=== PATIENT | female | born 1980 | race Caucasian/White ===

== ENCOUNTER 2024-02-10 22:39 | Emergency (ER) | payer MEDICAID, SELFPAY ==
[2024-02-10 22:44] VITALS: BP 153/111; PULSE 75; RESP 18; TEMP 36.1; O2SAT 97; BMI 62.1
--- NOTE | 2024-02-10 22:58 | EDS_ITS ---
HPI History of Present Illness Chief Complaint: Shortness of Breath Informant: patient Onset/Context/Timing Onset: Today Context: sudden Timing: Continuous Quality: Positive for - (Cannot catch my breath) Worsened by: Nothing Relieved by: Nothing Associated Symptoms cough, rhinorrhea and clear sputum; Negative for post nasal drip, ear pain, fever, sore throat, chills, sweats, white sputum, yellow sputum or green sputum Chest Pain: Positive for Sharp Narrative Narrative: Patient presents with chest pain and shortness of breath that began tonight. Patient states it began while she was getting ready to go to work. Patient states she feels like she cannot catch her breath. Patient states it has been constant. Patient states nothing makes it better nothing makes it worse. Patient states she is coughing up some clear sputum. Patient admits to some rhinorrhea which has been green and thick. Patient denies any fevers or chills. Patient states her pain is mainly over the left upper chest. Patient states that earlier it was on the right side. Patient describes it as sharp. Patient states she was recently diagnosed with influenza B last week. [facility] Medical History (Updated 02/11/24 @ 01:[address] Jesus Calloway DO) Diabetes Elevated LDL cholesterol level H/O blood clots HTN (hypertension) Home Medications carvedilol 6.25 mg tablet 6.25 mg PO BID 02/10/24 [History Last Taken Unknown] furosemide 20 mg tablet 20 mg PO DAILY 02/10/24 [History Last Taken Unknown] lisinopril 10 mg tablet 10 mg PO BID 02/10/24 [History Last Taken Unknown] metformin 500 mg tablet 500 mg PO BID 02/10/24 [History Last Taken Unknown] potassium chloride 10 mEq tablet,extended release (Klor-Con) 10 meq PO DAILY 02/10/24 [History Last Taken Unknown] azithromycin 250 mg tablet 250 mg PO DAILY #4 TABLETS 02/11/24 [Rx Last Taken Unknown] Allergy/AdvReac Type Severity Reaction Status Date / Time loratadine [From Claritin] Allergy Swelling Verified 02/10/24 22:40 Surgical History (Updated 02/10/24 @ 23:[address] Jesus Calloway, ) H/O dilation and curettage Hx of tonsillectomy Social History Smoking Status: Former smoker ROS ROS ED Constitutional Constitutional ED: Denies chills or fever(s) Eyes Eyes: Denies blurry vision or change in vision ENT ENT ED: Denies rhinorrhea or sore throat Cardiovascular Cardiovascular: Reports chest pain; Denies palpitations Respiratory/Chest Respiratory/Chest: Reports cough and dyspnea Gastrointestinal Gastrointestinal: Denies nausea or vomiting Genitourinary Genitourinary ED: Denies dysuria or hematuria Musculoskeletal Musculoskeletal: Denies back pain or neck pain Integumentary Denies abscess or rash Neurologic Neurologic: Denies headache(s) or weakness Allergic/Immunologic Allergic/Immunologic ED: Denies mouth swelling or urticaria EXAM Physical Exam Const Vital Signs: 02/10/24 22:44 02/10/24 23:26 02/10/24 23:26 Temperature 96.9 F L Temperature Source Temporal Pulse Rate 75 Respiratory Rate 18 Respiratory Effort Short of Breath Respiratory Depth Normal Respiratory Pattern Tachypnea Blood Pressure 153/111 H Blood Pressure Mean 125 Pulse Ox 97 Oxygen Delivery Method Room Air Room Air 02/11/24 00:40 Temperature Temperature Source Pulse Rate 70 Respiratory Rate 23 H Respiratory Effort Respiratory Depth Respiratory Pattern Blood Pressure 131/82 H Blood Pressure Mean 98 Pulse Ox 100 Oxygen Delivery Method Room Air Positive well nourished, well developed and obese General Appearance ED: well developed and NAD Nutritional Appearance: obese HEENT Reports moist mucous membranes Neck supple, no meningeal signs and no JVD Chest Wall Chest Narrative: There is reproducible tenderness of the left upper chest wall. There is no bony crepitance or step-off noted. There is no subcutaneous emphysema noted. Resp normal respiratory effort and clear to auscultation bilaterally Cardio regular rate and regular rhythm GI non-tender and non-distended Palpation: soft Neuro oriented x3, CN's II-XII intact bilaterally and no sensory deficits noted Zoey Coma Scale: document GCS findings Spontaneous Obeys Commands Oriented 15 Sensorium / Orientation: alert Motor Exam: strength 5/5 throughout Psych mental status grossly normal MDM MDM MDM Narrative Medical decision making narrative: Differential diagnosis includes cardiac dysrhythmia, cardiac ischemia, musculoskeletal chest pain, pulmonary embolism, pneumonia, and anxiety. EKG will be obtained to assess for cardiac dysrhythmia and cardiac ischemia. Chest x-ray will be obtained to assess for pneumonia and pneumothorax. CBC will be obtained to assess for leukocytosis and anemia. Basic metabolic profile will be obtained to assess for electrolyte abnormality and renal function. High- sensitivity troponin will be obtained to assess for cardiac ischemia. D-dimer will be obtained to assess for pulmonary embolism. Lab Data Attestation: I reviewed the patient's lab results. Lab results narrative: CBC was reviewed and was within normal limits. Basic metabolic profile was reviewed. BUN was slightly elevated at 21 and creatinine was slightly elevated at 1.03. GFR was normal. Anion gap was normal. High-sensitivity troponin was reviewed and was normal at 16. D-dimer was reviewed and was slightly elevated at 0.63. Labs: Laboratory Results - last 24 hr 02/10/24 02/10/24 23:09 23:47 WBC 8.2 RBC 4.95 Hgb 14.2 Hct 45.3 MCV 91.5 MCH 28.7 MCHC 31.3 L RDW Std Deviation 43.9 RDW Coeff of Nima 13.1 Plt Count 315 MPV 10.3 Immature Gran % (Auto) 0.200 Neut % (Auto) 72.6 H Lymph % (Auto) 18.2 L Richardson % (Auto) 5.7 Eos % (Auto) 2.8 Baso % (Auto) 0.5 Absolute Neuts (auto) 6.0 Absolute Lymphs (auto) 1.50 Nucleated RBC % 0 D-Dimer Quant (PE/DVT) 0.63 H* Sodium 139 Potassium 4.2 Chloride 106 Carbon Dioxide 28.0 Anion Gap 5 BUN 21 H Creatinine 1.03 H Estim Creat Clear Calc 122.36 Est GFR (MDRD) Af Amer 76 Est GFR (MDRD) Non-Af 62 BUN/Creatinine Ratio 20.4 H Glucose 122 H Calcium 9.3 Troponin I High Sens 16 Radiography Chest X-Ray - ED: 2 View, Read by ED Physician, Read by Radiologist and No Acute Disease CTA PE Study: No Evidence of PE and No Evidence of Dissection Diagnostic Testing: Clinical Impression(s) from Imaging Studies Chest X-Ray 02/10/24 23:06 IMPRESSION: No radiographic evidence of acute cardiopulmonary disease. Electronically Signed: Marcellus Weiner MD at 23:50 EDT , Chest CTA 02/11/24 01:02 IMPRESSION: No pulmonary embolism. Groundglass opacities of the right lower lobe could be infectious or inflammatory. Electronically Signed: Mick Prather MD at 1:46 EDT , PA and lateral chest x-ray was obtained. There are 2 views. On my independent interpretation, lung grider are clear. There is normal cardiac silhouette. Bony thorax is normal. There is no acute process noted. Radiologist also interpreted the x-ray and agrees. Because of the elevated D-dimer, CTA of the chest was obtained. There are mild groundglass opacities of the right lower lobe which could be infectious or inflammatory. This was interpreted by the radiologist was also independently reviewed by myself. EKG Initial EKG: Interpretation: Sinus Rhythm (76) and No Acute Injury Pattern Comments: EKG was obtained. On my independent interpretation, it showed a normal sinus rhythm with a rate of 76. NH interval, QRS interval, and QTc i ntervals were all normal. [place] was normal. There are no acute ST or T wave changes. Prior EKG tracings: not available for review Prior: No Prior Treatment and Re-Evaluation :: Patient was given aspirin here. Patient was advised of her findings. Patient was given a dose of Zithromax here. Patient was given a prescription for Zithromax. Patient was instructed to follow-up with her primary care physician in 5 to 7 days. Patient was instructed to take Tylenol as needed for pain or fever. Patient understood and was agreeable with the plan. All questions were answered. Discharge Plan Triage Chief Complaint: Shortness of Breath ED Provider: Jesus Calloway Dx/Rx/DC Orders Clinical Impression: Dyspnea, Pneumonia Instructions: ED Dyspnea, ED Pneumonia (Adult) Prescriptions: New azithromycin [azithromycin] 250 mg tablet 250 mg PO DAILY Qty: 4 0RF No Action furosemide 20 mg tablet 20 mg PO DAILY carvedilol 6.25 mg tablet 6.25 mg PO BID Rx Instructions: must administer with a meal/food potassium chloride [Klor-Con 10] 10 mEq tablet extended release 10 meq PO DAILY metformin 500 mg tablet 500 mg PO BID lisinopril 10 mg tablet 10 mg PO BID Stand Alone Forms: ED Work / School Excuse Primary Care Provider: Lesly Ware NP Referrals: Lesly Ware NP, [employer] [Primary Care Provider] - 5-7 Days Disposition Disposition: Home, Self Care
--- NOTE | 2024-02-10 23:05 | EKG12_ITS ---
Test Reason : DYSRHYTHMIA Blood Pressure : / mmHG Vent. Rate : 076 BPM Atrial Rate : 076 BPM P-R Int : 136 ms QRS Dur : 080 ms QT Int : 374 ms P-R-T Axes : -04 003 002 degrees QTc Int : 420 ms Normal sinus rhythm Low voltage Borderline Confirmed by Aries Christian ([id number]), sound editor MARITA DAY ([id number]) on 02/12/2024 1:42:07 PM Referred By: KATE Confirmed By:Aries Christian
--- NOTE | 2024-02-10 23:06 | RAD_ITS ---
INDICATION: chest pain EXAMINATION/TECHNIQUE: X-RAY - XR Chest 2 Views COMPARISON: None. FINDINGS: LINES/DEVICES: None. LUNGS: No consolidation, edema or effusion. No pneumothorax. MEDIASTINUM AND CARDIOVASCULAR STRUCTURES: Cardiac silhouette not enlarged. Central airways and mediastinal contour are unremarkable. BONES AND SOFT TISSUES: Unremarkable. RAD/Chest PA and Lateral IMPRESSION: No radiographic evidence of acute cardiopulmonary disease. Electronically Signed: Marcellus Weiner MD at 23:50 EDT ,
[2024-02-10] MEDS: Aspirin 81 MG TAB.CHEW 324 MG PO (23:19)
[2024-02-10 23:26] VITALS: O2SAT 97
[2024-02-11 00:31] LABS: Basophil# 0.04 X10^3/uL; Basophil% 0.5 % (0-1); Eosinophil# 0.23 X10^3/uL; Eosinophils% 2.8 % (0-5); Hematocrit 45.3 % (37-47); Hemoglobin 14.2 g/dL (12.0-15.0); Lymphocyte % 18.2 % (19-41); Mean Corp Hgb Conc 31.3 g/dL (32-36); Mean Corpuscular Hgb 28.7 pg (27.0-32.0); Mean Corpuscular Volume 91.5 fL (81-99); Mean Platelet Vol. 10.3 fl (6.2-12.0); Monocyte# 0.47 X10^3/uL; Monocyte% 5.7 % (0-10); NRBC Flagged by Analyzer 0 % (0-5); Neutrophil # 5.97 X10^3/uL (2.7-7.7); Neutrophil % 72.6 % (47-70); Platelet Count 315 K/mm3 (150-450); RBC Distribution Width CV 13.1 % (11.6-14.6); RBC Distribution Width SD 43.9 fl (35.1-43.9); Red Blood Count 4.95 M/mm3 (4.2-5.4); White Blood Count 8.2 K/mm3 (4.4-11.0)
[2024-02-11 00:34] LABS: Anion Gap 5 (5-15); BUN 21 mg/dL (7-18); BUN/Creat Ratio 20.4 RATIO (10-20); Calcium,Total 9.3 mg/dL (8.5-10.1); Chloride 106 mmol/L (98-107); Creatinine, Serum 1.03 mg/dL (0.55-1.02); EST Glomerular Filtration Rate 62 mL/min (>60); Est Glom Filt Rate - Afr Amer 76 mL/min (>60); Estimated Creatinine Clearance 122.36 ml/min; Glucose 122 mg/dL (74-106); Potassium 4.2 mmol/L (3.5-5.1); Sodium Level 139 mmol/L (136-145); Troponin-I HS 16 pg/mL (3.0-54.0)
[2024-02-11 00:40] VITALS: BP 131/82; PULSE 70; RESP 23; O2SAT 100
[2024-02-11 00:56] LABS: D-Dimer Quantitative (DVT/PE) 0.63 FEU/ug/m (0.27-0.49)
--- NOTE | 2024-02-11 01:02 | CT_ITS ---
STUDY: CTA CHEST REASON FOR EXAM: Female, 43 years old. Elevated D-dimer RADIATION DOSAGE (If Supplied By Facility): CTDIvol = ( 13.85 ) mGy, DLP = ( 518.88 ) mGycm TECHNIQUE: The examination was performed with the intravenous administration of IV 100mL Isovue-370. Post-processing of the angiographic images was performed, with multiplanar reformation and 3D reconstruction. Individualized dose optimization techniques were used for this CT. COMPARISON: Prior study dated: Radiograph 02/10/2024 FINDINGS: PULMONARY ARTERIES: Normal enhancement of the main pulmonary artery and right and left pulmonary arteries. Normal enhancement of the bilateral peripheral pulmonary arteries. There is no demonstrated pulmonary embolism. AORTA: Normal thoracic aorta and visualized great vessels. There is no demonstrated aortic dissection. MEDIASTINUM: Normal heart and pericardium. Normal mediastinum. Normal hilar regions. LUNGS/PLEURA: Normal visualized trachea and bronchi. The lungs are well expanded. Fissural lymph node along the right major fissure near the apex. Minimal groundglass opacities are seen in the right lower lobe. Pleural effusion. No pneumothorax. CHEST WALL: Normal chest wall structures. UPPER ABDOMEN: Normal visualized upper abdomen. OSSEOUS STRUCTURES: No acute or suspicious osseous abnormality. Mild degenerative changes of the spine. CT/CTA Chest W/WO Contrast IMPRESSION: No pulmonary embolism. Groundglass opacities of the right lower lobe could be infectious or inflammatory. Electronically Signed: Mick Prather MD at 1:46 EDT ,
[2024-02-11 01:59] VITALS: BP 128/84; BP 149/99; PULSE 76; PULSE 78; RESP 22; RESP 24; TEMP 36.4; O2SAT 99
[2024-02-11] MEDS: Azithromycin 250 MG Tablet 500 MG PO (02:02)
== END 2024-02-11 03:05 | disposition home or self-care (01) ==
PROVIDERS: Emergency Provider Emergency Medicine; PCP Nurse Practitioner Family; Visit Provider Emergency Medicine
DX: J18.9 Pneumonia, unspecified organism (principal); E11.9 Type 2 diabetes mellitus without complications; R06.00 Dyspnea, unspecified; I10 Essential (primary) hypertension; Z87.891 Personal history of nicotine dependence; Z79.899 Other long term (current) drug therapy; Z79.84 Long term (current) use of oral hypoglycemic drugs
CPT/HCPCS: 71046; 71275; 80048; 84484; 85025; 85379; 93005; 99284; Q9967; A4216

== ENCOUNTER 2024-02-23 22:41 | Emergency (ER) | payer MEDICAID, SELFPAY ==
[2024-02-23 22:42] VITALS: BP 143/84; PULSE 76; RESP 20; TEMP 36.6; O2SAT 100
--- NOTE | 2024-02-23 23:04 | RAD_ITS ---
INDICATION: cough, sob, brief R CP EXAMINATION/TECHNIQUE: X-RAY - XR Chest 2 Views COMPARISON: No relevant prior comparison study available FINDINGS: LINES/DEVICES: None. LUNGS: No consolidation, edema or effusion. No pneumothorax. MEDIASTINUM AND CARDIOVASCULAR STRUCTURES: Cardiac silhouette not enlarged. Central airways and mediastinal contour are unremarkable. BONES AND SOFT TISSUES: Unremarkable. RAD/Chest PA and Lateral IMPRESSION: No radiographic evidence of acute cardiopulmonary disease. Electronically Signed: Daniela Thomason MD at 23:37 EDT ,
--- NOTE | 2024-02-23 23:05 | EKG12_ITS ---
Test Reason : CP Blood Pressure : / mmHG Vent. Rate : 078 BPM Atrial Rate : 078 BPM P-R Int : 142 ms QRS Dur : 080 ms QT Int : 372 ms P-R-T Axes : 004 019 022 degrees QTc Int : 424 ms Normal sinus rhythm Normal ECG Confirmed by Aries Christian ([id number]), advertising editor MARITA DAY ([id number]) on 02/25/2024 10:54:12 AM Referred By: DELLA Confirmed By:Aries Christian
--- NOTE | 2024-02-23 23:05 | ED.VIS.CHEST ---
HPI History of Present Illness Chief Complaint: Chest Pain Informant: patient Narrative Narrative: Patient started having a cough yesterday occasionally productive of clear sputum. She has occasionally had dyspnea with exertion even when she is not coughing. She does not have asthma. 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 It is not present right now. At rest right now she is not dyspneic. She has had no fevers or chills. 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 No travel out of the region recently. No history of heart or lung problems, she is a diabetic and takes metformin. States 2 years ago she was diagnosed with a PE, she does not know the contacts. However, she states she did not take anticoagulants because she could not afford $500 per month. When asked if she considered other medications, she states she did not follow-up and was not aware that there were cheaper alternatives. She denies any recent immobilization, hospitalization, long travel, surgery, leg pain or swelling, presyncope or syncope. [facility] Medical History Diabetes Elevated LDL cholesterol level H/O blood clots HTN (hypertension) Home Medications carvedilol 6.25 mg tablet 6.25 mg PO BID 02/10/24 [History Last Taken Unknown] furosemide 20 mg tablet 20 mg PO DAILY 02/10/24 [History Last Taken Unknown] lisinopril 10 mg tablet 10 mg PO BID 02/10/24 [History Last Taken Unknown] metformin 500 mg tablet 500 mg PO BID 02/10/24 [History Last Taken Unknown] potassium chloride 10 mEq tablet,extended release (Klor-Con) 10 meq PO DAILY 02/10/24 [History Last Taken Unknown] levofloxacin 750 mg tablet 750 mg PO Q24H #5 tabs 02/24/24 [Rx Last Taken Unknown] Allergy/AdvReac Type Severity Reaction Status Date / Time loratadine [From Claritin] Allergy Swelling Verified 02/23/24 22:44 Surgical History (Updated 02/10/24 @ 23:[address] Jesus Calloway, DO) H/O dilation and curettage Hx of tonsillectomy Social History Smoking Status: Former smoker ROS ROS ED Constitutional Constitutional ED: Denies chills or fever(s) Eyes Eyes: Denies change in vision or diplopia ENT ENT ED: Denies rhinorrhea or sore throat Cardiovascular Cardiovascular: Reports as per HPI and chest pain; Denies leg edema or palpitations Respiratory/Chest Respiratory/Chest: Reports cough, dyspnea on exertion and sputum Gastrointestinal Gastrointestinal: Denies abdominal pain, diarrhea, nausea or vomiting Genitourinary Genitourinary ED: Denies dysuria or hematuria Musculoskeletal Musculoskeletal: Denies back pain or neck pain Integumentary Denies abscess or rash Neurologic Neurologic: Denies headache(s), paresthesias or weakness Psychiatric Psychiatric: Denies anxiety or suicidal thoughts EXAM Physical Exam Const Vital Signs: 02/23/24 22:42 02/23/24 22:56 02/23/24 23:42 Temperature 97.9 F Temperature Source Temporal Pulse Rate 76 98 Respiratory Rate 20 H 16 Respiratory Effort Normal Non-Labored Blood Pressure 143/84 H 129/82 H Blood Pressure Mean 103 97 Pulse Ox 100 99 Oxygen Delivery Method Room Air Room Air 02/24/24 00:00 02/24/24 01:00 02/24/24 02:22 Temperature Temperature Source Pulse Rate 98 73 79 Respiratory Rate 16 26 H 16 Respiratory Effort Blood Pressure 130/85 H 122/76 H 132/92 H Blood Pressure Mean 100 91 105 Pulse Ox 99 100 98 Oxygen Delivery Method Room Air Room Air Room Air Positive well nourished, well developed and obese General Appearance ED: well developed and NAD Nutritional Appearance: obese HEENT Reports moist mucous membranes normocephalic and atraumatic Eyes PERRL and EOMs intact bilaterally Neck full ROM and supple Chest Wall inspection of chest normal and palpation of chest normal Resp normal respiratory effort and clear to auscultation bilaterally Cardio regular rate, regular rhythm and no murmurs Rate: Negative for tachycardic Peripheral Pulses: pulses 2+ throughout GI non-tender and non-distended Auscultation: normoactive bowel sounds Palpation: soft Back/Spine no CVA tenderness General Back: other FROM Extremity normal to inspection General Extremety ED: Negative for edema, pulses abnormal or tenderness General Extremity: Negative for edema or pulses abnormal Neuro oriented x3, CN's II-XII intact bilaterally and no sensory deficits noted Sensorium / Orientation: awake and alert Motor Exam: strength 5/5 throughout Skin no rashes or lesions noted and no wounds Heart Score History: Slightly/Non-Suspicious ECG: Normal Age: </= 45 years Risk Factors: 1 or 2 Risk Factors Troponin: </= Normal Limit Score: 1 MDM MDM MDM Narrative Medical decision making narrative: Initially considering PE given she has a history of it although she is not tachycardic and not hypoxic, performed a D-dimer, chest x-ray, EKG. EKG on my interpretation is normal. 2 view chest x-ray my interpretation is also normal. Radiology is in agreement with the chest x-ray. The D-dimer is slightly elevated. Therefore, I reflexively ordered a CTA after seeing that she had normal renal function. I happened to notice that this was just 2 weeks ago that this was last drawn. Additionally, she had a D-dimer done at that time which was also nonspecifically elevated like this 1 is. This led me to see that she had a CTA 2 weeks ago, it was negative for pulmonary embolism, and showed nonspecific groundglass infiltrates. The patient did not tell me that she was here 2 weeks ago until I asked her about all of this, she states she was here for the same thing and they treated me for pneumonia. Hence, this is why she came today and she wants to have the CAT scan. I advised her it is not necessary to put her kidneys at risk with contrast for another PE evaluation if she just had that ruled out, but I am willing to obtain a CT without contrast and she is agreeable. I reviewed the results as well as the report which I agree with, it appears to be identical to the CT that she had 2 weeks ago. However, radiology interprets the scan as similar but a little more prominent and not able to rule out pneumonia/infection, although he does not report that there is airspace consolidation. I do not think this is likely recurrent bacterial infectious etiology, and since it looks very similar without additional opacities, I do not think repeating her labs are necessary emergently. In speaking with her about her visit 2 weeks ago, she was placed on a Z-Joaquín, she states it seemed to fix her cough and then later her cough seemed to gradually come back and is worse now. I did repeat her troponin, it is negative and lower than it was 2 weeks ago. There are other noninfectious etiologies that could explain groundglass opacities, this is nonspecific. I recommend that she follow-up for further evaluation, she may need test that are not available in the emergency department such as an echocardiogram, although her pattern on imaging is less likely to be cardiogenic pulmonary edema. Differential here includes interstitial lung processes, fibrosis, nonfibrotic hypersensitivity pneumonitis, vasculitis, sarcoidosis, eosinophilic pneumonia although on her labs a couple weeks ago she did not have eosinophilia; as well as viral infections including pneumonia and bronchiolitis. To this effect, we did perform the only viral swab that we are able to obtain stat which is RSV/influenza/COVID, it is negative, but this does not rule out the possibility of other viral infections that could cause this. Of note the groundglass opacities in this patient are very few and they are peripheral. At this point given that she seemed to improve on antibiotics before, I am going to put her on Levaquin 750 for 5 days, and refer her to pulmonology. She states her prior PCP stopped taking her insurance, she was given pamphlet for PCPs that she can check to see if they take her insurance. Lab Data Attestation: I reviewed the patient's lab results. Labs: Laboratory Results - last 24 hr 02/23/24 02/23/24 00:08 23:21 D-Dimer Quant (PE/DVT) 0.79 H* Troponin I High Sens 11 Radiography Diagnostic Testing: Clinical Impression(s) from Imaging Studies Chest X-Ray 02/23/24 23:04 IMPRESSION: No radiographic evidence of acute cardiopulmonary disease. Electronically Signed: Daniela Thomason MD at 23:37 EDT , Chest CT 02/24/24 00:10 IMPRESSION: Ill-defined groundglass opacities are seen in the right lower lobe may represent pneumonia there are slightly more prominent when compared to the previous study. Multiple bilateral lung nodules are also noted have nonspecific appearance, the largest measures approximately 8 mm is in the superior segment of the right lower lobe, axial image 48, series 4. A short-term follow-up in 6 months is recommended to exclude a neoplastic process Electronically Signed: Daniela Thomason MD at 2:18 EDT Reading Location ID and State: [facility] / [place] Tel , Service support , Rhythm Strip Rhythm Strip: Sinus Rhythm Rate: 80 Ectopy: PVC(s) (Occasional) EKG Initial EKG: Attestation: I personally reviewed and interpreted this EKG as follows: Interpretation: Sinus Rhythm and No Acute Injury Pattern Comments: Normal EKG Discharge Plan Triage Chief Complaint: Chest Pain ED Provider: Tiago Thompson Dx/Rx/DC Orders Clinical Impression: YANES (dyspnea on exertion), Chest pain, non-cardiac, Ground glass opacity present on imaging of lung, Pulmonary nodule Instructions: ED Dyspnea Prescriptions: New levofloxacin 750 mg tablet 750 mg PO Q24H Qty: 5 0RF No Action furosemide 20 mg tablet 20 mg PO DAILY carvedilol 6.25 mg tablet 6.25 mg PO BID Rx Instructions: must administer with a meal/food potassium chloride [Klor-Con 10] 10 mEq tablet extended release 10 meq PO DAILY metformin 500 mg tablet 500 mg PO BID lisinopril 10 mg tablet 10 mg PO BID Primary Care Provider: Care Physician,No Primary Referrals: Shelton Sutherland DO [Med Staff - Active Staff] - As soon as possible (call for appt) Activity Restrictions/Additional Instructions: See included pamphlet for primary care doctors that you can contact to see if they take your insurance Disposition Disposition: Home, Self Care
[2024-02-23 23:42] VITALS: BP 129/82; PULSE 98; RESP 16; O2SAT 99
[2024-02-23 23:43] LABS: D-Dimer Quantitative (DVT/PE) 0.79 FEU/ug/m (0.27-0.49)
[2024-02-24] VITALS: BP 130/85; PULSE 98; RESP 16; O2SAT 99
--- NOTE | 2024-02-24 00:10 | CT_ITS ---
INDICATION: sob, R chest pain, cough EXAMINATION: CT CHEST WITHOUT CONTRAST - CT Chest W/O Contrast Injection TECHNIQUE: Helically acquired images were obtained of the chest. A radiation dose optimization technique was used for this scan. IV Contrast dosage and agent: None. RADIATION DOSAGE (If Supplied By Facility): CTDIvol = ( 20.15 ) mGy, DLP = ( 669.60 ) mGycm COMPARISON: 02/11/2024 FINDINGS: LUNGS, PLEURA AND LARGE AIRWAYS: Ill-defined groundglass opacities are seen in the right lower lobe may represent pneumonia there are slightly more prominent when compared to the previous study. Multiple bilateral lung nodules are also noted have nonspecific appearance, the largest measures approximately 8 mm is in the superior segment of the right lower lobe, axial image 48, series 4. A short-term follow-up in 6 months is recommended to exclude a neoplastic process THYROID: No thyroid lesions. HEART AND PERICARDIUM: Heart size is normal. No pericardial effusion. CORONARY ARTERIES: Coronary artery calcification VESSELS: Thoracic aorta is not dilated. MEDIASTINUM AND POOJA: No mediastinal or hilar adenopathy. Esophagus is unremarkable. No hiatal hernia. UPPER ABDOMEN: No acute pathology. BONES: No suspicious lytic or blastic abnormality. CT/Chest without Contrast IMPRESSION: Ill-defined groundglass opacities are seen in the right lower lobe may represent pneumonia there are slightly more prominent when compared to the previous study. Multiple bilateral lung nodules are also noted have nonspecific appearance, the largest measures approximately 8 mm is in the superior segment of the right lower lobe, axial image 48, series 4. A short-term follow-up in 6 months is recommended to exclude a neoplastic process Electronically Signed: Daniela Thomason MD at 2:18 EDT ,
[2024-02-24] MEDS: 0.9% Normal Saline (500mL Bag) 500 ML 999 ML IV (00:26)
[2024-02-24 00:40] LABS: Troponin-I HS 11 pg/mL (3.0-54.0)
[2024-02-24 01:00] VITALS: BP 122/76; PULSE 73; RESP 26; O2SAT 100
[2024-02-24 02:22] VITALS: BP 132/92; PULSE 79; RESP 16; O2SAT 98
[2024-02-24 02:39] VITALS: BP 130/62; PULSE 79; RESP 16; TEMP 36.7; O2SAT 96
== END 2024-02-24 02:40 | disposition home or self-care (01) ==
PROVIDERS: Emergency Provider Emergency Medicine; Visit Provider Emergency Medicine
DX: R06.09 Other forms of dyspnea (principal); E11.9 Type 2 diabetes mellitus without complications; R07.89 Other chest pain; R91.1 Solitary pulmonary nodule; I10 Essential (primary) hypertension; E66.9 Obesity, unspecified; Z79.899 Other long term (current) drug therapy; Z79.84 Long term (current) use of oral hypoglycemic drugs; Z86.711 Personal history of pulmonary embolism; Z87.891 Personal history of nicotine dependence
CPT/HCPCS: 71046; 71250; 84484; 85379; 87631; 93005; 96360; 96361; 99283; J7030; A4216

== ENCOUNTER 2025-09-08 17:11 | Emergency (ER) | payer MEDICAID, SELFPAY ==
[2025-09-08 17:13] VITALS: BP 137/103; PULSE 67; RESP 18; TEMP 36; O2SAT 98
[2025-09-08 17:15] VITALS: BMI 68.1
--- NOTE | 2025-09-08 18:08 | RAD_ITS ---
PROCEDURE: CHEST PA AND LATERAL 09/08/2025 REASON FOR EXAM: HTN TECHNIQUE: Procedure Code: RADCXR Modality: DX Procedure: CHEST PA AND LATERAL COMPARISON: None. FINDINGS: Lungs/Pleura: Clear. No pneumothorax or sizable pleural effusion. Heart/Mediastinum: Within normal limits. Bones/Soft tissues: Degenerative changes of the spine. RAD/Chest PA and Lateral IMPRESSION: No acute cardiopulmonary disease. Reading Location: [id number]
--- NOTE | 2025-09-08 18:09 | EKG12_ITS ---
Test Reason : DYSRHYTHMIA Blood Pressure : */* mmHG Vent. Rate : 70 BPM Atrial Rate : 70 BPM P-R Int : 160 ms QRS Dur : 76 ms QT Int : 376 ms P-R-T Axes : 28 5 11 degrees QTcB Int : 406 ms Normal sinus rhythm Low voltage QRS Borderline Confirmed by Aries Christian ([id number]), book or script editor FARRAH OCHOA ([id number]) on 09/09/2025 1:48:17 PM Referred By: Confirmed By: Aries Christian
[2025-09-08 18:14] VITALS: BP 116/73; PULSE 74
--- OUTSIDE RECORDS SUMMARY | 2025-09-08 18:18 | XMS RPT_ITS | CCD ---
Author Organization [facility] Care Team Providers Care Customer Experience Associate Name Role Phone NEYMAR DIEGO CNP Attending Unavailable NEYMAR DIEGO CNP Primary Care Unavailable NEYMAR DIEGO CNP Admitting Unavailable Unavailable Primary Care Provider UnavailTiago Peralta Attending Unavailable Care Physician, No Primary Primary Care Unava ilJesus Greenwood Attending Unavailable Chaz CROWN IRONER OPERATOR, Neymar Primary Care Unavailable Nataliia TRANSPORTATION COORDINATOR.JHONNY Donna Marion Primary Care Provider TRILL, DONNA C Referring Unavailable TRILL, DONNA C Primary Care Unavailable NATALIIA, DONNA C Attending Unavailable SARAHLL, DONNA C Primary Care Unavailable JOSESITO RIZZO Referring Unavailable TRILL, DONNA C Primary Care Unavailable TRILL, DONNA C Referring Unavailable TRILL, DONNA C Primary Care Unavailable TRILL, DONNA C Primary Care Unavailable TRILL, DONNA C Referring Unavailable TRILL, DONNA C Referring Unavailable TRILL, DONNA C Primary Care Unavailable TRILL, DONNA C Primary Care Unavailable CHELSEA RICKS Attending Unavailable TRILL, DONNA C Primary Care Unavailable JOSESITO RIZZO Attending Unavailable Allergies Allergy Classification Reported Allergen(s) Allergy Type Date of Onset Reaction(s) Facility Loratadine (1 source) Loratadine Drug Allergy 4 Other: See Comments [facility] (20 sources) Loratadine; Translations: [LORATADINE] Drug Allergy 4 Other: See Comments [facility] (1 source) Loratadine Drug Allergy 4 [facility] Repository Medications Current Medications Medication Drug Class(es) Dates Sig (Normalized) Sig (Original) atorvastatin 20 mg oral tablet (20 sources) HMG-CoA Reductase Inhibitor Start: 07-14-2024 End: 06-25-2025 take 1 tablet by mouth once daily at bedtime atorvastatin (LIPITOR) 20 mg tablet Take 1 tablet by mouth daily at bedtime. 90 tablet 1 12/27/2024 Active Start: 02-11-2024 take 1 tablet by debby th once daily at bedtime atorvastatin (LIPITOR) 20 mg tablet Take 20 mg by mouth daily at bedtime. 02/11/2024 Active Comment on above: Take 20 mg by mouth daily at bedtime. benoxinate hydrochloride 4 mg/ml / fluorescein sodium 3 mg/ml ophthalmic solution (2 sources) Diagnostic Dye Start: 08-01-2024 End: 08-01-2024 fluorescein-benoxi rashmi 0.3-0.4 % 1 Drop (FLURESS) Start: 08-01-2024 End: 08-01-2024 1 Drop, BOTH EYES, DIRECT ED, Starting on Sun08/01/24 at 1100, Until Sun08/01/24 at 2259, Administer for applanation tonometry. In the event of a Fluress shortage, administer [place]-Fluor 1 drop into both eyes as directed for applanation tonometry Blood-Glucose Meter,Continuo us (DEXCOM G6 PATHOLOGY LABORATORY DIRECTOR) misc (16 sources) Start: 12-27-2024 Blood-Glucose Meter,Continuous (DEXCOM G6 PATHOLOGY LABORATORY DIRECTOR) misc Indications: Controlled type 2 diabetes mellitus without complication, with long-term current use of insulin (HCC) USE TO CHECK BLOOD SUGAR AT LEAST 4 TIMES DAILY 1 Each 12/27/2024 Active Start: 10-07-2024 End: 12-27-2024 Blood-Glucose Meter,Continuo us (DEXCOM G6 PATHOLOGY LABORATORY DIRECTOR) misc Indications: Controlled type 2 diabetes mellitus without complication, with long-term current use of insulin (HCC) Use to check blood sugar at least four (4) times daily. 1 Each 10/07/2024 12/27/2024 Discontinued Start: 10-07-2024 Blood-Glucose Meter,Continuous (DEXCOM G6 PATHOLOGY LABORATORY DIRECTOR) misc Indications: Controlled type 2 diabetes mellitus without complication, with long-term current use of insulin (HCC) Use to check blood sugar at least four (4) times daily. 1 Each 10/07/2024 Active Blood-Glucose Sensor (DEXCOM G6 SENSOR) mesfin (16 sources) Start: 10-07-2024 Blood-Glucose Sensor (DEXCOM G6 SENSOR) mesfin Indications: Controlled type 2 diabetes mellitus without complication, with long-term current use of insulin (HCC) Apply new sensor every ten (10) days to abdomen. 9 Each 3 10/07/2024 Active Blood-Glucose Transmitter (DEXCOM G6 TRANSMITTER) mesfin (16 sources) Start: 10-07-2024 Blood-Glucose Transmitter (DEXCOM G6 TRANSMITTER) mesfin Indications: Controlled type 2 diabetes mellitus without complication, with long-term current use of insulin (HCC) Apply new transmitter every 90 days. Clean transmitter with an alcohol swab with each sensor change. 1 Each 3 10/07/2024 Active carvedilol 6.25 mg oral tablet (20 sources) alpha-Adrenerg ic Eliana, beta-Adrenergi c Eliana Start: 07-14-2024 End: 06-11-2025 take 1 tablet by mouth every twelve hours carvedilol (COREG) 6.25 mg tablet TAKE 1 TABLET BY MOUTH EVERY 12 HOURS 180 tablet 06/11/2025 Active Start: 02-10-2024 take 6.25 mg by mout h twice daily at mealtime Carvedilol Active 6.25 MG PO TWICE A DAY February 10, 2024 12:00am must administer with a meal/food Start: 12-18-2023 take 1 tablet by debby th every twelve hours carvedilol (COREG) 6.25 mg tablet Take 1 tablet by mouth every 12 hours. 12/18/2023 Active Comment on above: Take 1 tablet by debby th every 12 hours. cholecalciferol 0.01 mg oral tablet (20 sources) Vitamin D Start: take 2 capsules by mouth once VITAMIN D-3 10 mcg (400 unit) tab Take 2 capsules by mouth every afternoon. 05/20/2024 Active Start: 04-08-2024 End: 04-08-2025 take 2 capsules by mouth once daily Cholecalciferol, Vitamin D3, (VITAMIN D-3) 50 mcg (2,000 unit) cap Indications: Vitamin D deficiency Take 2 capsules by mouth once daily. 60 capsule 11 04/08/2024 Active ergocalciferol 1.25 mg oral capsule (20 sources) Provitamin D2 Compound Start: 06-13-2024 End: 08-04-2025 take 1 capsule by mouth every week ergocalciferol 50,000 unit capsule (VITAMIN D2, DRISDOL) Take 1 capsule by mouth once a week 4 capsule 07/13/2025 Active furosemide 20 mg oral tablet (20 sources) Loop Diuretic Start: 07-14-2024 End: 06-11-2025 take 1 tablet by mouth once furosemide (LASIX) 20 mg tablet TAKE 1 TABLET BY MOUTH ONCE DAILY EVERY AFTERNOON 90 tablet 06/11/2025 Active Start: 12-18-2023 take 1 tablet by mouth once fu rosemide (LASIX) 20 mg tablet Take 1 tablet by mouth every afternoon. 12/18/2023 Active Comment on above: Take 1 tablet by debby th every afternoon. 3 ml insulin aspart, human 100 unt/ml pen injector (20 sources) Insulin Analog Start: 12-27-2024 End: 01-05-2025 insulin aspart U-100 (NOVOLOG FLEXPEN U-100 INSULIN) 100 unit/mL (3 mL) Indications: Controlled type 2 diabetes mellitus without complication, with long-term current use of insulin (HCC) INJECT 3 UNITS AT EACH MEAL PLUS 1 UNIT FOR EVERY 20 MG /DL OVER 100 ON GLUCOMETER. MAX DAILY USE 40 UNITS PER DAY 36 mL 1 01/05/2025 Active Start: 02-14-2024 End: 12-25-2024 NOVOLOG FLEXPEN U-100 INSULI N 100 unit/mL (3 mL) Indications: Controlled type 2 diabetes mellitus without complication, with long-term current use of insulin (HCC) INJECT 3 UNITS AT EACH MEAL PLUS 1 UNIT FOR EVERY 20 MG /DL OVER 100 ON GLUCOMETER. MAX DAILY USE 40 UNITS PER DAY 36 mL 1 07/14/2024 12/25/2024 Discontinued Comment on above: INJECT 3 UNITS AT EA CH MEAL PLUS 1 UNIT FOR EVERY 20 MG /DL OVER 100 ON GLUCOMETER. MAX DAILY USE 40 UNITS PER DAY insulin glargine-yfgn (SEMGLEE) 100 unit/mL (3 mL) insulin pen (9 sources) Start: 03-11-2025 End: 09-07-2025 insulin glargine-yfgn (SEMGLEE) 100 unit/mL (3 mL) insulin pen Inject 15 Units subcutaneously daily at bedtime. 6 mL 4 03/11/2025 09/07/2025 Active Start: 01-07-2025 End: 03-11-2025 insulin glargine-yfgn (SEMGL EE) 100 unit/mL (3 mL) insulin pen INJECT 15 UNITS SUBCUTANEOUSLY ONCE DAILY AT BEDTIME 3 mL 11 01/07/2025 03/11/2025 Discontinued Start: 01-07-2025 insulin glargi ne-yfgn (SEMGLEE) 100 unit/mL (3 mL) insulin pen INJECT 15 UNITS SUBCUTANEOUSLY ONCE DAILY AT BEDTIME 3 mL 11 01/07/2025 Active levonorgestrel 0.513422 mg/hr intrauterine system (20 sources) Progestin, Progestin-containing Intrauterine Device levonorgestrel (MIRENA) 21 mcg/24 hr (8 yrs) 52 mg IUD 1 Each by INTRAUTERINE route one time only. Active lisinopril 10 mg oral tablet (20 sources) Angiotensin Converting Enzyme Inhibitor Start: 2023 End: 2024 take 1 tablet by mouth every twelve hours lisinopril (ZESTRIL) 10 mg tablet TAKE 1 TABLET BY MOUTH EVERY 12 HOURS 180 tablet 06/11/2025 Active Start: 02-10-2024 take 10 mg by mouth twice andrés y Lisinopril Active 10 MG PO TWICE A DAY February 10, 2024 12:00am Start: 12-18-2023 take 1 tablet by debby th every twelve hours lisinopril (ZESTRIL) 10 mg tablet Take 1 tablet by mouth every 12 hours. 12/18/2023 Active Comment on above: Take 1 tablet by debby th every 12 hours. metFORMIN hydrochloride 500 mg oral tablet (20 sources) Biguanide Start: 03-13-2025 End: 06-11-2025 take 1 tablet by mouth every twelve hours metFORMIN (GLUCOPHAGE) 500 mg tablet TAKE 1 TABLET BY MOUTH EVERY 12 HOURS 180 tablet 06/11/2025 Active Start: 07-14-2024 End: 01-10-2025 take 1 tablet by mouth every twelve hours metFORMIN (GLUCOPHAGE) 500 mg tablet TAKE 1 TABLET BY MOUTH EVERY 12 HOURS 180 tablet 12/23/2024 Active Start: 02-10-2024 take 500 mg by mouth twice daily Metformin Active 500 MG PO TWICE A DAY February 10, 2024 12:00am Start: 12-18-2023 take 1 tablet by debby th every twelve hours metFORMIN (GLUCOPHAGE) 500 mg tablet Take 1 tablet by mouth every 12 hours. 12/18/2023 Active Comment on above: [facility] phenylephrine hydrochloride 25 mg/ml ophthalmic solution (1 source) alpha-1 Adrenergic Agonist Start: End: PHENYLephrine 2.5 % 1 Drop (AK-DILATE, JAY-SYNEPHRINE) potassium chloride 10 meq extended release oral tablet (20 sources) Start: End: take 1 tablet by mouth once potassium chloride (K-TAB) 10 mEq tablet Take 1 tablet by mouth every afternoon. 90 tablet 1 12/27/2024 06/25/2025 Active Start: 12-18-2023 End: 06-16-2024 take 1 tablet by mouth once potassium chloride (K-TAB) 10 mEq tablet Take 1 tablet by mouth every afternoon. 30 tablet 1 06/16/2024 Active Comment on above: [facility] predniSONE 20 mg oral tablet (2 sources) Start: 06-06-2024 End: 06-11-2024 take 2 tablets by mouth once daily predniSONE (DELTASONE) 20 mg tablet Take 2 tablets by mouth once daily for 5 days. 10 tablet 0 06/06/2024 06/11/2024 Active Start: 02-26-2024 End: 03-02-2024 take 2 tablets by mouth once daily predniSONE (DELTASONE) 20 mg tablet Take 2 tablets by mouth once daily for 5 days. 10 tablet 0 02/26/2024 03/02/2024 Active Comment on above: Take 2 tablets by mo [facility] once daily for 5 days. tropicamide 10 mg/ml ophthalmic solution (2 sources) Anticholinergic Start: 08-01-2024 End: 08-01-2024 tropicamide 1 % 1 Drop (MYDRIACYL) Start: 08-01-2024 End: 08-01-2024 1 Drop, BOTH EYES, DIRECT ED, Starting on Sun08/01/24 at 1100, Until Sun08/01/24 at 2259, Administer for dilation Completed/Discontinued Medications Medication Drug Class(es) Dates Sig (Normalized) Sig (Original) amoxicillin 875 mg / clavulanate 125 mg oral tablet (3 sources) Penicillin-class Antibacterial Start: 06-06-2024 End: 06-16-2024 take 1 tablet by mouth every twelve hours amoxicillin-clavul anate potassium (AUGMENTIN) 875-125 mg per tablet Take 1 tablet by mouth every 12 hours for 10 days. 20 tablet 0 06/06/2024 06/13/2024 Discontinued Start: 02-26-2024 End: 03-07-2024 take 1 tablet by mouth every twelve hours amoxicillin-clavulanate potassium (AUGMENTIN) 875-125 mg per tablet Take 1 tablet by mouth every 12 hours for 10 days. 20 tablet 0 02/26/2024 03/07/2024 Active Comment on above: Take 1 tablet by debby every 12 hours for 10 days. azithromycin 250 mg oral tablet (4 sources) Macrolide Antimicrobial Start: End: azithromycin (ZITHROMAX) 250 mg tablet insulin glargine 100 unt/ml injectable solution (20 sources) Insulin Analog Start: End: inject 15 [IU] by subcutaneous injection once daily at bedtime insulin glargine (LANTUS) 100 unit/mL injection Inject 15 Units subcutaneously daily at bedtime. 4.5 mL 11 01/03/2025 01/07/2025 Discontinued Start: 12-18-2023 End: 01-10-2025 LANTUS SOLOSTAR U-100 INSULI N 100 unit/mL (3 mL) Indications: Controlled type 2 diabetes mellitus without complication, with long-term current use of insulin (HCC) INJECT 15 UNITS SUBCUTANEOUSLY TWICE DAILY 27 mL 12/23/2024 01/03/2025 Discontinued Comment on above: INJECT 15 UNITS SUBC UTANEOUSLY TWICE DAILY ipratropium bromide 0.042 mg/actuat metered dose nasal spray (20 sources) Anticholinergic Start: 02-26-20 End: 06-25-20 ipratropium bromide (ATROVENT) 42 mcg (0.06 %) nasal spray Use 2 Sprays in the nose three times a day. 27 mL 3 02/26/2024 06/25/2024 Comment on above: Use 2 Sprays in the nose three times a day. levoFLOXacin 750 mg oral tablet (3 sources) Quinolone Antimicrobial Start: 02-24-20 End: 03-11-20 take 1 tablet by mouth once levoFLOXacin (LEVAQUIN) 750 mg tablet Take 1 tablet by mouth every afternoon. 0 02/24/2024 03/11/2024 Discontinued Start: 02-24-2024 take 750 mg by mouth every twenty-four hours Levofloxacin Active 750 MG PO Q24H February 24, 2024 12:00am Comment on above: Take 1 tablet by debby th every afternoon. oseltamivir 75 mg oral capsule (2 sources) Neuraminidase Inhibitor Start: 02-02-20 End: 03-11-20 take 1 capsule by mouth every twelve hours oseltamivir (TAMIFLU) 75 mg capsule Take 1 capsule by mouth every 12 hours. 0 02/02/2024 03/11/2024 Discontinued Comment on above: Take 1 capsule by mo uth every 12 hours. Problems Active Problems Problem Classification Problem Date Documented Date Episodic/Chronic Acute bronchitis (2 sources) Acute bronchitis; Translations: [Acute bronchitis, unspecified] 02-26-2024 Episodic Anxiety disorders (1 source) Posttraumatic stress disorder; Translations: [Post-traumatic stress disorder, unspecified] 05-05-2024 Chronic Blindness and vision defects (1 source) Bilateral regular astigmatism; Translations: [Regular astigmatism, bilateral] 08-01-2024 Episodic Diabetes mellitus with complications (3 sources) Type 2 diabetes mellitus with hyperglycemia; Translations: [Type 2 diabetes mellitus with diabetic polyneuropathy] Onset: 11-29-2023 05-07-2024 Chronic Diabetes mellitus without complication (20 sources) Type 2 diabetes mellitus without complication; Translations: [Type 2 diabetes mellitus without complications] Onset: 03-11-2024 03-11-2024 Chronic Disorders of lipid metabolism (20 sources) Dyslipidemia; Translations: [Hyperlipidemia, unspecified] Onset: 05-07-2024 05-07-2024 Chronic Essential hypertension (20 sources) Essential (primary) hypertension; Translations: [Essential hypertension] Onset: 11-29-2023 03-11-2024 Chronic Fluid and electrolyte disorders (1 source) Hypokalemia; Translations: [Hypokalemia] Onset: 11-29-2023 Episodic Immunizations and screening for infectious disease (4 sources) Patient encounter status; Translations: [Encounter for screening for human papillomavirus (HPV)] 04-08-2024 Episodic Malaise and fatigue (1 source) Other fatigue; Translations: [Other fatigue] Onset: 11-29-2023 Episodic Miscellaneous mental health disorders (1 source) Eating disorder; Translations: [Other specified eating disorder] 05-05-2024 Chronic Nonspecific chest pain (2 sources) Non-cardiac chest pain; Translations: [Other chest pain] Onset: 02-29-2024 02-24-2024 Episodic Nutritional deficiencies (3 sources) Vitamin D deficiency; Translations: [Vitamin D deficiency, unspecified] 03-11-2024 Chronic Other connective tissue disease (1 source) Pain in right hand; Translations: [Pain in right hand] 09-30-2024 Episodic Other connective tissue disease (1 source) Pain in left foot; Translations: [Foot pain, left] Onset: 08-29-2025 Episodic Other eye disorders (1 source) Pallor of optic disc; 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, bilateral] 08-01-2024 Chronic Other lower respiratory disease (2 sources) Dyspnea; Translations: [Dyspnea, unspecified] 02-11-2024 Episodic Other lower respiratory disease (1 source) Dyspnea on exertion; Translations: [Other forms of dyspnea] 02-24-2024 Episodic Other lower respiratory disease (2 sources) Nodule of lung; Translations: [Solitary pulmonary nodule] 02-24-2024 Episodic Other lower respiratory disease (1 source) Other nonspecific abnormal finding of lung field; Translations: [Ground glass opacity present on imaging of lung] 02-24-2024 Episodic Other lower respiratory disease (2 sources) Cough; Translations: [Acute cough] 02-26-2024 Episodic Other lower respiratory disease (1 source) Shortness of breath; Translations: [Shortness of breath] Onset: 02-15-2024 Episodic Other nervous system disorders (1 source) Paresthesia of hand ; Translations: [Anesthesia of skin] 09-30-2024 Episodic Other nutritional; endocrine; and metabolic disorders (1 source) Morbid (severe) obesity due to excess calories; Translations: [Morbid (severe) obesity due to excess calories] Onset: 11-29-2023 Chronic Other nutritional; endocrine; and metabolic disorders (2 sources) Severe obesity; Translations: [Morbid (severe) obesity due to excess calories] 04-08-2024 Chronic Other nutritional; endocrine; and metabolic disorders (1 source) Psychosomatic factor in physical condition; Translations: [Morbid (severe) obesity due to excess calories] 05-05-2024 Chronic Other nutritional; endocrine; and metabolic disorders (20 sources) Morbid obesity; Translations: [Morbid (severe) obesity due to excess calories] Onset: 05-07-2024 05-07-2024 Chronic Other screening for suspected conditions (not mental disorders or infectious disease) (1 source) CT of chest abnormal; Translations: [Abnormal findings on diagnostic imaging of other specified body structures] 02-26-2024 Chronic Other screening for suspected conditions (not mental disorders or infectious disease) (10 sources) Encounter for screening for cardiovascular disorders; Translations: [Patient encounter status] Onset: 11-29-2023 Episodic Other upper respiratory infections (1 source) Recurrent acute sinusitis; Translations: [Other acute recurrent sinusitis] 02-26-2024 Episodic Pneumonia (except that caused by tuberculosis or sexually transmitted disease) (2 sources) Pneumonia; Translations: [Pneumonia, unspecified organism] 02-11-2024 Episodic Residual codes; unclassified (20 sources) Obstructive sleep apnea syndrome; Translations: [Obstructive sleep apnea (adult) (pediatric)] Onset: 04-08-2024 02-26-2024 Chronic Retinal detachments; defects; vascular occlusion; and retinopathy (1 source) Retinal pigment epithelial abnormality; 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] 08-01-2024 Chronic Unclassified (1 source) NO SHOW 07-10-2024 Past or Other Problems Problem Classification Problem Date Documented Da te Episodic/Chronic Contraceptive and procreative management (20 sources) Intrauterine contraceptive device in situ; Translations: [Presence of (intrauterine) contraceptive device] Onset: 03-11-2024 03-11-2024 Episodic Other aftercare (1 source) MCC (current) use of insulin; Translations: [Controlled type 2 diabetes mellitus without complication, with long-term current use of insulin (HCC)] Onset: 03-11-2024 Episodic Other lower respiratory disease (20 sources) Multiple nodules of lung; Translations: [Other nonspecific abnormal finding of lung field] Onset: 03-11-2024 03-11-2024 Episodic Other nervous system disorders (17 sources) Numbness of hand; Translations: [Anesthesia of skin] Onset: 10-07-2024 10-07-2024 Episodic Other nervous system disorders (1 source) Anesthesia of skin; Translations: [Numbness of right hand] Onset: 10-07-2024 Episodic Phlebitis; thrombophlebitis and thromboembolism (20 sources) Thromboembolism of vein; Translations: [Acute embolism and thrombosis of unspecified vein] Onset: 05-07-2024 05-07-2024 Episodic Pulmonary heart disease (20 sources) Pulmonary embolism; Translations: [Other pulmonary embolism without acute cor pulmonale] Onset: 11-19-2020 04-08-2024 Episodic Unclassified (1 source) Patient encounter status 05-12-2025 Results Test Name Value Interpretation Reference Range Facility JUDIT SCREENING W [facility]on 08-31 JUDIT SCREENING [facility] * * *Final Report* * * DATE OF EXAM: Aug 31 2025 1:11PM [id number] - JUDIT SCREENING [facility] / PROCEDURE REASON: Encounter for screening mammogram for breast cancer * * * * Physician Interpretation * * * * RESULT: [place] [id number] #[id number] - [facility]IT SCREENING [facility] HISTORY: 44 year-old patient presents for screening. Patient is asymptomatic in both breasts. Patient states no personal history of breast cancer. COMPARISON STUDIES: The present examination has been compared to a prior imaging study dated 04/08/2024 (mammogram). MAMMOGRAM TECHNIQUE: The study was acquired using full field digital technology and interpreted from soft copy. Digital Breast Tomosynthesis (DBT) images were obtained and used to assist in the interpretation of this examination. MAMMOGRAM FINDINGS: The breasts are almost entirely fatty. No suspicious masses, calcifications or other abnormalities are seen in either breast. There are no significant interval changes. IMPRESSION: There is no mammographic evidence of malignancy in either breast. Routine screening mammogram is recommended. Annual mammogram will be due in 1 year. BI-RADS Category 1: Negative RISK: Based on the Tyrer-Cuzick (TC) risk assessment model, this patient has a 6.2% lifetime risk of developing breast cancer, meaning they are at average risk for developing breast cancer. However, this is only an estimate based on available history provided on the patient's questionnaire. We encourage all patients to talk with their providers about these results, further recommendations for managing breast health, and appropriate supplemental screening options if the patient has dense breast tissue. Interpreting Radiologist: Mauricio Wade M.D. Electronically signed on: 09/03/2025 Medical Scientific Liaison: RAYSA Transcribe Date/Time: Aug 31 2025 12:57P Dictated by: MAURICIO WADE MD This examination was interpreted and the report reviewed and electronically signed by: MAURICIO WADE MD on Sep 03 2025 1:17PM EST [id number] Normal [facility] CNOVon 08-29-2025 CNOV Office Visit ([facility]) TOMMIEAG KRISHNANCHARITO Alexander ([id number]) 1980 F Date Time Provider Department 08/29/25 1:00 PM JOSESITO RIZZO During your visit today, we recorded the following information about you: Temperature Pulse Respiration Blood pressure 97.9 degrees 72/minute 21/minute 130/74 Weight 189.2 kg Josesito Rizzo APRN.OUTSIDE PROPERTY AGENT 08/29/2025 2:56 PM Signed [facility] HUEYROXY Araizataty is a 44 year old female. Patient presents with: Pain (foot): Left heel pain x 2 weeks HPI Nontoxic-appearing 44-year-old female presents urgent care chief complaint left heel pain. Duration of symptoms 2 weeks. Associated symptoms ongoing left heel pain. Presents today for evaluation. OTC medications none. No recent trauma. No new numbness or tingling. Is a diabetic states she does have some present neuropathy. No surgeries fractures previously. Past medical history prescription medications allergies reviewed Review of Systems Constitutional: Negative for activity change, diaphoresis, fatigue and fever. Musculoskeletal: Negative for arthralgias, back pain, gait problem, joint swelling, myalgias, neck pain and neck stiffness. Skin: Negative for pallor, rash and wound. Neurological: Negative for dizziness, seizures, syncope, weakness, light-headedness, numbness and headaches. Psychiatric/Behavioral : Negative for confusion. Objective BP 130/74 Pulse 72 Temp 36.6 ?C (97.9 ?F) Resp 21 Wt (!) 189.2 kg (417 lb 1.8 oz) SpO2 95% BMI 66.31 kg/m? Physical Exam Constitutional: Appearance: Normal appearance. She is normal weight. HENT: Head: Normocephalic. Eyes: Conjunctiva/sclera: Conjunctivae normal. Cardiovascular: Rate and Rhythm: Normal rate. Pulmonary: Effort: Pulmonary effort is normal. Musculoskeletal: Cervical back: Normal range of motion. Left ankle: No swelling, deformity, ecchymosis or lacerations. No tenderness. Normal range of motion. Anterior drawer test negative. Left Achilles Tendon: Tenderness present. Left foot: Normal range of motion and normal capillary refill. Tenderness present. No swelling, deformity, bunion, Charcot foot, laceration or bony tenderness. Normal pulse. Skin: Findings: No rash. Neurological: General: No focal deficit present. Mental Status: She is alert and oriented to person, place, and time. Mental status is at baseline. {ASSESSMENT/PLAN: 1. Foot pain, left - ICD9: 729.5, ICD10: M79.672 - XR FOOT GENERAL 3V AP/LAT/OBL LEFT IMPRESSION: Calcaneal enthesophyte. No acute findings noted. Heel spur noted. Referred to podiatry. Patient was educated on supportive therapies. Patient will follow up with primary care provider as needed. Patient was instructed to immediately proceed to emergency room for any new, worsening, or symptoms lasting longer than anticipated. The patient's clinical presentation is otherwise unremarkable at this time. Based on exam and clinical finding, the patient is stable for discharge. Plan of care was discussed with patient. Patient verbalizes understanding and agrees to plan of care. This note was generated using Immy software. It may contain errors in wording, punctuation, or spelling. Josesito Rizzo APRN.OUTSIDE PROPERTY AGENT History and Record Review Clinical information obtained from an independent historian. History obtained from or confirmed by: parent. External record(s) reviewed: prior outpatient record. Disposition The patient was discharged. Procedures Allergies As of Date: 08/29/2025 Noted Allergy Reaction CLARITIN (LORATADINE) 02/26/2024 14 - Other: See Comments Comments: Lymph nodes swell Date Reviewed: 08/29/2025 Reviewed by: Josesito Rizzo APRN.OUTSIDE PROPERTY AGENT - Fully Assessed Reason for Visit: Pain (foot) [760] Cmt: Left heel pain x 2 weeks Primary Visit Diagnosis:Foot pain, left [M79.672] Order(s):XR FOOT GENERAL 3V AP/LAT/OBL LEFT [0804752] Order #: [id number] FUTURE CONSULT TO PODIATRY [9034] Order #: [id number]: 1 FUTURE Prescriptions as of 08/29/2025 - ergocalciferol 50,000 unit capsule (VITAMIN D2, DRISDOL) Take 1 capsule by mouth once a week - carvedilol (COREG) 6.25 mg tablet TAKE 1 TABLET BY MOUTH EVERY 12 HOURS - furosemide (LASIX) 20 mg tablet TAKE 1 TABLET BY MOUTH ONCE DAILY EVERY AFTERNOON - lisinopril (ZESTRIL) 10 mg tablet TAKE 1 TABLET BY MOUTH EVERY 12 HOURS - metFORMIN (GLUCOPHAGE) 500 mg tablet TAKE 1 TABLET BY MOUTH EVERY 12 HOURS - insulin glargine-yfgn (SEMGLEE) 100 unit/mL (3 mL) insulin pen Inject 15 Units subcutaneously daily at bedtime. - insulin aspart U-100 (NOVOLOG FLEXPEN U-100 INSULIN) 100 unit/mL (3 mL) INJECT 3 UNITS AT EACH MEAL PLUS 1 UNIT FOR EVERY 20 MG /DL OVER 100 ON GLUCOMETER. MAX DAILY USE 40 UNITS PER DAY - Blood-Glucose Meter,Continuous (DEXCOM G6 PATHOLOGY LABORATORY DIRECTOR) misc USE TO CHECK BLOOD SUGAR AT LEAST 4 TIMES DA (more content not included)... Normal [facility] XR FOOT 3V AP/LAT/OBL LTon 1 XR FOOT 3V AP/LAT/OBL LT * * *Final Repo rt* * * DATE OF EXAM: Aug 29 2025 1:27PM WOX [id number] - XR FOOT 3V AP/LAT/OBL LT / PROCEDURE REASON: Foot pain, left * * * * Physician Interpretation * * * * EXAM TITLE: XR FOOT 3V AP/LAT/OBL LT EXAM DATE/TIME: 08/29/2025 1:27 PM COMPARISON: None. CLINICAL INDICATION/HISTORY: Worsening heel pain. TECHNIQUE: AP, lateral and oblique views of the left foot are presented. FINDINGS: No fractures or subluxations are noted. Calcaneal enthesophyte is present. There is borderline Bunion deformity. The joint spaces are well preserved. The mineralization of the bones is normal. There is no significant soft tissue swelling.. IMPRESSION: Calcaneal enthesophyte. Medical Scientific Liaison: JESSICA Transcribe Date/Time: Aug 29 2025 2:50P Dictated by : SHUKRI CELAYA MD This examination was interpreted and the report reviewed and electronically signed by: SHUKRI CELAYA MD on Aug 29 2025 2:52PM EST [id number] Normal [facility] C[facility] Telephone (AGFAMPLE) CYNTHIA BLANCO ([id number]) 1980 F Date Time Provider Department 01/05/25 DONNA WILLIAM During your visit today, we recorded the following information about you: Lorraine Olea MA 01/05/2025 1:17 PM Signed [facility] lm on stating they need you to remove dispense as written on novolog flex pen. They said it will be cheaper for patient to get generic. KAYCE Sarabia Kristin C, TRANSPORTATION COORDINATOR.[facility] 01/05/2025 1:19 PM Signed New Rx sent Allergies As of Date: 01/05/2025 Noted Allergy Reaction CLARITIN (LORATADINE) 02/26/2024 14 - Other: See Comments Comments: Lymph nodes swell Date Reviewed: 10/07/2024 Reviewed by: Lorraine Olea MA - Fully Assessed Reason for Visit: Medication Problem [65] Cmt: Needs dispense as written taken off Visit Diagnosis:Controlled type 2 diabetes mellitus without complication, with long-term current use of insulin (HCC) [E11.9, Z79.4] Order(s):insulin aspart U-100 (NOVOLOG FLEXPEN U-100 INSULIN) 100 unit/mL (3 mL)INJECT 3 UNITS AT EACH MEAL PLUS 1 UNIT FOR EVERY 20 MG /DL OVER 100 ON GLUCOMETER. MAX DAILY USE 40 UNITS PER DAYDisp: 36 mLRfl: 1 Prescriptions as of 01/05/2025 - insulin aspart U-100 (NOVOLOG FLEXPEN U-100 INSULIN) 100 unit/mL (3 mL) INJECT 3 UNITS AT EACH MEAL PLUS 1 UNIT FOR EVERY 20 MG /DL OVER 100 ON GLUCOMETER. MAX DAILY USE 40 UNITS PER DAY - insulin glargine (LANTUS) 100 unit/mL injection Inject 15 Units subcutaneously daily at bedtime. - Blood-Glucose Meter,Continuous (DEXCOM G6 PATHOLOGY LABORATORY DIRECTOR) [facility] USE TO CHECK BLOOD SUGAR AT LEAST 4 TIMES DAILY - atorvastatin (LIPITOR) 20 mg tablet Take 1 tablet by mouth daily at bedtime. - potassium chloride (K-TAB) 10 mEq tablet Take 1 tablet by mouth every afternoon. - metFORMIN (GLUCOPHAGE) 500 mg tablet TAKE 1 TABLET BY MOUTH EVERY 12 HOURS - furosemide (LASIX) 20 mg tablet TAKE ONE TABLET BY MOUTH EVERY AFTERNOON - carvedilol (COREG) 6.25 mg tablet TAKE 1 TABLET BY MOUTH EVERY 12 HOURS - lisinopril (ZESTRIL) 10 mg tablet TAKE 1 TABLET BY MOUTH EVERY 12 HOURS - Blood-Glucose Transmitter (DEXCOM G6 TRANSMITTER) mesfin Apply new transmitter every 90 days. Clean transmitter with an alcohol swab with each sensor change. - Blood-Glucose Sensor (DEXCOM G6 SENSOR) mesfin Apply new sensor every ten (10) days to abdomen. - ergocalciferol 50,000 unit capsule (VITAMIN D2, DRISDOL) Take 1 capsule by mouth one time a week. - VITAMIN D-3 10 mcg (400 unit) tab Take 2 capsules by mouth every afternoon. - levonorgestrel (MIRENA) 21 mcg/24 hr (8 yrs) 52 mg IUD 1 Each by INTRAUTERINE route one time only. - Cholecalciferol, Vitamin D3, (VITAMIN D-3) 50 mcg (2,000 unit) cap Take 2 capsules by mouth once daily. - insulin needles, DISPOSABLE, (LITE TOUCH INSULIN PEN NEEDLES) 31 gauge x 5/16 1 Each five times a day. - blood sugar diagnostic (BLOOD GLUCOSE TEST) test strip 1 Strip five times a day. Use as instructed - Insulin [place], Disposable, 32 gauge x 5/32 four times daily. USE DIRECTED. Problem List As Of Date 01/05/2025 Noted Resolved Controlled type 2 diabetes mellitus without com*03/11/2024 IUD (intrauterine device) in place [Z97.5] 03/11/2024 Lung nodules [R91.8] 03/11/2024 Primary hypertension [I10] 03/11/2024 Obstructive sleep apnea [G47.33] 04/08/2024 Pulmonary embolism (HCC) [I26.99] 2020 Morbid obesity (HCC) [E66.01] 05/07/2024 Dyslipidemia [E78.5] 05/07/2024 VTE (venous thromboembolism) [I82.90] 05/07/2024 Numbness of right hand [R20.0] 10/07/2024 Prescriptions ordered this encounter Disp Refills Start End INSULIN ASPART (U-100) 100 UNIT/ML (* 36 mL 1 01/05/2025 Sig: INJECT 3 UNITS AT EACH MEAL PLUS 1 UNIT FOR EVERY 20 MG /DL OVER 100 ON GLUCOMETER. MAX DAILY USE 40 UNITS PER DAY Medications Discontinued During This Encounter Prescriptions - NOVOLOG FLEXPEN U-100 INSULIN 100 unit/mL (3 mL) (Discontinued) INJECT 3 UNITS AT EACH MEAL PLUS 1 UNIT FOR EVERY 20 MG /DL OVER 100 ON GLUCOMETER. MAX DAILY USE 40 UNITS PER DAY Encounter Status:Closed by LORRAINE OLEA on 01/05/25 [facility] 10-07-2024 [facility] Office Visit (AHSANMPLE) CYNTHIA BLANCO ([id number]) 1980 F Date Time Provider Department 10/07/24 8:40 AM DONNA WILLIAM During your visit today, we recorded the following information about you: Temperature Pulse Blood pressure Weight 98.3 degrees 70/minute 143/93 191 kg Height 1.689 m Donna William, TRANSPORTATION COORDINATOR.OUTSIDE PROPERTY AGENT 10/07/2024 9:07 AM Signed Subjective Cynthia Araizag is a 43 year old female here today for right hand numbness follow-up. I reviewed past medical, surgical, social, and family histories today and updated chart. Allergies, chronic medications, and supplements were also reviewed. HPI Her EMG was cancelled because there wasn't a doctor available that day She needs to reschedule it Right hand - middle and ring fingers completely numb and pinky is also getting numb She has previous hand injury about 20 years ago - diagnosed with tendonitis Right hand cramps up and makes a tight fist and cannot open the hand up Middle finger will get stuck or become distorted. This morning had pain in the right index finger that radiates up the arm She is wondering if she may have pinched shoulder She saw the neurology [employer] OPERATOR Chelsea Ricks on 09/30/24 - had all the sensation testing done and she could feel the needle prick. Recommended wrist brace. She checked with her insurance and they will cover a CGM - MediCard [place] or Dexcom G6 PAST MEDICAL HISTORY Diagnosis Date Lung nodules Obstructive sleep apnea Optic disc pallor, bilateral 1995 Previous hx of IIH Primary hypertension PTSD (post-traumatic stress disorder) Pulmonary embolism (HCC) 2020 Type 2 diabetes (HCC) PAST SURGICAL HISTORY Procedure Laterality Date HYSTEROSCOPY, DIAGNOSTIC (SEPARATE 12/2022 iud inserted when there was no prior IUD found INSERTION OF IUD 12/2022 MIrena TONSILLECTOMY HX 1989 ALLERGIES Claritin [Loratadine] MEDICATIONS ergocalciferol 50,000 unit capsule (VITAMIN D2, DRISDOL) Take 1 capsule by mouth one time a week. NOVOLOG FLEXPEN U-100 INSULIN 100 unit/mL (3 mL) INJECT 3 UNITS AT EACH MEAL PLUS 1 UNIT FOR EVERY 20 MG /DL OVER 100 ON GLUCOMETER. MAX DAILY USE 40 UNITS PER DAY LANTUS SOLOSTAR U-100 INSULIN 100 unit/mL (3 mL) Inject 15 Units subcutaneously two times a day. atorvastatin (LIPITOR) 20 mg tablet Take 1 tablet by mouth daily at bedtime. carvedilol (COREG) 6.25 mg tablet Take 1 tablet by mouth every 12 hours. furosemide (LASIX) 20 mg tablet Take 1 tablet by mouth every afternoon. lisinopril (ZESTRIL) 10 mg tablet Take 1 tablet by mouth every 12 hours. metFORMIN (GLUCOPHAGE) 500 mg tablet Take 1 tablet by mouth every 12 hours. potassium chloride (K-TAB) 10 mEq tablet Take 1 tablet by mouth every afternoon. VITAMIN D-3 10 mcg (400 unit) tab Take 2 capsules by mouth every afternoon. levonorgestrel (MIRENA) 21 mcg/24 hr (8 yrs) 52 mg IUD 1 Each by INTRAUTERINE route one time only. Cholecalciferol, Vitamin D3, (VITAMIN D-3) 50 mcg (2,000 unit) cap Take 2 capsules by mouth once daily. insulin needles, DISPOSABLE, (LITE TOUCH INSULIN PEN NEEDLES) 31 gauge x 5/16 1 Each five times a day. blood sugar diagnostic (BLOOD GLUCOSE TEST) test strip 1 Strip five times a day. Use as instructed Insulin [place], Disposable, 32 gauge x 5/32 four times daily. USE DIRECTED. FAMILY HISTORY Problem Relation Age of Onset Diabetes Father Macular Degen Paternal Aunt Diabetes Paternal Aunt great Drug abuse Half-sister No Ocular Disease No Family History Social History Tobacco Use Smoking status: Never Smokeless tobacco: Never Vaping Use Vaping status: Former Substances: Nicotine Devices: Pre-filled or refillable cartridge Substance Use Topics Alcohol use: Yes Comment: occ Drug use: Never Review of Systems Constitutional: Negative for appetite change, chills, fatigue, fever and unexpected weight change. HENT: Negative for congestion, ear pain, rhinorrhea and sore throat. Eyes: Negative for pain, discharge, itching and visual disturbance. Respiratory: Negative for cough, shortness of breath and wheezing. Cardiovascular: Negative for chest pain, palpitations and leg swelling. Gastrointestinal: Negative for abdominal pain, constipation, diarrhea, nausea and vomiting. Genitourinary: Negative for difficulty urinating. Musculoskeletal: Positive for arthralgias. Skin: Negative for rash. Neurological: Positive for weakness and numbness. Negative for dizziness, tremors and headaches. Psychiatric/Behavioral : Negative for dysphoric mood and sleep disturbance. The patient is not nervous/anxious. Objective BP 143/93 Pulse 70 Temp 98.3 Ht 5' 6.5 (1.69m) Wt 421 lb (191.0kg) SpO2 97% BMI 66.94 kg/(m2). Physical Exam Constitutional: General: She is not in acute distress. Appearance: Normal appearance. HENT: Head: Normocephalic and (more content not included)... Normal [facility] CNOVon 11-12-2024 CNOV Office Visit (ERIKA ) CYNTHIA BLANCO ([id number]) 1980 F Date Time Provider Department 09/30/24 9:30 AM CHELSEA RICKS During your visit today, we recorded the following information about you: Pulse Blood pressure 70/minute 122/78 Chelsea Ricks APRN.CNP 09/30/2024 9:38 AM Addendum - EMG - Hard wrist brace nightly Chelsea Ricks APRN.CNP 09/30/2024 10:05 AM Signed [facility] for General Neurology Name: Cynthia Blanco Age: [age] year old Gender: female Primary Care Provider: Donna William APRN.OUTSIDE PROPERTY AGENT Consult requested for right hand numbness by Self. Recommendations will be communicated via shared medical record or US mail. Chief Complaint:New Patient 09/30/2024 - General NeurologyChelsea APRN.OUTSIDE PROPERTY AGENT ASSESSMENT Patient presents today for complaints of right hand numbness and tingling that is constant throughout the day. Symptom onset a little over a year ago. Patient endorses a sharp pain that radiates up in to the forearm, particularly when she sleeps on her right side. Patient is being treated for her type 2 diabetes with oral medications and insulin regimen. Patient was able to get her HgbA1C down from 10 to 6.4 but denies any improvements in her symptoms. Patient denies any neck or back pain. Not currently on medications for symptom management. Wore wrist brace once during day, hindered mobility too much. Patient neurological exam was overall normal today. Patient positive for Phalen's test in right hand. Patient was educated on the importance of wearing wrist brace at night as opposed to during the day at work. Patient will schedule EMG today and will follow up with results. PLAN - EMG - Hard wrist brace nightly, Patient was given brace at this visit. Encounter Diagnosis ICD-10-CM 1. Numbness and tingling in right hand R20.0 R20.2 2. Pain in right hand M79.641 Return if symptoms worsen or fail to improve. Chart, labs,and relevant images reviewed. HPI: This is a 43 year old female presenting with right hand numbness, history of lung nodules, JOSE ENRIQUE, HTN, PTSD, pulmonary embolism, type 2 DM. The numbness of tingling started two years ago, but progressively worsening since moving in June of 2023. Moved with boyfriend. Numbness and tingling throughout the whole right hand, also endorses numbness of left hand in just the fingertips. Numbness on the right hand starts in the fingertips states she has barely any strength even sometimes cannot open a pop bottle. Patient states she is having more decrease in ability to do her work. The numbness and tingling is constant nothing makes it worse or better. Numbness/tingling and sharp pain can radiate up in to the forearm, mostly occurs when laying on her right side. She has been managing her type 2 diabetes and has controlled her A1c from 10 down to 6.4 with no improvement in symptoms. States she tried a brace for her wrist at one time but found it difficult for work as she was only wearing it during the day. Hemoglobin A1C 6.4. B12 360, folate 4.1. EMG ordered, not yet completed. Neck pain? No Balance/dizziness? No Weakness? Yes, in the right hand. Denies weakness in all other limbs. Bladder/stool incontinence? No Headaches? No Visual change? No Numbness/tingling any other limbs? No. Review of Systems Constitutional: Negative. HENT: Negative. Eyes: Negative. Respiratory: Negative. Gastrointestinal: Negative. Neurological: Positive for weakness and numbness. In right handed. Noted numbness in left fingertips. ACTIVE PROBLEM LIST Controlled Type 2 Diabetes Mellitus Without Complication, With Long-Term Current Use of Insulin (Hcc) IUD (Intrauterine Device) in Place Lung Nodules Primary Hypertension Obstructive Sleep Apnea Pulmonary Embolism (Hcc) Morbid Obesity (Hcc) Dyslipidemia Vte (Venous Thromboembolism) PAST MEDICAL HISTORY Diagnosis Date Lung nodules Obstructive sleep apnea Optic disc pallor, bilateral 1995 Previous hx of IIH Primary hypertension PTSD (post-traumatic stress disorder) Pulmonary embolism (HCC) 2020 Type 2 diabetes (HCC) Medications: Reviewed ergocalciferol 50,000 unit capsule (VITAMIN D2, DRISDOL) Take 1 capsule by mouth one time a week. NOVOLOG FLEXPEN U-100 INSULIN 100 unit/mL (3 mL) INJECT 3 UNITS AT EACH MEAL PLUS 1 UNIT FOR EVERY 20 MG /DL OVER 100 ON GLUCOMETER. MAX DAILY USE 40 UNITS PER DAY LANTUS SOLOSTAR U-100 INSULIN 100 unit/mL (3 mL) Inject 15 Units subcutaneously two times a day. atorvastatin (LIPITOR) 20 mg tablet Take 1 tablet by mouth daily at bedtime. carvedilol (COREG) 6.25 mg tablet Take 1 tablet by mouth every 12 hours. furosemide (LASIX) 20 mg tablet Take 1 tablet by mouth every afternoon. lisinopril (ZESTRIL) 10 mg tablet Take 1 tablet by mouth every 12 hours. metFORMIN (GLUCOPHAGE) 500 mg (more content not included)... [facility] [place] (NISA) CYNTHIA BLANCO ([id number]) 1980 F Date Time Provider Department 09/25/24 DONNA WILLIAM During your visit today, we recorded the following information about you: Andres Eaton MA 09/25/2024 4:33 PM Signed ----- Message from Donna William APRN.OUTSIDE PROPERTY AGENT sent at 09/25/2024 11:56 AM EST ----- Please notify patient results are normal. Thank you. Donna William APRN.Andres Srinivasan MA 09/25/2024 4:34 PM Signed Left message requesting patient call back for urine microalbumin results. [facility] also sent. KAYCE Lancaster Mary, MA 09/26/2024 8:22 AM Signed Patient received her my chart message. Lorraine Olea MA Allergies As of Date: 09/25/2024 Noted Allergy Reaction CLARITIN (LORATADINE) 02/26/2024 14 - Other: See Comments Comments: Lymph nodes swell Date Reviewed: 08/01/2024 Reviewed by: Gabriela Jones OA - Fully Assessed Reason for Visit: Results [95] Prescriptions as of 09/26/2024 - ergocalciferol 50,000 unit capsule (VITAMIN D2, DRISDOL) Take 1 capsule by mouth one time a week. - NOVOLOG FLEXPEN U-100 INSULIN 100 unit/mL (3 mL) INJECT 3 UNITS AT EACH MEAL PLUS 1 UNIT FOR EVERY 20 MG /DL OVER 100 ON GLUCOMETER. MAX DAILY USE 40 UNITS PER DAY - LANTUS SOLOSTAR U-100 INSULIN 100 unit/mL (3 mL) Inject 15 Units subcutaneously two times a day. - atorvastatin (LIPITOR) 20 mg tablet Take 1 tablet by mouth daily at bedtime. - carvedilol (COREG) 6.25 mg tablet Take 1 tablet by mouth every 12 hours. - furosemide (LASIX) 20 mg tablet Take 1 tablet by mouth every afternoon. - lisinopril (ZESTRIL) 10 mg tablet Take 1 tablet by mouth every 12 hours. - metFORMIN (GLUCOPHAGE) 500 mg tablet Take 1 tablet by mouth every 12 hours. - potassium chloride (K-TAB) 10 mEq tablet Take 1 tablet by mouth every afternoon. - VITAMIN D-3 10 mcg (400 unit) tab Take 2 capsules by mouth every afternoon. - levonorgestrel (MIRENA) 21 mcg/24 hr (8 yrs) 52 mg IUD 1 Each by INTRAUTERINE route one time only. - Cholecalciferol, Vitamin D3, (VITAMIN D-3) 50 mcg (2,000 unit) cap Take 2 capsules by mouth once daily. - insulin needles, DISPOSABLE, (LITE TOUCH INSULIN PEN NEEDLES) 31 gauge x 5/16 1 Each five times a day. - blood sugar diagnostic (BLOOD GLUCOSE TEST) test strip 1 Strip five times a day. Use as instructed - Insulin [place], Disposable, 32 gauge x 5/32 four times daily. USE DIRECTED. Problem List As Of Date 09/25/2024 Noted Resolved Controlled type 2 diabetes mellitus without com*03/11/2024 IUD (intrauterine device) in place [Z97.5] 03/11/2024 Lung nodules [R91.8] 03/11/2024 Primary hypertension [I10] 03/11/2024 Obstructive sleep apnea [G47.33] 04/08/2024 Pulmonary embolism (HCC) [I26.99] 2020 Morbid obesity (HCC) [E66.01] 05/07/2024 Dyslipidemia [E78.5] 05/07/2024 VTE (venous thromboembolism) [I82.90] 05/07/2024 Encounter Status:Closed by ANDRES EATON on 09/25/24 Normal [facility] ALBUMIN/CREATININE RATIO, UR AJNINEon 09-24-2024 Albumin DL <= 20 mg/L (U) [Mass/Vol] 15.4 mg/L Normal [facility] Comment on above: Order Comment: Speci men Type: URINE SPECIMEN Ordering Facility: [facility] Address: [address] [place] [address] Performed By: #### U ACR #### [facility] CLIA [id number] [address] [place] [address] [place] Albumin/Creatinine (U) [Mass ratio] 17 mg/g Normal <30 [facility] Comment on above: Order Comment: James colin Type: URINE SPECIMEN Ordering Facility: [facility] Address: [address] [place] [address] Result Comment: Adul t Male and Female Nephrotic Criteria: <30 mg/g is considered normal to mildly increased 30-300 mg/g is considered moderately increased >300 mg/g is considered severely increased KDIGO. (2013). KDIGO 2012 Clinical Practice Guideline for the Evaluation and Management of Chronic Kidney Disease. Official Journal of the International Society of Nephrology, 3(1), 1-150. Performed By: #### U ACR #### [facility] CLIA [id number] [address] [place] [address] [place] Creatinine (U) [Mass/Vol] 90.7 mg/dL Normal 20.0-300.0 [facility] Comment on above: Order Comment: Titii men Type: URINE SPECIMEN Ordering Facility: [facility] Address: [address] [place] [address] Performed By: #### U ACR #### [facility] CLIA [id number] [address] [place] [address] [place] CNPCorin 09-18-2024 CNPN Telephone (AGFAMPLE) CYNTHIA BLANCO ([id number]) 1980 F Date Time Provider Department 09/18/24 DONNA WILLIAM During your visit today, we recorded the following information about you: Andres Eatno MA 09/18/2024 7:56 AM Signed ----- Message from Lorraine Dailey MA sent at 06/18/2024 8:16 AM EDT ----- Remind pt. Time to recheck urine micral. KAYCE Sarabia Mary, MA 09/19/2024 8:42 AM Signed Lm on pt. Vm with all information. Lorraine Olea MA Allergies As of Date: 09/18/2024 Noted Allergy Reaction CLARITIN (LORATADINE) 02/26/2024 14 - Other: See Comments Comments: Lymph nodes swell Date Reviewed: 08/01/2024 Reviewed by: Gabriela Jones OA - Fully Assessed Reason for Visit: Lab Orders [[id number]] Primary Visit Diagnosis:Controlled type 2 diabetes mellitus without complication, with long-term current use of insulin (HCC) [E11.9, Z79.4] Order(s):ALBUMIN/CREAT ININE RATIO, URINE [SQUACR] Order #: [id number] FUTURE Prescriptions as of 09/19/2024 - ergocalciferol 50,000 unit capsule (VITAMIN D2, DRISDOL) Take 1 capsule by mouth one time a week. - NOVOLOG FLEXPEN U-100 INSULIN 100 unit/mL (3 mL) INJECT 3 UNITS AT EACH MEAL PLUS 1 UNIT FOR EVERY 20 MG /DL OVER 100 ON GLUCOMETER. MAX DAILY USE 40 UNITS PER DAY - LANTUS SOLOSTAR U-100 INSULIN 100 unit/mL (3 mL) Inject 15 Units subcutaneously two times a day. - atorvastatin (LIPITOR) 20 mg tablet Take 1 tablet by mouth daily at bedtime. - carvedilol (COREG) 6.25 mg tablet Take 1 tablet by mouth every 12 hours. - furosemide (LASIX) 20 mg tablet Take 1 tablet by mouth every afternoon. - lisinopril (ZESTRIL) 10 mg tablet Take 1 tablet by mouth every 12 hours. - metFORMIN (GLUCOPHAGE) 500 mg tablet Take 1 tablet by mouth every 12 hours. - potassium chloride (K-TAB) 10 mEq tablet Take 1 tablet by mouth every afternoon. - VITAMIN D-3 10 mcg (400 unit) tab Take 2 capsules by mouth every afternoon. - levonorgestrel (MIRENA) 21 mcg/24 hr (8 yrs) 52 mg IUD 1 Each by INTRAUTERINE route one time only. - Cholecalciferol, Vitamin D3, (VITAMIN D-3) 50 mcg (2,000 unit) cap Take 2 capsules by mouth once daily. - insulin needles, DISPOSABLE, (LITE TOUCH INSULIN PEN NEEDLES) 31 gauge x 5/16 1 Each five times a day. - blood sugar diagnostic (BLOOD GLUCOSE TEST) test strip 1 Strip five times a day. Use as instructed - Insulin [place], Disposable, 32 gauge x 5/32 four times daily. USE DIRECTED. Problem List As Of Date 09/18/2024 Noted Resolved Controlled type 2 diabetes mellitus without com*03/11/2024 IUD (intrauterine device) in place [Z97.5] 03/11/2024 Lung nodules [R91.8] 03/11/2024 Primary hypertension [I10] 03/11/2024 Obstructive sleep apnea [G47.33] 04/08/2024 Pulmonary embolism (HCC) [I26.99] 2020 Morbid obesity (HCC) [E66.01] 05/07/2024 Dyslipidemia [E78.5] 05/07/2024 VTE (venous thromboembolism) [I82.90] 05/07/2024 Encounter Status:Closed by LORRAINE OLEA on 09/19/24 [facility] OCT MACULA CIRRUS OU (BOTH E YES)on 08-01-2024 [facility] Radiology Study observation (narrative) [facility] OCT OPTIC NERVE CIRRUS OU (B OTH EYES)on 08-01-2024 [facility] Radiology Study observation (narrative) [facility] ALBUMIN/CREATININE RATIO, UR INEon 06-14-2024 Albumin Unsp time DL <= 20 mg/L (U) [Mass/Time] 18.1 mg/L [facility] Albumin/Creatinine (U) [Mass ratio] 65 mg/g High NINF - 30 mg/g [facility] Comment on above: Not calculated Adult Male and Female Nephrotic Criteria: <30 mg/g is considered normal to mildly increased 30-300 mg/g is considered moderately increased >300 mg/g is considered severely increased KDIGO. (2013). KDIGO 2012 Clinical Practice Guideline for the Evaluation and Management of Chronic Kidney Disease. Official Journal of the International Society of Nephrology, 3(1), 1-150. Creatinine (U) [Mass/Vol] 27.8 mg/dL Low 42.2 - 237.9 mg/dL [facility] Interpretation and review of laboratory results Abnormal [facility] 12 Lead EKGon 02-24-2024 12 Lead EKG [facility] Cardiovascular Services [address] [place] [address] 12 Lead EKG 02/23/24 2248 MR#: [id number] Acct: [id number] Name: CYNTHIA BLANCO ELSI Rep #: [id number] : 1980 43 From: Aries Christian MD Attending Dr: Status: DEP ER Ordering Dr: Tiago Thompson MD Date: 02/23/24 Location: ED Sex: F C Admitted: Test Reason : CP Blood Pressure : / mmHG Vent. Rate : 078 BPM Atrial Rate : 078 BPM P-R Int : 142 ms QRS Dur : 080 ms QT Int : 372 ms P-R-T Axes : 004 019 022 degrees QTc Int : 424 ms Normal sinus rhythm Normal ECG Confirmed by Aries Christian ([id number]), development editor STEPHANY DAY ([id number]) on 02/25/2024 10:54:12 AM Referred By: DELLA Confirmed By:Aries Christian 02/25/24 1054 Date Aries Christian MD CC: Dr. Tiago Thompson MD; No Primary Care Physician Signed Normal [facility] Chest PA and Lateralon 02-23 Chest PA and Lateral [facility] Imaging Services [address] [place] [address] Chest PA and Lateral MR#: [id number] Acct: [id number] Name: CYNTHIA BLANCO Rep #: [id number] : 1980 F 43 From: Daniela Mayfield PCP: Care Physician,No Primary Status: REG ER Study: Chest PA and Lateral Date of Exam: 02/23/24 Exam# [id number] Ordering Dr: Tiago Thompson [place] [id number] INDICATION: cough, sob, brief R CP EXAMINATION/TECHNIQUE: X-RAY - XR Chest 2 Views COMPARISON: No relevant prior comparison study available FINDINGS: LINES/DEVICES: None. LUNGS: No consolidation, edema or effusion. No pneumothorax. MEDIASTINUM AND CARDIOVASCULAR STRUCTURES: Cardiac silhouette not enlarged. Central airways and mediastinal contour are unremarkable. BONES AND SOFT TISSUES: Unremarkable. RAD/Chest PA and Lateral IMPRESSION: No radiographic evidence of acute cardiopulmonary disease. Electronically Signed: Daniela Thomason MD at 23:37 EDT Reading Location ID and State: [facility] / [place] Tel , Service support , CC: Dr. Tiago Thompson MD; No Primary Care Physician Medical Scientific Liaison: Signed Normal [facility] Chest without Contraston Chest without Contrast [facility] Imaging Services [address] [place] [address] Chest without Contrast MR#: [id number] Acct: [id number] Name: CYNTHIA BLANCO ELSI Rep #: [id number] : 1980 F 43 From: Daniela Mayfield PCP: Care Physician,No Primary Status: REG ER Study: Chest without Contrast Date of Exam: 02/24/24 Exam# [id number] Ordering Dr: Tiago Thompson MD [id number] INDICATION: sob, R chest pain, cough EXAMINATION: CT CHEST WITHOUT CONTRAST - CT Chest W/O Contrast Injection TECHNIQUE: Helically acquired images were obtained of the chest. A radiation dose optimization technique was used for this scan. IV Contrast dosage and agent: None. RADIATION DOSAGE (If Supplied By Facility): CTDIvol = ( 20.15 ) mGy, DLP = ( 669.60 ) mGycm COMPARISON: 02/11/2024 FINDINGS: LUNGS, PLEURA AND LARGE AIRWAYS: Ill-defined groundglass opacities are seen in the right lower lobe may represent pneumonia there are slightly more prominent when compared to the previous study. Multiple bilateral lung nodules are also noted have nonspecific appearance, the largest measures approximately 8 mm is in the superior segment of the right lower lobe, axial image 48, series 4. A short-term follow-up in 6 months is recommended to exclude a neoplastic process THYROID: No thyroid lesions. HEART AND PERICARDIUM: Heart size is normal. No pericardial effusion. CORONARY ARTERIES: Coronary artery calcification VESSELS: Thoracic aorta is not dilated. MEDIASTINUM AND POOJA: No mediastinal or hilar adenopathy. Esophagus is unremarkable. No hiatal hernia. UPPER ABDOMEN: No acute pathology. BONES: No suspicious lytic or blastic abnormality. CT/Chest without Contrast IMPRESSION: Ill-defined groundglass opacities are seen in the right lower lobe may represent pneumonia there are slightly more prominent when compared to the previous study. Multiple bilateral lung nodules are also noted have nonspecific appearance, the largest measures approximately 8 mm is in the superior segment of the right lower lobe, axial image 48, series 4. A short-term follow-up in 6 months is recommended to exclude a neoplastic process Electronically Signed: Daniela Thomason MD at 2:18 EDT Reading Location ID and State: [facility] / [place] Tel , Service support , CC: Dr. Tiago Thompson MD; No Primary Care Physician Medical Scientific Liaison: Signed Normal [facility] D-Dimer Quantitative (DVT/PE )on 02-24-2024 D-DIMER QUANT 0.79 FEU/ug/m Invalid Interpretation Code 0.27-0.49 [facility] Comment on above: Result Comment: D-Di rory ELEVATED (>0.49): Additional studies and clinical assessments are indicated to conclude diagnosis of: Deep Vein Thrombosis (DVT) or Pulmonary Embolism (PE) CRITICAL VALUE VERIFIED. CALLED TO LSPARR 02/23/24 2342 Stephany Coto. RESULTS READ BACK BY SAME. Performed By: #### L 300.8000 #### [facility] [address] [facility] [place], [address] Emergency Department Summary on 02-24-2024 Emergency Department Summary [facility] Medical Records Department [address] [address] Emergency Department Summary 02/23/24 MR#: [id number] Acct: [id number] Name: CYNTHIA BLANCO ELSI Rep #: [id number] : 1980 43 From: Tiago Thompson MD PCP: Care Physician,No Primary Status:REG ER Location: ED HPI History of Present Illness Chief Complaint: Chest Pain Informant: patient Narrative Narrative: Patient started having a cough yesterday occasionally productive of clear sputum. She has occasionally had dyspnea with exertion even when she is not coughing. She does not have asthma. 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 It is not present right now. At rest right now she is not dyspneic. She has had no fevers or chills. 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 No travel out of the region recently. No history of heart or lung problems, she is a diabetic and takes metformin. States 2 years ago she was diagnosed with a PE, she does not know the contacts. However, she states she did not take anticoagulants because she could not afford $500 per month. When asked if she considered other medications, she states she did not follow-up and was not aware that there were cheaper alternatives. She denies any recent immobilization, hospitalization, long travel, surgery, leg pain or swelling, presyncope or syncope. [facility] Medical History Diabetes Elevated LDL cholesterol level H/O blood clots HTN (hypertension) Home Medications carvedilol 6.25 mg tablet 6.25 mg PO BID 02/10/24 [History Last Taken Unknown] furosemide 20 mg tablet 20 mg PO DAILY 02/10/24 [History Last Taken Unknown] lisinopril 10 mg tablet 10 mg PO BID 02/10/24 [History Last Taken Unknown] metformin 500 mg tablet 500 mg PO BID 02/10/24 [History Last Taken Unknown] potassium chloride 10 mEq tablet,extended release (Klor-Con) 10 meq PO DAILY 02/10/24 [History Last Taken Unknown] levofloxacin 750 mg tablet 750 mg PO Q24H #5 tabs 02/24/24 [Rx Last Taken Unknown] Allergy/AdvReac Type Severity Reaction Status Date / Time loratadine [From Claritin] Allergy Swelling Verified 02/23/24 22:44 Surgical History (Updated 02/10/24 @ 23:[address] Jesus Calloway, ) H/O dilation and curettage Hx of tonsillectomy Social History Smoking Status: Former smoker ROS ROS ED Constitutional Constitutional ED: Denies chills or fever(s) Eyes Eyes: Denies change in vision or diplopia ENT ENT ED: Denies rhinorrhea or sore throat Cardiovascular Cardiovascular: Reports as per HPI and chest pain; Denies leg edema or palpitations Respiratory/Chest Respiratory/Chest: Reports cough, dyspnea on exertion and sputum Gastrointestinal Gastrointestinal: Denies abdominal pain, diarrhea, nausea or vomiting Genitourinary Genitourinary ED: Denies dysuria or hematuria Musculoskeletal Musculoskeletal: Denies back pain or neck pain Integumentary Denies abscess or rash Neurologic Neurologic: Denies headache(s), paresthesias or weakness Psychiatric Psychiatric: Denies anxiety or suicidal thoughts EXAM Physical Exam Const Vital Signs: 02/23/24 22:42 02/23/24 22:56 02/23/24 23:42 Temperature 97.9 F Temperature Source Temporal Pulse Rate 76 98 Respiratory Rate 20 H 16 Respiratory Effort Normal Non-Labored Blood Pressure 143/84 H 129/82 H Blood Pressure Mean 103 97 Pulse Ox 100 99 Oxygen Delivery Method Room Air Room Air 02/24/24 00:00 02/24/24 01:00 02/24/24 02:22 Temperature Temperature Source Pulse Rate 98 73 79 Respiratory Rate 16 26 H 16 Respiratory Effort Blood Pressure 130/85 H 122/76 H 132/92 H Blood Pressure Mean 100 91 105 Pulse Ox 99 100 98 Oxygen Delivery Method Room Air Room Air Room Air Positive well nourished, well developed and obese General Appearance ED: well developed and NAD Nutritional Appearance: obese HEENT Reports moist mucous membranes normocephalic and atraumatic Eyes PERRL and EOMs intact bilaterally Neck full ROM and supple Chest Wall inspection of chest normal and palpation of chest normal Resp normal respiratory effort and clear to auscultation bilaterally Cardio regular rate, regular rhythm and no murmurs Rate: Negative for tachycardic Peripheral Pulses: pulses 2+ throughout GI non-tender and non-distended Auscultation: normoactive bowel sounds Palpation: soft Back/Spine no CVA tenderness General Back: other FROM Extremity normal to inspection General Extremety ED: Negative for edema, pulses abnormal or ten (more content not included)... Normal [facility] L501.4020on 02-24-2024 TROPONIN-I HS 11 pg/mL Normal 3.0-54.0 [facility] Comment on above: Order Comment: 'TROP ' Serial specimen #1, #2 or #3: 1 Result Comment: Plea se Note: New Test Units and Gender Specific Reference Ranges. For more information see Policy Stat Procedure [place] High Sensitivity Troponin (TNIH) and attachments. Performed By: #### L 501.4021 #### [facility] [address] [place], [address] M100.678on 02-24-2024 M100.678 SARS-CoV-2 (COVID 19 ) Negative INFLUENZA A Negative INFLUENZA B Negative RSV PCR Negative Normal [facility] Comment on above: Performed By: #### M 100.678 #### [facility] [address] [place], [address] Laboratory - Microbiology an d Antimicrobial susceptibilityOrdered By: Tiago Thompson on 02-23-2024 SARS-CoV-2 (COVID-19) RNA HEIDI+probe Ql (Unsp spec) [facility] No Panel InformationOrdered By: Tiago Thompson on 02-23-2024 D-Dimer Quantitative (PE/DVT) 0.79 FEU/ug/m 0.27-0.49 [facility] Comment on above: D-Dimer ELEVATED (>0 .49): Additional studies and clinicalassessments are indicated to conclude diagnosis of:Deep Vein Thrombosis (DVT) or Pulmonary Embolism (PE)CRITICAL VALUE VERIFIED. CALLED TO HTBIID48/06/24 2342 Stephany Coto.RESULTS READ BACK BY SAME. Troponin I High Sensitivity 11 pg/mL 3.0-54.0 [facility] Comment on above: Please Note: New Cris t Units and Gender Specific Reference Ranges. For more information see Policy Stat Procedure [place] High Sensitivity Troponin (TNIH) and attachments. 12 Lead EKGon 02-11-2024 12 Lead EKG [facility] Cardiovascular Services [address] [place] [address] 12 Lead EKG 02/10/24 230 MR#: [id number] Acct: [id number] Name: CYNTHIA BLANCO ELSI Rep #: [id number] : 1980 43 From: Aries Christian MD Attending Dr: Status: DEP ER Ordering Dr: Jesus Calloway DO Date: 02/10/24 Location: ED Sex: F C Admitted: Test Reason : DYSRHYTHMIA Blood Pressure : / mmHG Vent. Rate : 076 BPM Atrial Rate : 076 BPM P-R Int : 136 ms QRS Dur : 080 ms QT Int : 374 ms P-R-T Axes : -04 003 002 degrees QTc Int : 420 ms Normal sinus rhythm Low voltage Borderline Confirmed by Aries Christian ([id number]), development editor STEPHANY DAY ([id number]) on 02/12/2024 1:42:07 PM Referred By: KATE Confirmed By:Aries Christian 02/12/24 1342 Date Aries Christian MD CC: CROWN [employer]ONER OPERATOR-C Neymar Diego; Dr. Jesus Calloway, DO Signed Normal [facility] Basic Metabolic Profile (BMP )on 02-11-2024 BUN/CRE 20.4 RATIO High 10-20 [facility] Comment on above: Order Comment: 'TROP ' Serial specimen #1, #2 or #3: 1 Performed By: #### L 100.0100, L500.2500, L501.4020 #### [facility] [address] [place], [address] CA,Total 9.3 mg/dL Normal 8.5-10.1 [facility] Comment on above: Order Comment: 'TROP ' Serial specimen #1, #2 or #3: 1 Performed By: #### L 100.0100, L500.2500, L501.4020 #### [facility] [address] [place], [address] Chloride [Moles/Vol] 106 mmol/L Normal 98-107 [facility] Comment on above: Order Comment: 'TROP ' Serial specimen #1, #2 or #3: 1 Performed By: #### L 100.0100, L500.2500, L501.4020 #### [facility] [address], [address] CO2 [Moles/Vol] 28.0 mmol/L Normal 21.0-32.0 [facility] Comment on above: Order Comment: 'TROP ' Serial specimen #1, #2 or #3: 1 Performed By: #### L 100.0100, L500.2500, L501.4020 #### [facility] [address] [place], [address] Creatinine [Mass/Vol] 1.03 mg/dL High 0.55-1.02 [facility] Comment on above: Order Comment: 'TROP ' Serial specimen #1, #2 or #3: 1 Result Comment: The validity of the calculated GFR GFRAA in patients over 70 years has not been determined. Clinical correlation is essential. Performed By: #### L 100.0100, L500.2500, L501.4020 #### [facility] [address], [address] ECRCL 122.36 ml/min Normal [facility] Comment on above: Order Comment: 'TROP ' Serial specimen #1, #2 or #3: 1 Performed By: #### L 100.0100, L500.2500, L501.4020 #### [facility] [address], [address] EST GFR - AA 76 mL/min Normal >60 [facility] Comment on above: Order Comment: 'TROP ' Serial specimen #1, #2 or #3: 1 Result Comment: Afri can [place] GFR Calc Performed By: #### L 100.0100, L500.2500, L501.4020 #### [facility] [address], [address] GAP 5 Normal 5-15 [facility] Comment on above: Order Comment: 'TROP ' Serial specimen #1, #2 or #3: 1 Performed By: #### L 100.0100, L500.2500, L501.4020 #### [facility] [address], [address] GFR/1.73 sq M.predicted among non-blacks MDRD (S/P/Bld) [Vol rate/Area] 62 mL/min/{1.73_m2} Normal >60 [facility] Comment on above: Order Comment: 'TROP ' Serial specimen #1, #2 or #3: 1 Result Comment: Non- GFR Calc Performed By: #### L 100.0100, L500.2500, L501.4020 #### [facility] [address], [address] Glucose [Mass/Vol] 122 mg/dL High 74-106 [facility] Comment on above: Order Comment: 'TROP ' Serial specimen #1, #2 or #3: 1 Result Comment: Fast ing Glucose result from 100 to 125 mg/dL suggests IMPAIRED HOMEOSTASIS per A.D.A. criteria. Performed By: #### L 100.0100, L500.2500, L501.4020 #### [facility] [address], [address] Potassium [Moles/Vol] 4.2 mmol/L Normal 3.5-5.1 [facility] Comment on above: Order Comment: 'TROP ' Serial specimen #1, #2 or #3: 1 Performed By: #### L 100.0100, L500.2500, L501.4020 #### [facility] [address], [address] Sodium [Moles/Vol] 139 mmol/L Normal 136-145 [facility] Comment on above: Order Comment: 'TROP ' Serial specimen #1, #2 or #3: 1 Performed By: #### L 100.0100, L500.2500, L501.4020 #### [facility] [address], [address] Urea nitrogen [Mass/Vol] 21 mg/dL High 7-18 [facility] Comment on above: Order Comment: 'TROP ' Serial specimen #1, #2 or #3: 1 Performed By: #### L 100.0100, L500.2500, L501.4020 #### [facility] [address], [address] CBC W/Diff, Automatedon 01-18 Absolute Lymph 1.50 X10 3/uL Normal 0.83-4.51 [facility] Comment on above: Performed By: #### M 100.678 #### [facility] [address], [address] Absolute Neut 6.0 X10 3/uL Normal 2.0-7.7 [facility] Comment on above: Performed By: #### M 100.678 #### [facility] [address], [address] Basophils/100 WBC (Bld) 0.5 % Normal 0-1 [facility] Comment on above: Performed By: #### M 100.678 #### [facility] [address] [place], [address] Eosinophils/100 WBC (Bld) 2.8 % Normal 0-5 [facility] Comment on above: Performed By: #### M 100.678 #### [facility] [address] [place], [address] Erythrocyte distribution width (RBC) [Ratio] 13.1 % Normal 11.6-14.6 [facility] Comment on above: Performed By: #### M 100.678 #### [facility] [address], [address] Hematocrit (Bld) [Volume fraction] 45.3 % Normal 37-47 [facility] Comment on above: Performed By: #### M 100.678 #### [facility] [address], [address] Hemoglobin (Bld) [Mass/Vol] 14.2 g/dL Normal 12.0-15.0 [facility] Comment on above: Performed By: #### M 100.678 #### [facility] [address] [place], [address] IG% 0.200 Normal 0.0-0.9 [facility] Comment on above: Result Comment: IG% - Immature Granulocytes (promyelocytes, myelocytes and metamyelocytes) > 1% indicates that a LEFT SHIFT is Present. Performed By: #### M 100.678 #### [facility] [address] [place], [address] Lymphocytes/100 WBC (Bld) 18.2 % Low 19-41 [facility] Comment on above: Performed By: #### M 100.678 #### [facility] [address] [place], [address] MCH (RBC) [Entitic mass] 28.7 pg Normal 27.0-32.0 [facility] Comment on above: Performed By: #### M 100.678 #### [facility] [address] [place], [address] MCHC (RBC) [Mass/Vol] 31.3 g/dL Low 32-36 [facility] Comment on above: Performed By: #### M 100.678 #### [facility] [address] [place], [address] MCV (RBC) [Entitic vol] 91.5 fL Normal 81-99 [facility] Comment on above: Performed By: #### M 100.678 #### [facility] [address] [place], [address] Monocytes/100 WBC (Bld) 5.7 % Normal 0-10 [facility] Comment on above: Performed By: #### M 100.678 #### [facility] [address] [place], [address] Neutrophils/100 WBC (Bld) 72.6 % High 47-70 [facility] Comment on above: Performed By: #### M 100.678 #### [facility] [address] [place], [address] Nucleated RBC (Bld) [#/Vol] 0 10*3/uL Normal 0-5 [facility] Comment on above: Performed By: #### M 100.678 #### [facility] [address] [place], [address] Platelet mean volume (Bld) [Entitic vol] 10.3 fL Normal 6.2-12.0 [facility] Comment on above: Performed By: #### M 100.678 #### [facility] [address] [place], [address] Platelets (Bld) [#/Vol] 315 10*3/uL Normal 150-450 [facility] Comment on above: Performed By: #### M 100.678 #### [facility] [address] [place], [address] RBC (Bld) [#/Vol] 4.95 10*6/uL Normal 4.2-5.4 [facility] Comment on above: Performed By: #### M 100.678 #### [facility] [address] [place], [address] RDW SD 43.9 fl Normal 35.1-43.9 [facility] Comment on above: Performed By: #### M 100.678 #### [facility] [address] [place], [address] WBC (Bld) [#/Vol] 8.2 10*3/uL Normal 4.4-11.0 [facility] Comment on above: Performed By: #### M 100.678 #### [facility] [address] [place], [address] CTA Chest W/WO Contraston CTA Chest W/WO Contrast [facility] Imaging Services [address] [address] CTA Chest W/WO Contrast MR#: [id number] Acct: [id number] Name: CYNTHIA BLANCO ELSI Rep #: [id number] : 1980 F 43 From: Mick levy MD PCP: LESLIE Merritt Status: REG ER Study: CTA Chest W/WO Contrast Date of Exam: 02/11/24 Exam# [id number] Ordering Dr: Jesus Calloway DO [id number] STUDY: CTA CHEST REASON FOR EXAM: Female, 43 years old. Elevated D-dimer RADIATION DOSAGE (If Supplied By Facility): CTDIvol = ( 13.85 ) mGy, DLP = ( 518.88 ) mGycm TECHNIQUE: The examination was performed with the intravenous administration of IV 100mL Isovue-370. Post-processing of the angiographic images was performed, with multiplanar reformation and 3D reconstruction. Individualized dose optimization techniques were used for this CT. COMPARISON: Prior study dated: Radiograph 02/10/2024 FINDINGS: PULMONARY ARTERIES: Normal enhancement of the main pulmonary artery and right and left pulmonary arteries. Normal enhancement of the bilateral peripheral pulmonary arteries. There is no demonstrated pulmonary embolism. AORTA: Normal thoracic aorta and visualized great vessels. There is no demonstrated aortic dissection. MEDIASTINUM: Normal heart and pericardium. Normal mediastinum. Normal hilar regions. LUNGS/PLEURA: Normal visualized trachea and bronchi. The lungs are well expanded. Fissural lymph node along the right major fissure near the apex. Minimal groundglass opacities are seen in the right lower lobe. Pleural effusion. No pneumothorax. CHEST WALL: Normal chest wall structures. UPPER ABDOMEN: Normal visualized upper abdomen. OSSEOUS STRUCTURES: No acute or suspicious osseous abnormality. Mild degenerative changes of the spine. CT/CTA Chest W/WO Contrast IMPRESSION: No pulmonary embolism. Groundglass opacities of the right lower lobe could be infectious or inflammatory. Electronically Signed: Mick Prather MD at 1:46 EDT , CC: LESLIE Diego; Dr. Jesus Calloway DO Medical Scientific Liaison: Signed Normal [facility] Chest PA and Lateralon 02-10 Chest PA and Lateral [facility] Services [address] [place] [address] Chest PA and Lateral MR#: [id number] Acct: [id number] Name: CYNTHIA BLANCO Rep #: [id number] : 1980 F 43 From: Marcellus Weiner MD PCP: LESLIE Merritt Status: REG ER Study: Chest PA and Lateral Date of Exam: 02/10/24 Exam# [id number] Ordering Dr: Jesus Calloway DO [id number] INDICATION: chest pain EXAMINATION/TECHNIQUE: X-RAY - XR Chest 2 Views COMPARISON: None. FINDINGS: LINES/DEVICES: None. LUNGS: No consolidation, edema or effusion. No pneumothorax. MEDIASTINUM AND CARDIOVASCULAR STRUCTURES: Cardiac silhouette not enlarged. Central airways and mediastinal contour are unremarkable. BONES AND SOFT TISSUES: Unremarkable. RAD/Chest PA and Lateral IMPRESSION: No radiographic evidence of acute cardiopulmonary disease. Electronically Signed: Marcellus Weiner MD at 23:50 EDT Reading Location ID and State: [facility] / [place] Tel , Service support , CC: [employer] OPERATOR-C Neymar Diego; Dr. Jesus Calloway DO Medical Scientific Liaison: Signed Normal [facility] D-Dimer Quantitative (DVT/PE )on 02-11-2024 D-DIMER QUANT 0.63 FEU/ug/m Invalid Interpretation Code 0.27-0.49 [facility] Comment on above: Order Comment: CRITI NOAH VALUE VERIFIED. [facility] 0056 Bernice Snow. RESULTS READ BACK BY SAME. Result Comment: D-Di rory ELEVATED (>0.49): Additional studies and clinical assessments are indicated to conclude diagnosis of: Deep Vein Thrombosis (DVT) or Pulmonary Embolism (PE) Performed By: #### L [id number] #### [facility] [address], [address] Emergency Department Summary on 02-11-2024 Emergency Department Summary [facility] Medical Records Department [address] [place] [address] Emergency Department Summary 02/10/24 MR#: [id number] Acct: [id number] Name: CYNTHIA BLANCO ELSI Rep #: [id number] : [id number] From: Jesus Calloway DO PCP: LESLIE Merritt Status:DEP ER Location: ED HPI History of Present Illness Chief Complaint: Shortness of Breath Informant: patient Onset/Context/Timing Onset: Today Context: sudden Timing: Continuous Quality: Positive for - (Cannot catch my breath) Worsened by: Nothing Relieved by: Nothing Associated Symptoms cough, rhinorrhea and clear sputum; Negative for post nasal drip, ear pain, fever, sore throat, chills, sweats, white sputum, yellow sputum or green sputum Chest Pain: Positive for Sharp Narrative Narrative: Patient presents with chest pain and shortness of breath that began tonight. Patient states it began while she was getting ready to go to work. Patient states she feels like she cannot catch her breath. Patient states it has been constant. Patient states nothing makes it better nothing makes it worse. Patient states she is coughing up some clear sputum. Patient admits to some rhinorrhea which has been green and thick. Patient denies any fevers or chills. Patient states her pain is mainly over the left upper chest. Patient states that earlier it was on the right side. Patient describes it as sharp. Patient states she was recently diagnosed with influenza B last week. [facility] Medical History (Updated 02/11/24 @ 01:[address] Jesus Calloway DO) Diabetes Elevated LDL cholesterol level H/O blood clots HTN (hypertension) Home Medications carvedilol 6.25 mg tablet 6.25 mg PO BID 02/10/24 [History Last Taken Unknown] furosemide 20 mg tablet 20 mg PO DAILY 02/10/24 [History Last Taken Unknown] lisinopril 10 mg tablet 10 mg PO BID 02/10/24 [History Last Taken Unknown] metformin 500 mg tablet 500 mg PO BID 02/10/24 [History Last Taken Unknown] potassium chloride 10 mEq tablet,extended release (Klor-Con) 10 meq PO DAILY 02/10/24 [History Last Taken Unknown] azithromycin 250 mg tablet 250 mg PO DAILY #4 TABLETS 02/11/24 [Rx Last Taken Unknown] Allergy/AdvReac Type Severity Reaction Status Date / Time loratadine [From Claritin] Allergy Swelling Verified 02/10/24 22:40 Surgical History (Updated 02/10/24 @ 23:[address] Jesus Calloway DO) H/O dilation and curettage Hx of tonsillectomy Social History Smoking Status: Former smoker ROS ROS ED Constitutional Constitutional ED: Denies chills or fever(s) Eyes Eyes: Denies blurry vision or change in vision ENT ENT ED: Denies rhinorrhea or sore throat Cardiovascular Cardiovascular: Reports chest pain; Denies palpitations Respiratory/Chest Respiratory/Chest: Reports cough and dyspnea Gastrointestinal Gastrointestinal: Denies nausea or vomiting Genitourinary Genitourinary ED: Denies dysuria or hematuria Musculoskeletal Musculoskeletal: Denies back pain or neck pain Integumentary Denies abscess or rash Neurologic Neurologic: Denies headache(s) or weakness Allergic/Immunologic Allergic/Immunologic ED: Denies mouth swelling or urticaria EXAM Physical Exam Const Vital Signs: 02/10/24 22:44 02/10/24 23:26 02/10/24 23:26 Temperature 96.9 F L Temperature Source Temporal Pulse Rate 75 Respiratory Rate 18 Respiratory Effort Short of Breath Respiratory Depth Normal Respiratory Pattern Tachypnea Blood Pressure 153/111 H Blood Pressure Mean 125 Pulse Ox 97 Oxygen Delivery Method Room Air Room Air 02/11/24 00:40 Temperature Temperature Source Pulse Rate 70 Respiratory Rate 23 H Respiratory Effort Respiratory Depth Respiratory Pattern Blood Pressure 131/82 H Blood Pressure Mean 98 Pulse Ox 100 Oxygen Delivery Method Room Air Positive well nourished, well developed and obese General Appearance ED: well developed and NAD Nutritional Appearance: obese HEENT Reports moist mucous membranes Neck supple, no meningeal signs and no JVD Chest Wall Chest Narrative: There is reproducible tenderness of the left upper chest wall. There is no bony crepitance or step- off noted. There is no subcutaneous emphysema noted. Resp normal respiratory effort and clear to auscultation bilaterally Cardio regular rate and regular rhythm GI non-tender and non-distended Palpation: soft Neuro oriented x3, CN's II-XII intact bilaterally and no sensory deficits noted [place] Coma Scale: document GCS findings Spontaneous Obeys Commands Oriented 15 Sensorium / Orientation: alert Motor Exam: strength 5/5 throughout Psych mental status grossly normal MDM MDM MDM Narrative Medical decision making narrative: (more content not included)... Normal [facility] L501.4020on 02-11-2024 TROPONIN-I HS 16 pg/mL Normal 3.0-54.0 [facility] Comment on above: Order Comment: 'TROP ' Serial specimen #1, #2 or #3: 1 Result Comment: Celine fields Note: New Test Units and Gender Specific Reference Ranges. For more information see Policy Stat Procedure [place] High Sensitivity Troponin (TNIH) and attachments. Performed By: #### M 100.678 #### [facility] [address], [address] Absolute lymphocyte countOrd ered By: Jesus Callwoay on 02-10-2024 Lymphocytes Auto (Unsp spec) [#/Vol] 1.50 10*3/uL 0.83-4.51 [facility] Automated lymphocyte count a s percentage of total leukocytesOrdered By: Jesus Calloway on 02-10-2024 Lymphocytes/100 WBC Auto (Unsp spec) 18.2 % 19-41 [facility] Basophil percentageOrdered B y: Jesus Calloway on 02-10-2024 Basophils/100 WBC (Bld) 0.5 % 0-1 [facility] Chloride [Moles/Vol] 106 mmol/L 98-107 [facility] Eosinophils/100 WBC (Bld) 2.8 % 0-5 [facility] Glucose [Mass/Vol] 122 mg/dL 74-106 [facility] Comment on above: Fasting Glucose resu lt from 100 to 125 mg/dL suggests IMPAIRED HOMEOSTASIS per A.D.A. criteria. Hemoglobin (Bld) [Mass/Vol] 14.2 g/dL 12.0-15.0 [facility] Monocytes/100 WBC (Bld) 5.7 % 0-10 [facility] Neutrophils (Bld) [#/Vol] 6.0 10*3/uL 2.0-7.7 [facility] Neutrophils/100 WBC (Bld) 72.6 % 47-70 [facility] Potassium [Moles/Vol] 4.2 mmol/L 3.5-5.1 [facility] Sodium [Moles/Vol] 139 mmol/L 136-145 [facility] WBC (Bld) [#/Vol] 8.2 10*3/uL 4.4-11.0 [facility] Determination of erythrocyte mean corpuscular volume (MCV)Ordered By: Jesus Calloway on 02-10-2024 MCV (RBC) [Entitic vol] 91.5 fL 81-99 [facility] Erythrocyte distribution wid th ratioOrdered By: Jesus Calloway on 02-10-2024 Erythrocyte distribution width (RBC) [Ratio] 13.1 % 11.6-14.6 [facility] Erythrocyte distribution wid th standard deviationOrdered By: Jesus Calloway on 02-10-2024 Erythrocyte distribution width (RBC) [Entitic vol] 43.9 fL 35.1-43.9 [facility] Hematocrit Auto (Bld) [Volum e fraction]Ordered By: Jesus Calloway on 02-10-2024 Hematocrit (Bld) [Volume fraction] 45.3 % 37-47 [facility] Immature granulocytes/100 WB C Auto (Bld)Ordered By: Jesus Calloway on 02-10-2024 Immature granulocytes/100 WBC (Bld) 0.200 % 0.0-0.9 [facility] Comment on above: IG% - Immature Granu locytes (promyelocytes, myelocytes and metamyelocytes) > 1% indicates that a LEFT SHIFT is Present. Laboratory - Chemistry and C hemistry - challengeOrdered By: Jesus Calloway on 02-10-2024 CO2 [Moles/Vol] 28.0 mmol/L 21.0-32.0 [facility] Urea nitrogen/Creatinine [Mass ratio] 20.4 mg/mg 10-20 [facility] - Hematology and Cell countsOrdered By: Jesus Calloway on 03-24-2024 MCH (RBC) [Entitic mass] 28.7 pg 27.0-32.0 [facility] MCHC (RBC) [Mass/Vol] 31.3 g/dL 32-36 [facility] Nucleated RBC/100 WBC (Bld) [Ratio] 0 % 0-5 [facility] Platelet mean volume (Bld) [Entitic vol] 10.3 fL 6.2-12.0 [facility] Platelets (Bld) [#/Vol] 315 10*3/uL 150-450 [facility] No Panel InformationOrdered By: Jesus Calloway on 02-10-2024 D-Dimer Quantitative (PE/DVT) 0.63 FEU/ug/m 0.27-0.49 [facility] Comment on above: D-Dimer ELEVATED (>0 .49): Additional studies and clinicalassessments are indicated to conclude diagnosis of:Deep Vein Thrombosis (DVT) or Pulmonary Embolism (PE) Estimated Creatinine Clearance Calc 122.36 ml/min [facility] Estimated GFR (MDRD) Amer 76 mL/min >60 [facility] Comment on above: GFR Calc Estimated GFR (MDRD) Non-Af Amer 62 mL/min >60 [facility] Comment on above: Non- GFR Calc Troponin I High Sensitivity 16 pg/mL 3.0-54.0 [facility] Comment on above: Please Note: New Cris t Units and Gender Specific Reference Ranges. For more information see Policy Stat Procedure [place] High Sensitivity Troponin (TNIH) and attachments. RBC Auto (Bld) [#/Vol]Ordere d By: Jesus Calloway on 02-10-2024 RBC (Bld) [#/Vol] 4.95 10*6/uL 4.2-5.4 [facility] Serum or plasma calcium marcie urement (mass/volume)Ordered By: Jesus Calloway on 02-10-2024 Calcium [Mass/Vol] 9.3 mg/dL 8.5-10.1 [facility] Serum or plasma creatinine m easurement (mass/volume)Ordered By: Jesus Calloway on 02-10-2024 Creatinine [Mass/Vol] 1.03 mg/dL 0.55-1.02 [facility] Comment on above: The validity of the calculated GFR & GFRAA in patients over 70 years has not been determined. Clinical correlation is essential. Serum or plasma urea nitroge n measurement (mass/volume)Ordered By: Jesus Calloway on 02-10-2024 Urea nitrogen [Mass/Vol] 21 mg/dL 7-18 [facility] Thin prep Papanicolaou smear with manual screeningOrdered By: Jesus Calloway on 02-10-2024 Thin prep Papanicolaou smear with manual screening 5 5-15 [facility] Vital Signs Date Time Vital Sign Value Performing Clinician Facility 10-07-2024 08:41-0500 Body height 168.9 cm Donna William APRN.CNP Work Phone: [facility] 10-07-2024 08:41-0500 Body mass index (BMI) [Ratio] 66.93 kg/m2 Donna William APRN.CNP Work Phone: [facility] 10-07-2024 08:41-0500 Body temperature 98.29 [degF] Donna William APRN.OUTSIDE PROPERTY AGENT Work Phone: [facility] 10-07-2024 08:41-0500 Body weight 190.96 kg Donna William APRN.CNP Work Phone: [facility] 10-07-2024 08:41-0500 Diastolic blood pressure 93 mm[Hg] Donna William APRN.CNP Work Phone: [facility] 10-07-2024 08:41-0500 Heart rate 70 /min Donna William APRN.OUTSIDE PROPERTY AGENT Work Phone: [facility] 10-07-2024 08:41-0500 SaO2% (BldA) [Mass fraction] 97 % Donna William APRN.OUTSIDE PROPERTY AGENT Work Phone: [facility] 10-07-2024 08:41-0500 Systolic blood pressure 143 mm[Hg] Donna William APRN.OUTSIDE PROPERTY AGENT Work Phone: [facility] 09-30-2024 09:09-0500 Diastolic blood pressure 78 mm[Hg] Chelsea Ricks APRN.OUTSIDE PROPERTY AGENT Work Phone: [facility] 09-30-2024 09:09-0500 Heart rate 70 /min Chelsea Hrestak TRANSPORTATION COORDINATOR.OUTSIDE PROPERTY AGENT Work Phone: [facility] 09-30-2024 09:09-0500 SaO2% (BldA) [Mass fraction] 98 % Chelsea Hrestak TRANSPORTATION COORDINATOR.OUTSIDE PROPERTY AGENT Work Phone: [facility] 09-30-2024 09:09-0500 Systolic blood pressure 122 mm[Hg] Chelsea Hrestak TRANSPORTATION COORDINATOR.OUTSIDE PROPERTY AGENT Work Phone: [facility] 06-13-2024 14:29-0400 Body height 168.9 cm Donna Triyobani TRANSPORTATION COORDINATOR.OUTSIDE PROPERTY AGENT Work Phone: [facility] 06-13-2024 14:29-0400 Body mass index (BMI) [Ratio] 64.87 kg/m2 Donna Trill TRANSPORTATION COORDINATOR.OUTSIDE PROPERTY AGENT Work Phone: [facility] 06-13-2024 14:29-0400 Body temperature 97.9 [degF] Donna Trill TRANSPORTATION COORDINATOR.OUTSIDE PROPERTY AGENT Work Phone: [facility] 06-13-2024 14:29-0400 Body weight 185.07 kg Donna Trill TRANSPORTATION COORDINATOR.OUTSIDE PROPERTY AGENT Work Phone: [facility] 06-13-2024 14:29-0400 Diastolic blood pressure 78 mm[Hg] Donna Trill TRANSPORTATION COORDINATOR.OUTSIDE PROPERTY AGENT Work Phone: [facility] 06-13-2024 14:29-0400 Heart rate 68 /min Donna Trill TRANSPORTATION COORDINATOR.OUTSIDE PROPERTY AGENT Work Phone: [facility] 06-13-2024 14:29-0400 SaO2% (BldA) [Mass fraction] 98 % Donna Trill TRANSPORTATION COORDINATOR.OUTSIDE PROPERTY AGENT Work Phone: [facility] 06-13-2024 14:29-0400 Systolic blood pressure 118 mm[Hg] Donna Trill TRANSPORTATION COORDINATOR.OUTSIDE PROPERTY AGENT Work Phone: [facility] 06-06-2024 11:12-0400 Body height 168.9 cm Clive Duffy MD Work Phone: [facility] 06-06-2024 11:12-0400 Body mass index (BMI) [Ratio] 65.03 kg/m2 Clive Duffy MD Work Phone: [facility] 06-06-2024 11:12-0400 Body temperature 97.3 [degF] Clive Duffy MD Work Phone: [facility] 06-06-2024 11:12-0400 Body weight 185.52 kg Clive Duffy MD Work Phone: [facility] 06-06-2024 11:12-0400 Diastolic blood pressure 79 mm[Hg] Clive Duffy MD Work Phone: [facility] 06-06-2024 11:12-0400 Heart rate 73 /min Clive Duffy MD Work Phone: [facility] 06-06-2024 11:12-0400 Respiratory rate 20 /min Clive Duffy MD Work Phone: [facility] 06-06-2024 11:12-0400 SaO2% (BldA) [Mass fraction] 96 % Clive Duffy MD Work Phone: [facility] 06-06-2024 11:12-0400 Systolic blood pressure 118 mm[Hg] Clive Duffy MD Work Phone: [facility] 06-04-2024 13:17-0400 Body height 170.[address] Work Phone: [facility] 06-04-2024 13:17-0400 Body mass index (BMI) [Ratio] 62.96 kg/m2 Osmany Swenson RD Work Phone: [facility] 06-04-2024 13:17-0400 Body weight 182.[address] Work Phone: [facility] Comment on above: verbal per patient 05-09-2024 13:52-0400 Body height 170.2 cm Elsy Jayla TRANSPORTATION COORDINATOR.OUTSIDE PROPERTY AGENT Work Phone: [facility] 05-09-2024 13:52-0400 Body mass index (BMI) [Ratio] 62.96 kg/m2 Elsy Dickerson TRANSPORTATION COORDINATOR.OUTSIDE PROPERTY AGENT Work Phone: [facility] 05-09-2024 13:52-0400 Body weight 182.35 kg Elsy Dickerson TRANSPORTATION COORDINATOR.OUTSIDE PROPERTY AGENT Work Phone: [facility] 05-07-2024 15:15-0400 Body height 170.2 cm Caprice Grace MD Work Phone: [facility] 05-07-2024 15:15-0400 Body mass index (BMI) [Ratio] 62.96 kg/m2 Caprice Grace MD Work Phone: [facility] 05-07-2024 15:15-0400 Body weight 182.35 kg Caprice Grace MD Work Phone: [facility] 04-08-2024 14:14-0400 Body height 168.9 cm Rachel Corrigan APRN.OUTSIDE PROPERTY AGENT Work Phone: [facility] 04-08-2024 14:14-0400 Body mass index (BMI) [Ratio] 63.91 kg/m2 Rachel Corrigan APRN.OUTSIDE PROPERTY AGENT Work Phone: [facility] 04-08-2024 14:14-0400 Body weight 182.35 kg Rachel Corrigan APRN.OUTSIDE PROPERTY AGENT Work Phone: [facility] 04-08-2024 14:14-0400 Diastolic blood pressure 85 mm[Hg] Rachel Corrigan APRN.OUTSIDE PROPERTY AGENT Work Phone: [facility] Comment on above: on wrist cuff 04-08-2024 14:14-0400 Systolic blood pressure 135 mm[Hg] Rachel Corrigan APRN.OUTSIDE PROPERTY AGENT Work Phone: [facility] Comment on above: on wrist cuff 03-11-2024 14:11-0400 Diastolic blood pressure 93 mm[Hg] Donna William APRN.OUTSIDE PROPERTY AGENT Work Phone: [facility] 03-11-2024 14:11-0400 Systolic blood pressure 128 mm[Hg] Donna William APRN.OUTSIDE PROPERTY AGENT Work Phone: [facility] 03-11-2024 13:23-0400 Body height 170.2 cm Donna William APRN.OUTSIDE PROPERTY AGENT Work Phone: [facility] 03-11-2024 13:23-0400 Body mass index (BMI) [Ratio] 60.77 kg/m2 Donna William APRN.OUTSIDE PROPERTY AGENT Work Phone: [facility] 03-11-2024 13:23-0400 Body temperature 98.01 [degF] Donna William APRN.OUTSIDE PROPERTY AGENT Work Phone: [facility] 03-11-2024 13:23-0400 Body weight 176 kg Donna William APRN.OUTSIDE PROPERTY AGENT Work Phone: [facility] 03-11-2024 13:23-0400 Heart rate 77 /min Donna William APRN.OUTSIDE PROPERTY AGENT Work Phone: [facility] 03-11-2024 13:23-0400 SaO2% (BldA) [Mass fraction] 98 % Donna William APRN.OUTSIDE PROPERTY AGENT Work Phone: [facility] 02-26-2024 15:56-0400 Body height 170.2 cm Clive Duffy MD Work Phone: [facility] 02-26-2024 15:56-0400 Body temperature 96.8 [degF] Clive Duffy MD Work Phone: [facility] 02-26-2024 15:56-0400 Body weight 179.62 kg Clive Duffy MD Work Phone: [facility] 02-26-2024 15:56-0400 Diastolic blood pressure 102 mm[Hg] Clive Duffy MD Work Phone: [facility] 02-26-2024 15:56-0400 Heart rate 91 /min Clive Duffy MD Work Phone: [facility] 02-26-2024 15:56-0400 Respiratory rate 19 /min Clive Duffy MD Work Phone: [facility] 02-26-2024 15:56-0400 SaO2% (BldA) [Mass fraction] 97 % Clive Duffy MD Work Phone: [facility] 02-26-2024 15:56-0400 Systolic blood pressure 169 mm[Hg] Clive Duffy MD Work Phone: [facility] 02-24-2024 02:39-0400 Body temperature 98 [degF] [facility] 02-24-2024 02:39-0400 Diastolic blood pressure 62 mm[Hg] [facility] 02-24-2024 02:39-0400 Heart rate 79 /min [facility] 02-24-2024 02:39-0400 Respiratory rate 16 /min [facility] 02-24-2024 02:39-0400 SaO2% (BldA) [Mass fraction] 96 % [facility] 02-24-2024 02:39-0400 Systolic blood pressure 130 mm[Hg] [facility] 02-23-2024 22:42-0400 Body height 170.18 cm [facility] 02-11-2024 01:59-0400 Body temperature 97.6 [degF] [facility] 02-11-2024 01:59-0400 Diastolic blood pressure 99 mm[Hg] [facility] 02-11-2024 01:59-0400 Heart rate 76 /min [facility] 02-11-2024 01:59-0400 Respiratory rate 24 /min [facility] 02-11-2024 01:59-0400 SaO2% (BldA) [Mass fraction] 99 % [facility] 02-11-2024 01:59-0400 Systolic blood pressure 149 mm[Hg] [facility] 02-10-2024 22:44-0400 Body height 170.18 cm [facility] 02-10-2024 22:44-0400 Body mass index (BMI) [Ratio] 62.1 kg/m2 [facility] 02-10-2024 22:44-0400 Body weight 179.94 kg [facility] Encounters Encounter Date Encounter Type Care Provider Facility Start: 08-31-2025 ambulatory DONNA C TRILL Facilit y:[facility] Start: 08-29-2025 End: 08-30-2025 ambulatory DONNA C TRILL Facility:[facility] Start: 07-14-2025 End: 07-14-2025 ambulatory Donna C Trill TRANSPORTATION COORDINATOR.OUTSIDE PROPERTY AGENT Work Phone: [facility] Start: 07-12-2025 End: 07-13-2025 Refill Angeles Marion Sheets DO Work Phone: [facility] Comment on above: Refill Request Start: 06-11-2025 End: 06-11-2025 Refill Donna C Trill TRANSPORTATION COORDINATOR.OUTSIDE PROPERTY AGENT Work Phone: [facility] Comment on above: Refill Request Start: 05-12-2025 End: 06-12-2025 ambulatory Donna C Trill TRANSPORTATION COORDINATOR.OUTSIDE PROPERTY AGENT Work Phone: [facility] Start: 03-11-2025 End: 03-11-2025 Refill Donna C Trill TRANSPORTATION COORDINATOR.OUTSIDE PROPERTY AGENT Work Phone: [facility] Comment on above: Refill Request Start: 03-02-2025 End: 03-03-2025 Refill Donna C Trill TRANSPORTATION COORDINATOR.OUTSIDE PROPERTY AGENT Work Phone: [facility] Comment on above: Refill Request Start: 01-05-2025 End: 01-05-2025 Telephone encounter Donna C Trill TRANSPORTATION COORDINATOR.OUTSIDE PROPERTY AGENT Work Phone: [facility] Comment on above: Medication Problem ( Needs dispense as written taken off ) Start: 01-04-2025 End: 01-07-2025 Refill Donna C Trill TRANSPORTATION COORDINATOR.OUTSIDE PROPERTY AGENT Work Phone: [facility] Comment on above: Med Change Request Start: 01-02-2025 End: 01-03-2025 Refill Donna William TRANSPORTATION COORDINATOR.OUTSIDE PROPERTY AGENT Work Phone: [facility] Comment on above: Refill Request Start: 12-25-2024 End: 12-27-2024 Refill Donnatano William TRANSPORTATION COORDINATOR.OUTSIDE PROPERTY AGENT Work Phone: [facility] Comment on above: Refill Request Start: 12-25-2024 End: 12-27-2024 Refill Donnatano William TRANSPORTATION COORDINATOR.OUTSIDE PROPERTY AGENT Work Phone: [facility] Comment on above: Refill Request Start: 12-21-2024 End: 12-23-2024 Refill Donna C Nataliia TRANSPORTATION COORDINATOR.OUTSIDE PROPERTY AGENT Work Phone: [facility] Comment on above: Refill Request Start: 10-07-2024 End: 10-07-2024 Patient encounter procedure Donna William APRN.OUTSIDE PROPERTY AGENT Work Phone: [facility] Comment on above: Numbness of right pena nd (Primary Dx); Controlled type 2 diabetes mellitus without complication, with long-term current use of insulin (HCC) Start: 10-07-2024 End: 10-07-2024 ambulatory DONNA C NATALIIA Facility:[facility] Start: 09-30-2024 End: 09-30-2024 ambulatory DONNA C NATALIIA Facility:[facility] Start: 09-30-2024 End: 09-30-2024 Patient encounter procedure Chelsea Ricks APRN.OUTSIDE PROPERTY AGENT Work Phone: Neurology Comment on above: Numbness and tinglin g in right hand (Primary Dx); Pain in right hand Start: 09-25-2024 End: 09-25-2024 Telephone encounter Donna William APRN.OUTSIDE PROPERTY AGENT Work Phone: [facility] Comment on above: Results Start: 09-24-2024 End: 09-24-2024 ambulatory DONNA C NATALIIA Facility:[facility] Start: 09-24-2024 End: 09-24-2024 ambulatory DONNA C NATALIIA Facility:[facility] Start: 09-18-2024 End: 09-19-2024 Telephone encounter Donna William APRN.OUTSIDE PROPERTY AGENT Work Phone: [facility] Comment on above: Lab Orders Start: 08-02-2024 End: 08-04-2024 Refill Donna William APRN.OUTSIDE PROPERTY AGENT Work Phone: [facility] Comment on above: Refill Request Start: 08-01-2024 End: 08-01-2024 Patient encounter procedure Porsha Pabon OD Work Phone: Ophthalmology Comment on above: Type 2 diabetes boo itus without retinopathy (HCC) (Primary Dx); RPE mottling of macula; Optic disc pallor, bilateral; Regular astigmatism of both eyes Start: 07-14-2024 End: 07-14-2024 Refill Donna William APRN.OUTSIDE PROPERTY AGENT Work Phone: [facility] Comment on above: Refill Request Start: 07-10-2024 End: 07-10-2024 [address] O[address] Swneson RD Work Phone: General Surgery Start: 07-07-2024 End: 07-07-2024 Telephone encounter Donna William APRN.OUTSIDE PROPERTY AGENT Work Phone: [facility] Comment on above: Results Start: 06-18-2024 Telephone encounter Donna William APRN.OUTSIDE PROPERTY AGENT Work Phone: [facility] Comment on above: Results Start: 06-15-2024 ambulatory Donna negron TRANSPORTATION COORDINATOR.OUTSIDE PROPERTY AGENT Work Phone: [facility] Comment on above: Potassium Start: 06-13-2024 End: 06-13-2024 Patient encounter procedure Donna William APRN.OUTSIDE PROPERTY AGENT Work Phone: [facility] Comment on above: Controlled type 2 di abetes mellitus without complication, with long-term current use of insulin (HCC) (Primary Dx); Special screening examination for viral disease; Screening for HIV (human immunodeficiency virus); Vitamin D deficiency Start: 06-06-2024 End: 06-06-2024 Patient encounter procedure Clive Duffy MD Work Phone: Pulmonary Medicine Comment on above: JOSE ENRIQUE (obstructive sle ep apnea) (Primary Dx); Acute bronchitis, unspecified organism; Acute cough Start: 06-04-2024 End: 06-04-2024 Admission to same day surgery center Osmany Kochdonna PUCKETT Work Phone: General Surgery Comment on above: Morbid obesity (HCC) (Primary Dx); Dietary counseling and surveillance Start: 06-04-2024 End: 06-04-2024 Telemedicine consultation with patient Osmany Kochdonna PUCKETT Work Phone: General Surgery Start: 05-09-2024 End: 05-09-2024 Admission to same day surgery center Elsy Dickerson YESENIA.OUTSIDE PROPERTY AGENT Work Phone: General Surgery Comment on above: Class 3 severe obesi ty with serious comorbidity and body mass index (BMI) of 60.0 to 69.9 in adult, unspecified obesity type (HCC) (Primary Dx) JOSE ENRIQUE (obstructive sle ep apnea) (Primary Dx) Start: 05-09-2024 End: 05-09-2024 Telemedicine consultation with patient Elsy Dickerson APRN.OUTSIDE PROPERTY AGENT Work Phone: General Surgery Start: 05-09-2024 Telephone encounter Theo overton MD Work Phone: Pulmonary Medicine Start: 05-07-2024 End: 05-07-2024 Admission to same day surgery center Caprice Grace MD Work Phone: General Surgery Comment on above: Morbid obesity (HCC) (Primary Dx); Dyslipidemia; Type 2 diabetes mellitus with morbid obesity (HCC); Obstructive sleep apnea; VTE (venous thromboembolism) Start: 05-07-2024 End: 05-07-2024 Telemedicine consultation with patient Caprice Grace MD Work Phone: General Surgery Start: 05-05-2024 End: 05-05-2024 [facility] Munira Velazquez PhD Work Phone: General Surgery BMI PSYL Comment on above: PTSD (post-traumatic stress disorder) (Primary Dx); Other specified eating disorder; Psychological factors affecting morbid obesity (HCC) Start: 04-24-2024 End: 04-24-2024 Patient encounter procedure Psg Neur Home Sleep Test Mailout Work Phone: Neurology Comment on above: JOSE ENRIQUE (obstructive sle ep apnea) Start: 04-22-2024 Refill Donna negron APRN.CNP Work Phone: [facility] Comment on above: Refill Request Start: 04-16-2024 Chart abstracting [facility] Work Phone: Neurology Start: 04-11-2024 Telephone encounter Donna William APRN.CNP Work Phone: [facility] Comment on above: Results Start: 04-09-2024 Documentation procedure Mammog yong Coordinator [facility] Start: 04-09-2024 Letter encounter Mammography Coordinator [facility] Start: 04-08-2024 End: 04-08-2024 Patient encounter procedure Rachel Corrigan APRN.CNP Work Phone: OB/Gynecology Comment on above: Encounter for gyneco logical examination (general) (routine) without abnormal findings (Primary Dx); IUD (intrauterine device) in place; Screening for cervical cancer; Encounter for screening for human papillomavirus (HPV); Encounter for screening mammogram for breast cancer; Class 3 severe obesity with body mass index (BMI) of 60.0 to 69.9 in adult, unspecified obesity type, unspecified whether serious comorbidity present (HCC) Start: 04-08-2024 End: 04-08-2024 Patient encounter status Rachel Corrigan APRN.CNP Work Phone: [facility] Start: 04-08-2024 End: 04-08-2024 Subsequent hospital visit by physician Screen Mammo [facility] Mammogram Comment on above: Encounter for screen ing mammogram for breast cancer [Z12.31] Start: 04-02-2024 Telephone encounter Donna William APRN.CNP Work Phone: [facility] Comment on above: Results (Labs) Start: 03-11-2024 End: 03-11-2024 Patient encounter procedure Donna William APRN.CNP Work Phone: [facility] Comment on above: Lung nodules (Primar y Dx); Encounter for screening mammogram for breast cancer; Screening for cervical cancer; IUD (intrauterine device) in place; Fertility testing; Controlled type 2 diabetes mellitus without complication, with long-term current use of insulin (HCC); Primary hypertension; Vitamin D deficiency Start: 02-26-2024 End: 02-26-2024 Patient encounter procedure Clive Duffy MD Work Phone: Pulmonary Medicine Comment on above: Acute bronchitis, un specified organism (Primary Dx); JOSE ENRIQUE (obstructive sleep apnea); Other acute recurrent sinusitis; Acute cough; Abnormal CT of the chest; Lung nodule Start: 02-26-2024 ambulatory Lorraine Mosqueda RN NURSE [employer] HE[employer] DIETITIAN Comment on above: Cough Start: 02-24-2024 End: 02-24-2024 Emergency department patient visit [facility] Facility:[facility] Start: 02-23-2024 End: 02-24-2024 Emergency department patient visit [facility] Work Phone: Start: 02-11-2024 End: 02-11-2024 Emergency department patient visit Jesus Calloway Facility:[facility] Start: 02-10-2024 End: 02-11-2024 Emergency department patient visit [facility] Work Phone: Start: 11-29-2023 End: 11-29-2023 ambulatory [facility] Procedures Date Procedure Procedure Detail Performing Clinician Start: 08-01-2024 End: 08-01-2024 Computerized ophthalmic imaging retina Porsha Pabon OD Work Phone: Start: 06-13-2024 Urine albumin quantitative Donna William APRN.OUTSIDE PROPERTY AGENT Work Phone: Start: 05-05-2024 Adult depression scr eening assessment Donna William APRN.CNP Work Phone: Start: 02-24-2024 CT of chest without contrast Start: 02-23-2024 Plain chest X-ray Start: 02-23-2024 SARS-CoV-2, Influenz a & RSV (PCR) Start: 02-11-2024 CT angiography of ch est with contrast Start: 02-10-2024 Plain chest X-ray Plan of Treatment Date Care Activity Detail Author Start: 10-07-2025 Annual PCP Team Chronic Disease Visit Annual PCP Team Chronic Disease Visit [facility] Start: 10-07-2025 Covid-19 Vaccine ( season) Covid-19 Vaccine () [facility] Comment on above: Postponed from 07/20/2024 (Declined at t his time) Start: 10-07-2025 Pneumococcal vaccination Pneumococcal Vaccine (1 of 2 - PCV) [facility] Comment on above: Postponed from 1987 (Declined at t his time) Postponed from 11/16 (Declined at this time) Start: 10-07-2025 Urine microalbumin profile DTaP,Tdap,Td Vaccine (1 - Tdap) [facility] Comment on above: Postponed from 2000 (Declined at t his time) Start: 09-30-2025 BP Controlled (<130/80) BP Controlled (<130/80) [facility] Start: 09-24-2025 Hepatitis B screening Urine Albumin:Creatinine Ratio [facility] Start: 09-11-2025 End: 09-11-2025 Patient encounter procedure 09/11/2025 3:30 PM EDT Office Visit OB/Gynecology [address] [place] [address] Rachel Corrigan, YESENIA.OUTSIDE PROPERTY AGENT [address] [place] [address] Annual OB/Gynecology Comment on above: Annual Start: 08-01-2025 Glaucoma screening Dilated Retinal Exam [facility] Start: 07-20-2025 Influenza vaccination Influenza Vaccine (#1) [facility] Start: 07-14-2025 End: 07-14-2025 Patient encounter procedure 07/14/2025 2:30 PM EDT Office Visit OB/Gynecology [address] [place] [address] Rachel Corrigan, YESENIA.OUTSIDE PROPERTY AGENT [address] [place] [address] Annual OB/Gynecology Comment on above: Annual Start: 06-13-2025 Annual PCP Team Chronic Disease Visit Annual PCP Team Chronic Disease Visit [facility] Start: 06-13-2025 BP Controlled (<130/80) BP Controlled (<130/80) [facility] Start: 06-13-2025 Diabetic foot examination Diabetic Foot Exam [facility] Start: 06-13-2025 Hepatitis B screening Urine Albumin:Creatinine Ratio [facility] Start: 06-06-2025 BP Controlled (<130/80) BP Controlled (<130/80) [facility] Start: 05-18-2025 Influenza vaccination Influenza Vaccine (#1) [facility] Comment on above: Postponed from 07/20/2024 (Declined at t his time) Start: 05-05-2025 Anxiety Screening Anxiety Screening [facility] Start: 05-05-2025 Depression Screening Depression Screening [facility] Start: 04-10-2025 End: 04-10-2025 Patient encounter procedure Mammogram Comment on above: Encounter for gynecological examination (general) (routine) without abnormal findings [Z01.419]; Encounter for screening mammogram for breast cancer [Z12.31] Annual Start: 04-08-2025 Screening for malignant neoplasm of breast Mammogram Screening [facility] Start: 03-25-2025 Hepatitis B surface antibody level LDL Cholesterol [facility] Start: 03-11-2025 Annual PCP Team Chronic Disease Visit Annual PCP Team Chronic Disease Visit [facility] Start: 03-11-2025 Covid-19 Vaccine ( season) Covid-19 Vaccine () [facility] Comment on above: Postponed from 07/20/2023 (Declined at t his time) Start: 02-11-2025 End: 02-11-2025 Patient encounter procedure 02/11/2025 4:40 PM EDT Office Visit [facility] [address] [place] [address] Donna William, TRANSPORTATION COORDINATOR.[facility] [address] [place] [address] 6 mth f/u diabetes [facility] Comment on above: 6 mth f/u diabetes Start: 01-02-2025 Hemoglobin A1c measurement HbA1C [facility] Start: 12-19-2024 End: 12-19-2024 Patient encounter procedure 12/19/2024 3:00 PM EST Office Visit [facility] [address] [place] [address] Donna William APRN.OUTSIDE PROPERTY AGENT [address] [place] [address] 6 mth f/u diabetes [facility] Comment on above: 6 mth f/u diabetes Start: 10-31-2024 End: 10-31-2024 Patient encounter procedure 10/31/2024 1:15 PM EST Office Visit [facility] [address] [place] [place], [place] [id number] Porsha Pabon, OD [address] [place], [place] [id number] 3 MTH F/U for 30-2 and IOP (30 min). Ophthalmology Comment on above: 3 MTH F/U for 30-2 and IOP (30 min). Start: 10-07-2024 End: 10-07-2024 Patient encounter procedure 10/07/2024 8:40 AM EST Office Visit [facility] [address] [place] [address] Donna William APRN.OUTSIDE PROPERTY AGENT [address] [place] [address] Per Patient, Follow up appointment for my wrist [facility] Comment on above: Per Patient, Follow up appointment for kristie pisano Start: 09-30-2024 End: 09-30-2024 Patient encounter procedure 09/30/2024 9:30 AM EST Office Visit Neurology [facility] [place] [address] Chelsea Ricks APRN.OUTSIDE PROPERTY AGENT [address] [place] [address] Right hand numbness Neurology Comment on above: Right hand numbness Start: 09-26-2024 End: 09-26-2024 Patient encounter procedure 09/26/2024 3:00 PM EST Office Visit [facility] [address] [place] [address] Donna William APRN.OUTSIDE PROPERTY AGENT [address] [place] [address] Follow up for my email in [facility] Comment on above: Follow up for my email in [place] Start: 09-25-2024 Hemoglobin A1c measurement HbA1C [facility] Start: 09-24-2024 End: 09-24-2024 ambulatory 09/24/2024 2:40 PM EST Procedure [facility] [address] [place] [address] nds r/s due to NO DOC jfr [facility] Comment on above: nds r/s due to NO DOC jfr Start: 09-24-2024 End: 09-24-2024 ambulatory 09/24/2024 11:45 AM EST Results Only [facility] [address] [place] [address] [facility] Start: 09-18-2024 End: 12-18-2024 Microalbumin/Creatinin e [Mass Ratio] in Urine ALBUMIN/CREATININE RATIO, URINE Lab Routine Controlled type 2 diabetes mellitus without complication, with long-term current use of insulin (HCC) Expected: 09/18/2024, Expires: 12/18/2024 [facility] Work Phone: Comment on above: Expected: 09/18/2024, Expires: Start: 09-08-2024 End: 09-08-2024 Patient encounter procedure Ophthalmology Comment on above: Diabetes Mellitus My eyes and I'm type 2 diabetic Start: 07-20-2024 Covid-19 Vaccine () Covid-19 Vaccine () [facility] Start: 07-20-2024 Covid-19 Vaccine ( season) Covid-19 Vaccine ( season) [facility] Start: 07-20-2024 Influenza vaccination [facility] Start: 07-10-2024 End: 07-10-2024 Follow-up encounter 07/10/2024 10:30 AM EDT Education General Surgery [address] [place] [address] [place] [address] follow up 0 diet General Surgery Comment on above: follow up 0 diet Start: 07-02-2024 End: 07-02-2024 ambulatory 07/02/2024 4:00 PM EDT Results Only [facility] [address] [place] [address] [facility] Start: 06-13-2024 End: 06-13-2024 Patient encounter procedure 06/13/2024 3:00 PM EDT Office Visit [facility] [address] [place] [address] Donna William APRN.OUTSIDE PROPERTY AGENT [address] [place] [address] 3 month follow up dm [facility] Comment on above: 3 month follow up dm Start: 06-13-2024 End: 01-09-2025 25-hydroxyvitamin D3 [Mass/volume] in Serum or Plasma VITAMIN D 25 HYDROXY Lab Routine Vitamin D deficiency Expected: 06/13/2024, Expires: 01/09/2025 [facility] Comment on above: Expected: 06/13/2024, Expires: Start: 06-13-2024 End: 01-09-2025 Hemoglobin A1c in Blood HEMOGLOBIN A1C Lab Routine Controlled type 2 diabetes mellitus without complication, with long-term current use of insulin (HCC) Expected: 06/13/2024, Expires: 01/09/2025 [facility] Comment on above: Expected: 06/13/2024, Expires: Start: 06-13-2024 End: 09-12-2024 Hepatitis C virus Ab [Presence] in Serum HEPATITIS C ANTIBODY IA WITH CONFIRMATION Lab Routine Special screening examination for viral disease Expected: 06/13/2024, Expires: 09/12/2024 [facility] Work Phone: Comment on above: Expected: 06/13/2024, Expires: Start: 06-13-2024 End: 09-12-2024 HIV 1+2 Ab [Presence] in Serum or Plasma by Immunoassay HIV 1/2 COMBO WITH REFLEX TO DIFFERENTIATION Lab Routine Screening for HIV (human immunodeficiency virus) Expected: 06/13/2024, Expires: 09/12/2024 [facility] Comment on above: Expected: 06/13/2024, Expires: Start: 06-06-2024 End: 06-06-2024 Patient encounter procedure 06/06/2024 11:00 AM EDT Office Visit Pulmonary Medicine [address] [place] [address] Clive Duffy MD [address] [place] [address] [place] [id number] 3 month follow up Pulmonary Medicine Comment on above: 3 month follow up Start: 06-05-2024 End: 06-05-2024 Patient encounter procedure 06/05/2024 11:30 AM EDT Office Visit Pulmonary Medicine [address] [place] [address] Clive Duffy MD [address] [place] [address] [place] [id number] 3 month follow up Pulmonary Medicine Comment on above: 3 month follow up Start: 06-04-2024 End: 06-04-2024 Admission to same day surgery center 06/04/2024 1:15 PM EDT [facility] General Surgery [address] [place] [address] Osmany Swenson, RD [address] [place] [address] Red/Aminian/0 diet/Humana General Surgery Comment on above: Red/Aminian/0 diet/Humana Start: 05-09-2024 End: 05-09-2024 Admission to same day surgery center 05/09/2024 2:00 PM EDT [facility] [address] [place] [address] Elsy Dickerson APRN.OUTSIDE PROPERTY AGENT [address] [place] [address] Red/Aminian/0 diet/Humana [facility] Comment on above: Red/Aminian/0 diet/Humana Start: 05-09-2024 End: 08-08-2024 Cobalamin (Vitamin B12) [Mass/volume] in Serum or Plasma [facility] Comment on above: Expected: 05/09/2024, Expires: Start: 05-09-2024 End: 08-08-2024 Ferritin [Mass/volume] in Serum or Plasma [facility] Work Phone: Comment on above: Expected: 05/09/2024, Expires: 4 Start: 05-09-2024 End: 08-08-2024 Folate [Mass/volume] in Serum or Plasma [facility] Comment on above: Expected: 05/09/2024, Expires: 4 Start: 05-09-2024 End: 08-08-2024 Iron and Iron binding capacity panel - Serum or Plasma [facility] Comment on above: Expected: 05/09/2024, Expires: 4 Start: 05-09-2024 End: 08-08-2024 Natriuretic peptide.B prohormone N-Terminal [Mass/volume] in Serum or Plasma [facility] Comment on above: Expected: 05/09/2024, Expires: 4 Start: 05-09-2024 End: 08-08-2024 VITAMIN B1 (THIAMINE), WHOLE BLOOD [facility] Comment on above: Expected: 05/09/2024, Expires: 4 Start: 05-07-2024 End: 05-07-2024 Admission to same day surgery [facility] General Surgery Comment on above: Red/Aminian/0 diet/Humana Red//0 diet/Humana P 05/05, M 05/09, N 06/04 Start: 05-05-2024 End: 05-05-2024 Admission to same day surgery center 05/05/2024 9:00 AM EDT [facility] General Surgery BMI PSYL [address] [place] [address] Munira Velazquez, PhD [address] [place] [address] Red/Aminian/0 diet/Humana General Surgery BMI PSYL Comment on above: Red/Aminian/0 diet/Humana Start: 04-24-2024 End: 04-24-2024 Patient encounter procedure 04/24/2024 10:00 AM EDT Office Visit Neurology [address] [place] [address] JOSE ENRIQUE (obstructive sleep apnea) [G47.33] Neurology Comment on above: JOSE ENRIQUE (obstructive sleep apnea) [G47.33] Start: 04-07-2024 End: 04-07-2024 ambulatory 04/07/2024 4:00 PM EDT Results Only [facility] [address] [place] [address] [facility] Start: 04-04-2024 End: 04-04-2024 Patient encounter procedure 04/04/2024 2:50 PM EDT Appointment Mammogram [address] [place] [address] Mammogram Start: 04-02-2024 End: 10-29-2024 25-hydroxyvitamin D3 [Mass/volume] in Serum or Plasma VITAMIN D 25 HYDROXY Lab Routine Vitamin D deficiency Expected: 04/02/2024, Expires: 10/29/2024 [facility] Work Phone: Comment on above: Expected: 04/02/2024, Expires: Start: 03-25-2024 End: 03-25-2024 ambulatory 03/25/2024 3:00 PM EDT Results Only [facility] [address] [place] [address] [facility] Start: 03-11-2024 End: 10-07-2024 25-hydroxyvitamin D3 [Mass/volume] in Serum or Plasma VITAMIN D 25 HYDROXY Lab Routine Vitamin D deficiency Expected: 03/11/2024, Expires: 10/07/2024 [facility] Comment on above: Expected: 03/11/2024, Expires: Start: 03-11-2024 End: 10-07-2024 CBC panel - Blood by Automated count COMPLETE BLOOD COUNT Lab Routine Controlled type 2 diabetes mellitus without complication, with long-term current use of insulin (HCC) Primary hypertension Expected: 03/11/2024, Expires: 10/07/2024 [facility] Comment on above: Expected: 03/11/2024, Expires: Start: 03-11-2024 End: 10-07-2024 Comprehensive metabolic 2000 panel - Serum or Plasma COMPREHENSIVE METABOLIC PANEL Lab Routine Controlled type 2 diabetes mellitus without complication, with long-term current use of insulin (HCC) Primary hypertension Expected: 03/11/2024, Expires: 10/07/2024 [facility] Comment on above: Expected: 03/11/2024, Expires: Start: 03-11-2024 End: 10-07-2024 Hemoglobin A1c in Blood HEMOGLOBIN A1C Lab Routine Controlled type 2 diabetes mellitus without complication, with long-term current use of insulin (HCC) Primary hypertension Expected: 03/11/2024, Expires: 10/07/2024 [facility] Comment on above: Expected: 03/11/2024, Expires: Start: 03-11-2024 End: 10-07-2024 Lipid 1996 panel - Serum or Plasma LIPID PANEL BASIC Lab Routine Controlled type 2 diabetes mellitus without complication, with long-term current use of insulin (HCC) Primary hypertension Expected: 03/11/2024, Expires: 10/07/2024 [facility] Comment on above: Expected: 03/11/2024, Expires: Start: 03-11-2024 End: 10-07-2024 Thyrotropin [Units/volume] in Serum or Plasma THYROID STIMULATING HORMONE Lab Routine Controlled type 2 diabetes mellitus without complication, with long-term current use of insulin (HCC) Primary hypertension Expected: 03/11/2024, Expires: 10/07/2024 [facility] Comment on above: Expected: 03/11/2024, Expires: Start: 02-24-2024 [facility] Start: 02-11-2024 [facility] Start: 02-10-2024 [facility] Start: 11-19-2023 Behavioral Health Screening Behavioral Health Screening [facility] Start: 07-20-2023 Covid-19 Vaccine ( season) Covid-19 Vaccine ( season) [facility] Start: 2021 Screening for malignant neoplasm of breast Mammogram Screening [facility] Start: 2011 Screening for malignant neoplasm of cervix HPV Testing [facility] Start: 2008 HPV Vaccine (1 - 3-dose SCDM series) HPV Vaccine (1 - 3-dose SCDM series) [facility] Start: 2002 Screening for malignant neoplasm of cervix [facility] Start: 2000 Hepatitis B Vaccine (1 of 3 - 19+ 3-dose series) Hepatitis B Vaccine (1 of 3 - 19+ 3-dose series) [facility] Start: 2000 Urine microalbumin profile DTaP,Tdap,Td Vaccine (1 - Tdap) [facility] Start: 1999 Anxiety Screening Anxiety Screening [facility] Start: 1999 BP Controlled (<130/80) BP Controlled (<130/80) [facility] Start: 1999 Depression Screening Depression Screening [facility] Start: 1999 Hepatitis B surface antibody level LDL Cholesterol [facility] Start: 1999 Hepatitis C screening Hepatitis C Screening [facility] Start: 1999 HIV screening HIV Screening [facility] Start: 1991 Diabetic foot examination Diabetic Foot Exam [facility] Start: 1991 Glaucoma screening Dilated Retinal Exam [facility] Start: 1991 Hepatitis B screening Urine Albumin:Creatinine Ratio [facility] Start: 1987 Pneumococcal vaccination Pneumococcal Vaccine (1 of 2 - PCV) [facility] Start: 1986 Hemoglobin A1c measurement HbA1C [facility] End: 05-08-2025 DBT Breast - bilateral screening JUDIT SCREENING [facility] Radiology Routine Encounter for gynecological examination (general) (routine) without abnormal findings Encounter for screening mammogram for breast cancer 1 Occurrences starting 04/08/2024 until 05/08/2025 [facility] Work Phone: Comment on above: 1 Occurrences starting 04/08/2024 until 05/08/2025 End: 06-11-2026 DBT Breast - bilateral screening JUDIT SCREENING [facility] Radiology Routine Encounter for screening mammogram for breast cancer 1 Occurrences starting 05/12/2025 until 06/11/2026 [facility] Work Phone: Comment on above: 1 Occurrences starting 05/12/2025 until 06/11/2026 End: 05-09-2025 ECG COMPLETE ECG COMPLETE ECG Routine Class 3 severe obesity with serious comorbidity and body mass index (BMI) of 60.0 to 69.9 in adult, unspecified obesity type (HCC) 1 Occurrences starting 05/09/2024 until 05/09/2025 [facility] Comment on above: 1 Occurrences starting 05/09/2024 until 05/09/2025 End: 02-25-2025 HOME SLEEP APNEA TEST (HSAT) HOME SLEEP APNEA TEST (HSAT) Procedures Routine JOSE ENRIQUE (obstructive sleep apnea) 1 Occurrences starting 02/26/2024 until 02/25/2025 [facility] Work Phone: Comment on above: 1 Occurrences starting 02/26/2024 until 02/25/2025 End: 04-10-2025 MG Breast Screening JUDIT SCREENING Radiology Routine Encounter for screening mammogram for breast cancer 1 Occurrences starting 03/11/2024 until 04/10/2025 [facility] Work Phone: Comment on above: 1 Occurrences starting 03/11/2024 until 04/10/2025 MG Breast Screening JUDIT SCREENIN G Radiology Routine Encounter for screening mammogram for breast cancer 04/08/2024 1:[address] [facility] Work Phone: End: 06-08-2025 PAP TITRATION PSG (CPAP, BIPAP, ASV) PAP TITRATION PSG (CPAP, BIPAP, ASV) Procedures Routine JOSE ENRIQUE (obstructive sleep apnea) 1 Occurrences starting 05/09/2024 until 06/08/2025 [facility] Work Phone: Comment on above: 1 Occurrences starting 05/09/2024 until 06/08/2025 Patient Education [facility] Work Phone: Patient referral [facility] Work Phone: End: 06-08-2025 US Abdomen RUQ US ABD RIGHT UPPER QUADRANT Radiology Routine Class 3 severe obesity with serious comorbidity and body mass index (BMI) of 60.0 to 69.9 in adult, unspecified obesity type (HCC) 1 Occurrences starting 05/09/2024 until 06/08/2025 [facility] Comment on above: 1 Occurrences starting 05/09/2024 until 06/08/2025 [facility] Payers Date Payer Category Payer Self-pay 2023 Private Health Insurance HUMANA HU[employer]NA MEDICAID [facility] [id number] 2023-Present [address] [address] [place] [address] Medicaid [id number] 2023 Private Health Insurance [id number] Unknown [id number] Unknown [id number] Social History Date Type Detail Facility Start: 02-10-2024 End: 02-23-2024 Tobacco smoking status NHIS Unknown if ever smoked [facility] Start: 1980 Sex Assigned At Female W [facility] Start: 02-26-2024 End: 04-08-2024 Tobacco smoking status NHIS Never smoked tobacco [facility] Start: 02-26-2024 End: 10-07-2024 Alcohol intake Current drinker of alcohol (finding) [facility] Start: 02-26-2024 End: 09-30-2024 History of Social function [facility] Start: 02-26-2024 End: 09-30-2024 Tobacco use panel [facility] Start: 02-26-2024 Alcohol Comment occ Elissa reese [facility] Start: 1980 Sex Assigned At Not on file [facility] Start: 09-03-2023 Adult Depression Screening Assessment 0 [facility] Start: 04-08-2024 Tobacco use and exposure Smokeless tobacco non-user [facility] Medical Equipment Procedure Code Equipment Code Equipment Origin al Text Equipment Identifier Dates [id number], [id number], [id number], [id number] Start: 01-09-2024 End: 03-11-2025 Comment on above: four times daily. US E DIRECTED. Mental Status Date Assessment Result Facility 02-23-2024 Cognitive function Voice/Name [facility] Work Phone: Clinical Notes 02-24-2024 to 08-31-2025 Ambar White LPN - 07/14/2025 1:33 PM EDTTelephone Encounter - Andres Eaton MA - 07/13/2025 10:20 AM EDTTelephone Encounter - Andres Eaton MA - 07/13/2025 10:20 AM EDTPatient Instructions Note Date & Type Note Facility 08-31-2025 Note HNO ID: [id number] Author: OMERO MARIA Mammo Tech Service: ? Author Type: Asset Protection Specialist Type: Progress Notes Filed: 08/31/2025 13:32 Note Text: Radiology Service Progress Note PATIENT NAME: Cynthia Blanco DATE OF SERVICE: August 31, 2025 TIME: 1:32 PM PATIENT IDENTITY VERIFICATION COMPLETED USING TWO (2) IDENTIFIERS: Name and Date of confirmed by patient verbally. FALL SCREENING: Has the patient had 2 falls in the last year or 1 fall with injury or currently using an Ambulatory Assistive Device (Walker, Cane, Wheelchair, Crutches, etc.)? No PATIENT GENDER DATA: Assigned female at . status: : No status: NO. PATIENT RELEVANT IMPLANT DATA REVIEWED: Not Applicable PATIENT PRESENTS WITH AN IMPLANTABLE OR ATTACHED ROOM SERVICE SUPERVISOR: No RADIOLOGY DEPARTMENT: Mammography PERIPHERAL IV DATA: Not applicable SIGNED BY: Purnima Duval August 31, 2025 1:32 PM [facility] 08-29-2025 Note HNO ID: [id number] Author: FRANCES HOWARD RT(R) Service: ? Author Type: Asset Protection Specialist Type: Progress Notes Filed: 08/29/2025 13:26 Note Text: Radiology Service Progress Note PATIENT NAME: Cynthia Blanco DATE OF SERVICE: August 29, 2025 TIME: 1:17 PM PATIENT IDENTITY VERIFICATION COMPLETED USING TWO (2) IDENTIFIERS: Name and Date of confirmed by patient verbally. FALL SCREENING: Has the patient had 2 falls in the last year or 1 fall with injury or currently using an Ambulatory Assistive Device (Walker, Cane, Wheelchair, Crutches, etc.)? No PATIENT GENDER DATA: Assigned female at . status: : No status: NO. PATIENT RELEVANT IMPLANT DATA REVIEWED: Yes PATIENT PRESENTS WITH AN IMPLANTABLE OR ATTACHED ROOM SERVICE SUPERVISOR: No RADIOLOGY DEPARTMENT: General X-ray: Exam(s) Completed: Lower Extremity X-Ray(s): Foot, Left PERIPHERAL IV DATA: Not applicable SIGNED BY: RT Lazaro(R) August 29, 2025 1:17 PM [facility] 08-29-2025 Note HNO ID: [id number] Author: JOSESITO RIZZO APRN.OUTSIDE PROPERTY AGENT Service: ? Author Type: Nurse Practitioner Type: Progress Notes Filed: 08/29/2025 14:56 Note Text: URGENT CARE [facility] Subjective Cynthia Blanco is a 44 year old female. Patient presents with: Pain (foot): Left heel pain x 2 weeks HPI Nontoxic-appearing 44-year-old female presents urgent care chief complaint left heel pain. Duration of symptoms 2 weeks. Associated symptoms ongoing left heel pain. Presents today for evaluation. OTC medications none. No recent trauma. No new numbness or tingling. Is a diabetic states she does have some present neuropathy. No surgeries fractures previously. Past medical history prescription medications allergies reviewed Review of Systems Constitutional: Negative for activity change, diaphoresis, fatigue and fever. Musculoskeletal: Negative for arthralgias, back pain, gait problem, joint swelling, myalgias, neck pain and neck stiffness. Skin: Negative for pallor, rash and wound. Neurological: Negative for dizziness, seizures, syncope, weakness, light-headedness, numbness and headaches. Psychiatric/Behavioral: Negative for confusion. Objective BP 130/74 Pulse 72 Temp 36.6 ?C (97.9 ?F) Resp 21 Wt (!) 189.2 kg (417 lb 1.8 oz) SpO2 95% BMI 66.31 kg/m? Physical Exam Constitutional: Appearance: Normal appearance. She is normal weight. HENT: Head: Normocephalic. Eyes: Conjunctiva/sclera: Conjunctivae normal. Cardiovascular: Rate and Rhythm: Normal rate. Pulmonary: Effort: Pulmonary effort is normal. Musculoskeletal: Cervical back: Normal range of motion. Left ankle: No swelling, deformity, ecchymosis or lacerations. No tenderness. Normal range of motion. Anterior drawer test negative. Left Achilles Tendon: Tenderness present. Left foot: Normal range of motion and normal capillary refill. Tenderness present. No swelling, deformity, bunion, Charcot foot, laceration or bony tenderness. Normal pulse. Skin: Findings: No rash. Neurological: General: No focal deficit present. Mental Status: She is alert and oriented to person, place, and time. Mental status is at baseline. {ASSESSMENT/PLAN: 1. Foot pain, left - ICD9: 729.5, ICD10: M79.672 - XR FOOT GENERAL 3V AP/LAT/OBL LEFT IMPRESSION: Calcaneal enthesophyte. No acute findings noted. Heel spur noted. Referred to podiatry. Patient was educated on supportive therapies. Patient will follow up with primary care provider as needed. Patient was instructed to immediately proceed to emergency room for any new, worsening, or symptoms lasting longer than anticipated. The patient's clinical presentation is otherwise unremarkable at this time. Based on exam and clinical finding, the patient is stable for discharge. Plan of care was discussed with patient. Patient verbalizes understanding and agrees to plan of care. This note was generated using Imm[employer] software. It may contain errors in wording, punctuation, or spelling. Josesito Rizzo APRN.OUTSIDE PROPERTY AGENT History and Record Review Clinical information obtained from an independent historian. History obtained from or confirmed by: parent. External record(s) reviewed: prior outpatient record. Disposition The patient was discharged. Procedures [facility] 07-14-2025 Note HNO ID: [id number] Author: AMBAR WHITE LPN Service: ? Author Type: Licensed Nurse Type: Progress Notes Filed: 07/14/2025 14:08 Note Text: Letter mailed to pt. Ambar White LPN [facility] 07-14-2025 History of Presen t illness Narrative Letter mailed to ptRamon White LPN documented in this encounter [facility] 07-14-2025 Note Patient Outreach (AG FAMPLE) CYNTHIA BLANCO ([id number]) 1980 F Date Time Provider Department 07/14/25 DONNA WILLIAM During your visit today, we recorded the following information about you: Ambar White LPN 07/14/2025 2:08 PM Signed Letter mailed to pt. Ambar White LPN Allergies As of Date: 07/14/2025 Noted Allergy Reaction CLARITIN (LORATADINE) 02/26/2024 14 - Other: See Comments Comments: Lymph nodes swell Date Reviewed: 10/07/2024 Reviewed by: Lorraine Olea MA - Fully Assessed Prescriptions as of 07/14/2025 - ergocalciferol 50,000 unit capsule (VITAMIN D2, DRISDOL) Take 1 capsule by mouth once a week - carvedilol (COREG) 6.25 mg tablet TAKE 1 TABLET BY MOUTH EVERY 12 HOURS - furosemide (LASIX) 20 mg tablet TAKE 1 TABLET BY MOUTH ONCE DAILY EVERY AFTERNOON - lisinopril (ZESTRIL) 10 mg tablet TAKE 1 TABLET BY MOUTH EVERY 12 HOURS - metFORMIN (GLUCOPHAGE) 500 mg tablet TAKE 1 TABLET BY MOUTH EVERY 12 HOURS - insulin glargine-yfgn (SEMGLEE) 100 unit/mL (3 mL) insulin pen Inject 15 Units subcutaneously daily at bedtime. - insulin aspart U-100 (NOVOLOG FLEXPEN U-100 INSULIN) 100 unit/mL (3 mL) INJECT 3 UNITS AT EACH MEAL PLUS 1 UNIT FOR EVERY 20 MG /DL OVER 100 ON GLUCOMETER. MAX DAILY USE 40 UNITS PER DAY - Blood-Glucose Meter,Continuous (DEXCOM G6 PATHOLOGY LABORATORY DIRECTOR) misc USE TO CHECK BLOOD SUGAR AT LEAST 4 TIMES DAILY - atorvastatin (LIPITOR) 20 mg tablet Take 1 tablet by mouth daily at bedtime. - Blood-Glucose Transmitter (DEXCOM G6 TRANSMITTER) mesfin Apply new transmitter every 90 days. Clean transmitter with an alcohol swab with each sensor change. - Blood-Glucose Sensor (DEXCOM G6 SENSOR) mesfin Apply new sensor every ten (10) days to abdomen. - VITAMIN D-3 10 mcg (400 unit) tab Take 2 capsules by mouth every afternoon. - levonorgestrel (MIRENA) 21 mcg/24 hr (8 yrs) 52 mg IUD 1 Each by INTRAUTERINE route one time only. - Cholecalciferol, Vitamin D3, (VITAMIN D-3) 50 mcg (2,000 unit) cap Take 2 capsules by mouth once daily. - Insulin [place], Disposable, 32 gauge x 5/32 four times daily. USE DIRECTED. Problem List As Of Date 07/14/2025 Noted Resolved Controlled type 2 diabetes mellitus without com*03/11/2024 IUD (intrauterine device) in place [Z97.5] 03/11/2024 Lung nodules [R91.8] 03/11/2024 Primary hypertension [I10] 03/11/2024 Obstructive sleep apnea [G47.33] 04/08/2024 Pulmonary embolism (HCC) [I26.99] 2020 Morbid obesity (HCC) [E66.01] 05/07/2024 Dyslipidemia [E78.5] 05/07/2024 VTE (venous thromboembolism) [I82.90] 05/07/2024 Numbness of right hand [R20.0] 10/07/2024 Letter Text Encounter Status:Closed by AMBAR WHITE on 07/14/25 [facility] 07-13-2025 Telephone encounter Note pharmacy electronically requesting refills as follows: Last seen 10/07/24 . Last refill 04/08/24 . Requested Prescriptions Pending Prescriptions Disp Refills ergocalciferol 50,000 unit capsule (VITAMIN D2, DRISDOL) [Pharmacy Med Name: Vitamin D (Ergocalciferol) 1.25 MG (20981 UT) Oral Capsule] 4 capsule 0 Sig: Take 1 capsule by mouth once a week Please review and advise. Andres Eaton MA [facility] 07-13-2025 Miscellaneous Notes pharmacy electronically requesting refills as follows: Last seen 10/07/24 . Last refill 04/08/24 . Requested Prescriptions Pending Prescriptions Disp Refills ergocalciferol 50,000 unit capsule (VITAMIN D2, DRISDOL) [Pharmacy Med Name: Vitamin D (Ergocalciferol) 1.25 MG (59597 UT) Oral Capsule] 4 capsule 0 Sig: Take 1 capsule by mouth once a week Please review and advise. Andres Eaton MA documented in this encounter [facility] 06-11-2025 Telephone encounter Note pharm requesting refills: Last office visit 10/07/2024. Last refill 03/03/2025 except vitamin d last filled 08/04/2024 .nov na Requested Prescriptions Pending Prescriptions Disp Refills carvedilol (COREG) 6.25 mg tablet [Pharmacy Med Name: Carvedilol 6.25 MG Oral Tablet] 180 tablet 0 Sig: TAKE 1 TABLET BY MOUTH EVERY 12 HOURS furosemide (LASIX) 20 mg tablet [Pharmacy Med Name: Furosemide 20 MG Oral Tablet] 90 tablet 0 Sig: TAKE 1 TABLET BY MOUTH ONCE DAILY EVERY AFTERNOON lisinopril (ZESTRIL) 10 mg tablet [Pharmacy Med Name: Lisinopril 10 MG Oral Tablet] 180 tablet 0 Sig: TAKE 1 TABLET BY MOUTH EVERY 12 HOURS metFORMIN (GLUCOPHAGE) 500 mg tablet [Pharmacy Med Name: metFORMIN HCl 500 MG Oral Tablet] 180 tablet 0 Sig: TAKE 1 TABLET BY MOUTH EVERY 12 HOURS ergocalciferol 50,000 unit capsule (VITAMIN D2, DRISDOL) [Pharmacy Med Name: Vitamin D (Ergocalciferol) 1.25 MG (79671 UT) Oral Capsule] 4 capsule 0 Sig: Take 1 capsule by mouth once a week Please review and advise. Lorraine Olea MA [facility] 06-11-2025 Miscellaneous Notes pharm requesting refills: Last office visit 10/07/2024. Last refill 03/03/2025 except vitamin d last filled 08/04/2024 .nov na Requested Prescriptions Pending Prescriptions Disp Refills carvedilol (COREG) 6.25 mg tablet [Pharmacy Med Name: Carvedilol 6.25 MG Oral Tablet] 180 tablet 0 Sig: TAKE 1 TABLET BY MOUTH EVERY 12 HOURS furosemide (LASIX) 20 mg tablet [Pharmacy Med Name: Furosemide 20 MG Oral Tablet] 90 tablet 0 Sig: TAKE 1 TABLET BY MOUTH ONCE DAILY EVERY AFTERNOON lisinopril (ZESTRIL) 10 mg tablet [Pharmacy Med Name: Lisinopril 10 MG Oral Tablet] 180 tablet 0 Sig: TAKE 1 TABLET BY MOUTH EVERY 12 HOURS metFORMIN (GLUCOPHAGE) 500 mg tablet [Pharmacy Med Name: metFORMIN HCl 500 MG Oral Tablet] 180 tablet 0 Sig: TAKE 1 TABLET BY MOUTH EVERY 12 HOURS ergocalciferol 50,000 unit capsule (VITAMIN D2, DRISDOL) [Pharmacy Med Name: Vitamin D (Ergocalciferol) 1.25 MG (07406 UT) Oral Capsule] 4 capsule 0 Sig: Take 1 capsule by mouth once a week Please review and advise. Lorraine Olea MA documented in this encounter [facility] 05-12-2025 Note Patient Outreach (AG FAMPLE) CYNTHIA BLANCO ([id number]) 1980 F [place] Date Time Provider Department 05/12/25 DONNA WILLIAM During your visit today, we recorded the following information about you: Allergies As of Date: 05/12/2025 Noted Allergy Reaction CLARITIN (LORATADINE) 02/26/2024 14 - Other: See Comments Comments: Lymph nodes swell Date Reviewed: 10/07/2024 Reviewed by: Lorraine Olea MA - Fully Assessed Visit Diagnosis:Encounter for screening mammogram for breast cancer [Z12.31] Order(s):[facility] SCREENING [facility]UTH [[id number]] Order #: [id number] FUTURE Prescriptions as of 06/12/2025 - carvedilol (COREG) 6.25 mg tablet TAKE 1 TABLET BY MOUTH EVERY 12 HOURS - furosemide (LASIX) 20 mg tablet TAKE 1 TABLET BY MOUTH ONCE DAILY EVERY AFTERNOON - lisinopril (ZESTRIL) 10 mg tablet TAKE 1 TABLET BY MOUTH EVERY 12 HOURS - metFORMIN (GLUCOPHAGE) 500 mg tablet TAKE 1 TABLET BY MOUTH EVERY 12 HOURS - ergocalciferol 50,000 unit capsule (VITAMIN D2, DRISDOL) Take 1 capsule by mouth once a week - insulin glargine-yfgn (SEMGLEE) 100 unit/mL (3 mL) insulin pen Inject 15 Units subcutaneously daily at bedtime. - insulin aspart U-100 (NOVOLOG FLEXPEN U-100 INSULIN) 100 unit/mL (3 mL) INJECT 3 UNITS AT EACH MEAL PLUS 1 UNIT FOR EVERY 20 MG /DL OVER 100 ON GLUCOMETER. MAX DAILY USE 40 UNITS PER DAY - Blood-Glucose Meter,Continuous (DEXCOM G6 PATHOLOGY LABORATORY DIRECTOR) [facility] [place] TO CHECK BLOOD SUGAR AT LEAST 4 TIMES DAILY - atorvastatin (LIPITOR) 20 mg tablet Take 1 tablet by mouth daily at bedtime. - potassium chloride (K-TAB) 10 mEq tablet Take 1 tablet by mouth every afternoon. - Blood-Glucose Transmitter (DEXCOM G6 TRANSMITTER) mesfin Apply new transmitter every 90 days. Clean transmitter with an alcohol swab with each sensor change. - Blood-Glucose Sensor (DEXCOM G6 SENSOR) mesfin Apply new sensor every ten (10) days to abdomen. - VITAMIN D-3 10 mcg (400 unit) tab Take 2 capsules by mouth every afternoon. - levonorgestrel (MIRENA) 21 mcg/24 hr (8 yrs) 52 mg IUD 1 Each by INTRAUTERINE route one time only. - Cholecalciferol, Vitamin D3, (VITAMIN D-3) 50 mcg (2,000 unit) cap Take 2 capsules by mouth once daily. - Insulin [place], Disposable, 32 gauge x four times daily. USE DIRECTED. Problem List As Of Date 05/12/2025 Noted Resolved Controlled type 2 diabetes mellitus without com*03/11/2024 IUD (intrauterine device) in place [Z97.5] 03/11/2024 Lung nodules [R91.8] 03/11/2024 Primary hypertension [I10] 03/11/2024 Obstructive sleep apnea [G47.33] 04/08/2024 Pulmonary embolism (HCC) [I26.99] 2020 Morbid obesity (HCC) [E66.01] 05/07/2024 Dyslipidemia [E78.5] 05/07/2024 VTE (venous thromboembolism) [I82.90] 05/07/2024 Numbness of right hand [R20.0] 10/07/2024 Encounter Status:Closed by [employer]DEONTE on 06/12/25 [facility] 03-11-2025 Telephone encounter Note Pharmacy requesting refills: Last office visit 10/07/2024. Last refill 01/07/2025. Requested Prescriptions Pending Prescriptions Disp Refills insulin glargine-yfgn (SEMGLEE) 100 unit/mL (3 mL) insulin pen 3 mL 11 Please review and advise. Lorraine Olea MA [facility] 03-11-2025 Miscellaneous Notes Pharmacy requesting refills: Last office visit 10/07/2024. Last refill 01/07/2025. Requested Prescriptions Pending Prescriptions Disp Refills insulin glargine-yfgn (SEMGLEE) 100 unit/mL (3 mL) insulin pen 3 mL 11 Please review and advise. Lorraine Olea MA documented in this encounter [facility] 03-02-2025 Telephone encounter Note pharmacy electronically requesting refills as follows: Last seen 10/07/24 . Last refill all 12/23/24 . Requested Prescriptions Pending Prescriptions Disp Refills carvedilol (COREG) 6.25 mg tablet [Pharmacy Med Name: Carvedilol 6.25 MG Oral Tablet] 180 tablet 0 Sig: TAKE 1 TABLET BY MOUTH EVERY 12 HOURS furosemide (LASIX) 20 mg tablet [Pharmacy Med Name: Furosemide 20 MG Oral Tablet] 90 tablet 0 Sig: TAKE ONE TABLET BY MOUTH EVERY AFTERNOON lisinopril (ZESTRIL) 10 mg tablet [Pharmacy Med Name: Lisinopril 10 MG Oral Tablet] 180 tablet 0 Sig: TAKE 1 TABLET BY MOUTH EVERY 12 HOURS Please review and advise. Andres Eaton MA T [facility] 03-02-2025 Telephone encounter Note pharmacy electronically requesting refills as follows: Last seen 10/07/24 . Last refill both 12/23/24 . Requested Prescriptions Pending Prescriptions Disp Refills lisinopril (ZESTRIL) 10 mg tablet [Pharmacy Med Name: Lisinopril 10 MG Oral Tablet] 180 tablet 0 Sig: TAKE 1 TABLET BY MOUTH EVERY 12 HOURS metFORMIN (GLUCOPHAGE) 500 mg tablet [Pharmacy Med Name: metFORMIN HCl 500 MG Oral Tablet] 180 tablet 0 Sig: TAKE 1 TABLET BY MOUTH EVERY 12 HOURS Please review and advise. Andres Eaton MA T [facility] 03-02-2025 Miscellaneous Notes pharmacy electronically requesting refills as follows: Last seen 10/07/24 . Last refill both 12/23/24 . Requested Prescriptions Pending Prescriptions Disp Refills lisinopril (ZESTRIL) 10 mg tablet [Pharmacy Med Name: Lisinopril 10 MG Oral Tablet] 180 tablet 0 Sig: TAKE 1 TABLET BY MOUTH EVERY 12 HOURS metFORMIN (GLUCOPHAGE) 500 mg tablet [Pharmacy Med Name: metFORMIN HCl 500 MG Oral Tablet] 180 tablet 0 Sig: TAKE 1 TABLET BY MOUTH EVERY 12 HOURS Please review and advise. Andres Eaton MA documented in this encounter [facility] 03-02-2025 Miscellaneous Notes pharmacy electronically requesting refills as follows: Last seen 10/07/24 . Last refill all 12/23/24 . Requested Prescriptions Pending Prescriptions Disp Refills carvedilol (COREG) 6.25 mg tablet [Pharmacy Med Name: Carvedilol 6.25 MG Oral Tablet] 180 tablet 0 Sig: TAKE 1 TABLET BY MOUTH EVERY 12 HOURS furosemide (LASIX) 20 mg tablet [Pharmacy Med Name: Furosemide 20 MG Oral Tablet] 90 tablet 0 Sig: TAKE ONE TABLET BY MOUTH EVERY AFTERNOON lisinopril (ZESTRIL) 10 mg tablet [Pharmacy Med Name: Lisinopril 10 MG Oral Tablet] 180 tablet 0 Sig: TAKE 1 TABLET BY MOUTH EVERY 12 HOURS Please review and advise. Andres Eaton MA documented in this encounter [facility] 01-07-2025 Telephone encounter Note Patient is requesting pens. Please send. Thank you. Lorraine Olea MA [facility] 01-07-2025 Miscellaneous Notes Patient is requesting pens. Please send. Thank you. Lorraine Olea MA Please call Cynthia and ask if she want a vial or a pen Thank you Donna William APRN.JHONNY Pharmacy comment: did they want vial or pen. previous were pens. documented in this encounter [facility] 01-07-2025 Telephone encounter Note Please call Cynthia and ask if she want a vial or a pen Thank you Donna William APRN.CNP [facility] 01-05-2025 Telephone encounter Note New Rx sent [facility] 01-05-2025 Miscellaneous Notes New Rx sent [facility] on stating they need you to remove dispense as written on th novolog flex pen. They said it will be cheaper for patient to get generic. Lorraine Olea MA documented in this encounter [facility] 01-05-2025 Telephone encounter Note [facility] on stating they need you to remove dispense as written on th novolog flex pen. They said it will be cheaper for patient to get generic. Lorraine Olea MA [facility] 01-05-2025 Telephone encounter Note Pharmacy comment: did they want vial or pen. previous were pens. [facility] 01-05-2025 Telephone encounter Note Pharmacy comment: [facility]. the patient doesn't have insurance. [facility] 01-05-2025 Miscellaneous Notes Pharmacy comment: [facility]. the patient doesn't have insurance. documented in this encounter [facility] 01-02-2025 Telephone encounter Note Patient Comment: Please send over a generic for this prescription. I am having to pay out of pocket for my prescriptions. Please disregard last request. [facility] 01-02-2025 Miscellaneous Notes Patient Comment: Please send over a generic for this prescription. I am having to pay out of pocket for my prescriptions. Please disregard last request. documented in this encounter [facility] 01-02-2025 Telephone encounter Note patient electronically requesting refills as follows: Last seen 10/07/24 . Last refill was 12/27/24 for brand and patient would like generic sent . Requested Prescriptions Pending Prescriptions Disp Refills NOVOLOG FLEXPEN U-100 INSULIN 100 unit/mL (3 mL) 36 mL 1 Sig: INJECT 3 UNITS AT EACH MEAL PLUS 1 UNIT FOR EVERY 20 MG /DL OVER 100 ON GLUCOMETER. MAX DAILY USE 40 UNITS PER DAY Please review and advise. Andres Eaton MA [facility] 01-02-2025 Miscellaneous Notes patient electronically requesting refills as follows: Last seen 10/07/24 . Last refill was 12/27/24 for brand and patient would like generic sent . Requested Prescriptions Pending Prescriptions Disp Refills NOVOLOG FLEXPEN U-100 INSULIN 100 unit/mL (3 mL) 36 mL 1 Sig: INJECT 3 UNITS AT EACH MEAL PLUS 1 UNIT FOR EVERY 20 MG /DL OVER 100 ON GLUCOMETER. MAX DAILY USE 40 UNITS PER DAY Please review and advise. Andres Eaton MA documented in this encounter [facility] 12-25-2024 Telephone encounter Note patient electronically requesting refills as follows: Last seen 10/07/24 . Last refills 07/14/24 . Requested Prescriptions Pending Prescriptions Disp Refills NOVOLOG FLEXPEN U-100 INSULIN 100 unit/mL (3 mL) 36 mL 1 Sig: INJECT 3 UNITS AT EACH MEAL PLUS 1 UNIT FOR EVERY 20 MG /DL OVER 100 ON GLUCOMETER. MAX DAILY USE 40 UNITS PER DAY atorvastatin (LIPITOR) 20 mg tablet 90 tablet 1 Sig: Take 1 tablet by mouth daily at bedtime. potassium chloride (K-TAB) 10 mEq tablet 90 tablet 1 Sig: Take 1 tablet by mouth every afternoon. metFORMIN (GLUCOPHAGE) 500 mg tablet 180 tablet 0 Sig: Take 1 tablet by mouth every 12 hours. furosemide (LASIX) 20 mg tablet 90 tablet 0 LANTUS SOLOSTAR U-100 INSULIN 100 unit/mL (3 mL) 27 mL 0 carvedilol (COREG) 6.25 mg tablet 180 tablet 0 Sig: Take 1 tablet by mouth every 12 hours. lisinopril (ZESTRIL) 10 mg tablet 180 tablet 0 Sig: Take 1 tablet by mouth every 12 hours. Please review and advise. Andres Eaton MA [facility] 12-25-2024 Miscellaneous Notes patient electronically requesting refills as follows: Last seen 10/07/24 . Last refills 07/14/24 . Requested Prescriptions Pending Prescriptions Disp Refills NOVOLOG FLEXPEN U-100 INSULIN 100 unit/mL (3 mL) 36 mL 1 Sig: INJECT 3 UNITS AT EACH MEAL PLUS 1 UNIT FOR EVERY 20 MG /DL OVER 100 ON GLUCOMETER. MAX DAILY USE 40 UNITS PER DAY atorvastatin (LIPITOR) 20 mg tablet 90 tablet 1 Sig: Take 1 tablet by mouth daily at bedtime. potassium chloride (K-TAB) 10 mEq tablet 90 tablet 1 Sig: Take 1 tablet by mouth every afternoon. metFORMIN (GLUCOPHAGE) 500 mg tablet 180 tablet 0 Sig: Take 1 tablet by mouth every 12 hours. furosemide (LASIX) 20 mg tablet 90 tablet 0 LANTUS SOLOSTAR U-100 INSULIN 100 unit/mL (3 mL) 27 mL 0 carvedilol (COREG) 6.25 mg tablet 180 tablet 0 Sig: Take 1 tablet by mouth every 12 hours. lisinopril (ZESTRIL) 10 mg tablet 180 tablet 0 Sig: Take 1 tablet by mouth every 12 hours. Please review and advise. Andres Eaton MA documented in this encounter [facility] 12-25-2024 Telephone encounter Note pharmacy electronically requesting refills as follows: Last seen 10/07/24 . Last refill 10/07/24 . Requested Prescriptions Pending Prescriptions Disp Refills Blood-Glucose Meter,Continuous (DEXCOM G6 PATHOLOGY LABORATORY DIRECTOR) misc [Pharmacy Med Name: DEXCOM G6 PATHOLOGY LABORATORY DIRECTOR MIS] 1 Each 0 Sig: USE TO CHECK BLOOD SUGAR AT LEAST 4 TIMES DAILY Please review and advise. Andres Eaton MA [facility] 12-25-2024 Miscellaneous Notes pharmacy electronically requesting refills as follows: Last seen 10/07/24 . Last refill 10/07/24 . Requested Prescriptions Pending Prescriptions Disp Refills Blood-Glucose Meter,Continuous (DEXCOM G6 PATHOLOGY LABORATORY DIRECTOR) misc [Pharmacy Med Name: DEXCOM G6 PATHOLOGY LABORATORY DIRECTOR MIS] 1 Each 0 Sig: USE TO CHECK BLOOD SUGAR AT LEAST 4 TIMES DAILY Please review and advise. Andres Eaton MA documented in this encounter [facility] 12-22-2024 Telephone encounter Note pharm requesting refills: Last office visit 10/07/2024. Last refill 07/14/2024 . Requested Prescriptions Pending Prescriptions Disp Refills metFORMIN (GLUCOPHAGE) 500 mg tablet [Pharmacy Med Name: metFORMIN HCl 500 MG Oral Tablet] 180 tablet 0 Sig: TAKE 1 TABLET BY MOUTH EVERY 12 HOURS furosemide (LASIX) 20 mg tablet [Pharmacy Med Name: Furosemide 20 MG Oral Tablet] 90 tablet 0 Sig: TAKE ONE TABLET BY MOUTH EVERY AFTERNOON LANTUS SOLOSTAR U-100 INSULIN 100 unit/mL (3 mL) [Pharmacy Med Name: Lantus SoloStar 100 UNIT/ML Subcutaneous Solution Pen-injector] 27 mL 0 Sig: INJECT 15 UNITS SUBCUTANEOUSLY TWICE DAILY carvedilol (COREG) 6.25 mg tablet [Pharmacy Med Name: Carvedilol 6.25 MG Oral Tablet] 180 tablet 0 Sig: TAKE 1 TABLET BY MOUTH EVERY 12 HOURS lisinopril (ZESTRIL) 10 mg tablet [Pharmacy Med Name: Lisinopril 10 MG Oral Tablet] 180 tablet 0 Sig: TAKE 1 TABLET BY MOUTH EVERY 12 HOURS Please review and advise. Lorraine Olea MA [facility] 12-22-2024 Miscellaneous Notes pharm requesting refills: Last office visit 10/07/2024. Last refill 07/14/2024 . Requested Prescriptions Pending Prescriptions Disp Refills metFORMIN (GLUCOPHAGE) 500 mg tablet [Pharmacy Med Name: metFORMIN HCl 500 MG Oral Tablet] 180 tablet 0 Sig: TAKE 1 TABLET BY MOUTH EVERY 12 HOURS furosemide (LASIX) 20 mg tablet [Pharmacy Med Name: Furosemide 20 MG Oral Tablet] 90 tablet 0 Sig: TAKE ONE TABLET BY MOUTH EVERY AFTERNOON LANTUS SOLOSTAR U-100 INSULIN 100 unit/mL (3 mL) [Pharmacy Med Name: Lantus SoloStar 100 UNIT/ML Subcutaneous Solution Pen-injector] 27 mL 0 Sig: INJECT 15 UNITS SUBCUTANEOUSLY TWICE DAILY carvedilol (COREG) 6.25 mg tablet [Pharmacy Med Name: Carvedilol 6.25 MG Oral Tablet] 180 tablet 0 Sig: TAKE 1 TABLET BY MOUTH EVERY 12 HOURS lisinopril (ZESTRIL) 10 mg tablet [Pharmacy Med Name: Lisinopril 10 MG Oral Tablet] 180 tablet 0 Sig: TAKE 1 TABLET BY MOUTH EVERY 12 HOURS Please review and advise. Lorraine Olea MA documented in this encounter [facility] 10-07-2024 Note HNO ID: [id number] Author: DONNA WILLIAM APRN.OUTSIDE PROPERTY AGENT Service: ? Author Type: Nurse Practitioner Type: Progress Notes Filed: 10/07/2024 09:07 Note Text: Subjective Cynthia Blanco is a 43 year old female here today for right hand numbness follow-up. I reviewed past medical, surgical, social, and family histories today and updated chart. Allergies, chronic medications, and supplements were also reviewed. HPI Her EMG was cancelled because there wasn't a doctor available that day She needs to reschedule it Right hand - middle and ring fingers completely numb and pinky is also getting numb She has previous hand injury about 20 years ago - diagnosed with tendonitis Right hand cramps up and makes a tight fist and cannot open the hand up Middle finger will get stuck or become distorted. This morning had pain in the right index finger that radiates up the arm She is wondering if she may have pinched shoulder She saw the neurology [facility] [employer] Chelsea Ricks on 09/30/24 - had all the sensation testing done and she could feel the needle prick. Recommended wrist brace. She checked with her insurance and they will cover a CGM - MediCard [place] or Dexcom G6 PAST MEDICAL HISTORY Diagnosis Date Lung nodules Obstructive sleep apnea Optic disc pallor, bilateral 1995 Previous hx of IIH Primary hypertension PTSD (post-traumatic stress disorder) Pulmonary embolism (HCC) 2020 Type 2 diabetes (HCC) PAST SURGICAL HISTORY Procedure Laterality Date HYSTEROSCOPY, DIAGNOSTIC (SEPARATE 12/2022 iud inserted when there was no prior IUD found INSERTION OF IUD 12/2022 MIrena TONSILLECTOMY HX 1989 ALLERGIES Claritin [Loratadine] MEDICATIONS ergocalciferol 50,000 unit capsule (VITAMIN D2, DRISDOL) Take 1 capsule by mouth one time a week. NOVOLOG FLEXPEN U-100 INSULIN 100 unit/mL (3 mL) INJECT 3 UNITS AT EACH MEAL PLUS 1 UNIT FOR EVERY 20 MG /DL OVER 100 ON GLUCOMETER. MAX DAILY USE 40 UNITS PER DAY LANTUS SOLOSTAR U-100 INSULIN 100 unit/mL (3 mL) Inject 15 Units subcutaneously two times a day. atorvastatin (LIPITOR) 20 mg tablet Take 1 tablet by mouth daily at bedtime. carvedilol (COREG) 6.25 mg tablet Take 1 tablet by mouth every 12 hours. furosemide (LASIX) 20 mg tablet Take 1 tablet by mouth every afternoon. lisinopril (ZESTRIL) 10 mg tablet Take 1 tablet by mouth every 12 hours. metFORMIN (GLUCOPHAGE) 500 mg tablet Take 1 tablet by mouth every 12 hours. potassium chloride (K-TAB) 10 mEq tablet Take 1 tablet by mouth every afternoon. VITAMIN D-3 10 mcg (400 unit) tab Take 2 capsules by mouth every afternoon. levonorgestrel (MIRENA) 21 mcg/24 hr (8 yrs) 52 mg IUD 1 Each by INTRAUTERINE route one time only. Cholecalciferol, Vitamin D3, (VITAMIN D-3) 50 mcg (2,000 unit) cap Take 2 capsules by mouth once daily. insulin needles, DISPOSABLE, (LITE TOUCH INSULIN PEN NEEDLES) 31 gauge x 5/16 1 Each five times a day. blood sugar diagnostic (BLOOD GLUCOSE TEST) test strip 1 Strip five times a day. Use as instructed Insulin [place], Disposable, 32 gauge x 5/32 four times daily. USE DIRECTED. FAMILY HISTORY Problem Relation Age of Onset Diabetes Father Macular Degen Paternal Aunt Diabetes Paternal Aunt great Drug abuse Half-sister No Ocular Disease No Family History Social History Tobacco Use Smoking status: Never Smokeless tobacco: Never Vaping Use Vaping status: Former Substances: Nicotine Devices: Pre-filled or refillable cartridge Substance Use Topics Alcohol use: Yes Comment: occ Drug use: Never Review of Systems Constitutional: Negative for appetite change, chills, fatigue, fever and unexpected weight change. HENT: Negative for congestion, ear pain, rhinorrhea and sore throat. Eyes: Negative for pain, discharge, itching and visual disturbance. Respiratory: Negative for cough, shortness of breath and wheezing. Cardiovascular: Negative for chest pain, palpitations and leg swelling. Gastrointestinal: Negative for abdominal pain, constipation, diarrhea, nausea and vomiting. Genitourinary: Negative for difficulty urinating. Musculoskeletal: Positive for arthralgias. Skin: Negative for rash. Neurological: Positive for weakness and numbness. Negative for dizziness, tremors and headaches. Psychiatric/Behavioral: Negative for dysphoric mood and sleep disturbance. The patient is not nervous/anxious. Objective BP 143/93 Pulse 70 Temp 98.3 Ht 5' 6.5 (1.69m) Wt 421 lb (191.0kg) SpO2 97% BMI 66.94 kg/(m2). Physical Exam Constitutional: General: She is not in acute distress. Appearance: Normal appearance. HENT: Head: Normocephalic and atraumatic. Mouth/Throat: Lips: [place]. Eyes: General: Lids are normal. Extraocular Movements: Extraocular movements intact. Conjunctiva/sclera: Conjunctivae normal. Pupils: Pupils are equal. Cardiovascular: Rate and Rhythm: Normal rate and regular rhythm. Heart sounds: Normal hea (more content not included)... [facility] 10-07-2024 History of Presen t illness Narrative Subjective Cynthia Blanco is a 43 year old female here today for right hand numbness follow-up. I reviewed past medical, surgical, social, and family histories today and updated chart. Allergies, chronic medications, and supplements were also reviewed. HPI Her EMG was cancelled because there wasn't a doctor available that day She needs to reschedule it Right hand - middle and ring fingers completely numb and pinky is also getting numb She has previous hand injury about 20 years ago - diagnosed with tendonitis Right hand cramps up and makes a tight fist and cannot open the hand up Middle finger will get stuck or become distorted. This morning had pain in the right index finger that radiates up the arm She is wondering if she may have pinched shoulder She saw the neurology [employer] Chelsea Ricks on 09/30/24 - had all the sensation testing done and she could feel the needle prick. Recommended wrist brace. She checked with her insurance and they will cover a CGM - Freestyle Lamont or Dexcom G6 PAST MEDICAL HISTORY Diagnosis Date Lung nodules Obstructive sleep apnea Optic disc pallor, bilateral 1995 Previous hx of IIH Primary hypertension PTSD (post-traumatic stress disorder) Pulmonary embolism (HCC) 2020 Type 2 diabetes (HCC) PAST SURGICAL HISTORY Procedure Laterality Date HYSTEROSCOPY, DIAGNOSTIC (SEPARATE 12/2022 iud inserted when there was no prior IUD found INSERTION OF IUD 12/2022 MIrena TONSILLECTOMY HX 1989 ALLERGIES Claritin [Loratadine] MEDICATIONS ergocalciferol 50,000 unit capsule (VITAMIN D2, DRISDOL) Take 1 capsule by mouth one time a week. NOVOLOG FLEXPEN U-100 INSULIN 100 unit/mL (3 mL) INJECT 3 UNITS AT EACH MEAL PLUS 1 UNIT FOR EVERY 20 MG /DL OVER 100 ON GLUCOMETER. MAX DAILY USE 40 UNITS PER DAY LANTUS SOLOSTAR U-100 INSULIN 100 unit/mL (3 mL) Inject 15 Units subcutaneously two times a day. atorvastatin (LIPITOR) 20 mg tablet Take 1 tablet by mouth daily at bedtime. carvedilol (COREG) 6.25 mg tablet Take 1 tablet by mouth every 12 hours. furosemide (LASIX) 20 mg tablet Take 1 tablet by mouth every afternoon. lisinopril (ZESTRIL) 10 mg tablet Take 1 tablet by mouth every 12 hours. metFORMIN (GLUCOPHAGE) 500 mg tablet Take 1 tablet by mouth every 12 hours. potassium chloride (K-TAB) 10 mEq tablet Take 1 tablet by mouth every afternoon. VITAMIN D-3 10 mcg (400 unit) tab Take 2 capsules by mouth every afternoon. levonorgestrel (MIRENA) 21 mcg/24 hr (8 yrs) 52 mg IUD 1 Each by INTRAUTERINE route one time only. Cholecalciferol, Vitamin D3, (VITAMIN D-3) 50 mcg (2,000 unit) cap Take 2 capsules by mouth once daily. insulin needles, DISPOSABLE, (LITE TOUCH INSULIN PEN NEEDLES) 31 gauge x 5/16 1 Each five times a day. blood sugar diagnostic (BLOOD GLUCOSE TEST) test strip 1 Strip five times a day. Use as instructed Insulin [place], Disposable, 32 gauge x 5/32 four times daily. USE DIRECTED. FAMILY HISTORY Problem Relation Age of Onset Diabetes Father Macular Degen Paternal Aunt Diabetes Paternal Aunt great Drug abuse Half-sister No Ocular Disease No Family History Social History Tobacco Use Smoking status: Never Smokeless tobacco: Never Vaping Use Vaping status: Former Substances: Nicotine Devices: Pre-filled or refillable cartridge Substance Use Topics Alcohol use: Yes Comment: occ Drug use: Never Review of Systems Constitutional: Negative for appetite change, chills, fatigue, fever and unexpected weight change. HENT: Negative for congestion, ear pain, rhinorrhea and sore throat. Eyes: Negative for pain, discharge, itching and visual disturbance. Respiratory: Negative for cough, shortness of breath and wheezing. Cardiovascular: Negative for chest pain, palpitations and leg swelling. Gastrointestinal: Negative for abdominal pain, constipation, diarrhea, nausea and vomiting. Genitourinary: Negative for difficulty urinating. Musculoskeletal: Positive for arthralgias. Skin: Negative for rash. Neurological: Positive for weakness and numbness. Negative for dizziness, tremors and headaches. Psychiatric/Behavioral: Negative for dysphoric mood and sleep disturbance. The patient is not nervous/anxious. Objective BP 143/93 Pulse 70 Temp 98.3 Ht 5' 6.5 (1.69m) Wt 421 lb (191.0kg) SpO2 97% BMI 66.94 kg/(m^2). Physical Exam Constitutional: General: She is not in acute distress. Appearance: Normal appearance. HENT: Head: Normocephalic and atraumatic. Mouth/Throat: Lips: [place]. Eyes: General: Lids are normal. Extraocular Movements: Extraocular movements intact. Conjunctiva/sclera: Conjunctivae normal. Pupils: Pupils are equal. Cardiovascular: Rate and Rhythm: Normal rate and regular rhythm. Heart sounds: Normal heart sounds. No murmur heard. Pulmonary: Effort: Pulmonary effort is normal. No respiratory distress. Breath sounds: Normal breath sounds. Musculoskeletal: Right hand: No swelling or tenderness. Decreased sensation. Normal capillary refill. Normal pulse. Cervical back: Normal range of motion. Right lower leg: No edema. Left lower leg: No edema. Skin: General: Skin is warm and dry. Findings: No rash. Neurological: General: No focal deficit present. Mental Status: She is alert and oriented to person, place, and time. Cranial Nerves: No cranial nerve deficit. Motor: Motor function is intact. Coordination: Coordination normal. Gait: Gait is intact. Psychiatric: Attention and Perception: Attention and perception normal. Mood and Affect: Mood and affect normal. Behavior: Behavior normal. Behavior is cooperative. Latest Ref Rng 05/09/2024 07/02/2024 Iron 41 - 186 ug/dL 57 TIBC 232 - 386 ug/dL 301 Transferrin Saturation 15.0 - 57.0 % 18.9 Hemoglobin A1C 4.3 - 5.6 % 6.4 (H) Estimated Average Glucose mg/dL 137 Vitamin B1 (TDP), Whole Blood 84.3 - 213.3 nmol/L 181.4 Vitamin B12 232 - 1,245 pg/mL 360 ASSESSMENT/PLAN: 1. Numbness of right hand - ICD9: 782.0, ICD10: R20.0 (primary diagnosis) Patient will reschedule EMG 2. Controlled type 2 diabetes mellitus without complication, with long-term current use of insulin (HCC) - ICD9: 250.00, V58.67, ICD10: E11.9, Z79.4 Continue current medications - Lantus insulin 15 units BID, novolog insulin with meals With receiving insulin 4 times a day, CGM is a good idea, orders sent to pharmacy - DEXCOM G6 PATHOLOGY LABORATORY DIRECTOR - DEXCOM G6 TRANSMITTER DEVICE - DEXCOM G6 SENSOR DEVICE FU in November for diabetes visit, already scheduled Donna William APRN.OUTSIDE PROPERTY AGENT documented in this encounter [facility] 09-30-2024 History of Presen t illness Narrative Images from the original note were not included. [facility] for General Neurology Name: Cynthia Blanco Age: [age] year old Gender: female Primary Care Provider: Donna William APRN.OUTSIDE PROPERTY AGENT Consult requested for right hand numbness by Self. Recommendations will be communicated via shared medical record or US mail. Chief Complaint:New Patient 09/30/2024 - General Neurology, Chelsea Ricks APRN.OUTSIDE PROPERTY AGENT ASSESSMENT Patient presents today for complaints of right hand numbness and tingling that is constant throughout the day. Symptom onset a little over a year ago. Patient endorses a sharp pain that radiates up in to the forearm, particularly when she sleeps on her right side. Patient is being treated for her type 2 diabetes with oral medications and insulin regimen. Patient was able to get her HgbA1C down from 10 to 6.4 but denies any improvements in her symptoms. Patient denies any neck or back pain. Not currently on medications for symptom management. Wore wrist brace once during day, hindered mobility too much. Patient neurological exam was overall normal today. Patient positive for Phalen's test in right hand. Patient was educated on the importance of wearing wrist brace at night as opposed to during the day at work. Patient will schedule EMG today and will follow up with results. PLAN - EMG - Hard wrist brace nightly, Patient was given brace at this visit. Encounter Diagnosis ICD-10-CM 1. Numbness and tingling in right hand R20.0 R20.2 2. Pain in right hand M79.641 Return if symptoms worsen or fail to improve. Chart, labs,and relevant images reviewed. HPI: This is a 43 year old female presenting with right hand numbness, history of lung nodules, JOSE ENRIQUE, HTN, PTSD, pulmonary embolism, type 2 DM. The numbness of tingling started two years ago, but progressively worsening since moving in June of 2023. Moved with boyfriend. Numbness and tingling throughout the whole right hand, also endorses numbness of left hand in just the fingertips. Numbness on the right hand starts in the fingertips states she has barely any strength even sometimes cannot open a pop bottle. Patient states she is having more decrease in ability to do her work. The numbness and tingling is constant nothing makes it worse or better. Numbness/tingling and sharp pain can radiate up in to the forearm, mostly occurs when laying on her right side. She has been managing her type 2 diabetes and has controlled her A1c from 10 down to 6.4 with no improvement in symptoms. States she tried a brace for her wrist at one time but found it difficult for work as she was only wearing it during the day. Hemoglobin A1C 6.4. B12 360, folate 4.1. EMG ordered, not yet completed. Neck pain? No Balance/dizziness? No Weakness? Yes, in the right hand. Denies weakness in all other limbs. Bladder/stool incontinence? No Headaches? No Visual change? No Numbness/tingling any other limbs? No. Review of Systems Constitutional: Negative. HENT: Negative. Eyes: Negative. Respiratory: Negative. Gastrointestinal: Negative. Neurological: Positive for weakness and numbness. In right handed. Noted numbness in left fingertips. ACTIVE PROBLEM LIST Controlled Type 2 Diabetes Mellitus Without Complication, With Long-Term Current Use of Insulin (Hcc) IUD (Intrauterine Device) in Place Lung Nodules Primary Hypertension Obstructive Sleep Apnea Pulmonary Embolism (Hcc) Morbid Obesity (Hcc) Dyslipidemia Vte (Venous Thromboembolism) PAST MEDICAL HISTORY Diagnosis Date Lung nodules Obstructive sleep apnea Optic disc pallor, bilateral 1995 Previous hx of IIH Primary hypertension PTSD (post-traumatic stress disorder) Pulmonary embolism (HCC) 2020 Type 2 diabetes (HCC) Medications: Reviewed ergocalciferol 50,000 unit capsule (VITAMIN D2, DRISDOL) Take 1 capsule by mouth one time a week. NOVOLOG FLEXPEN U-100 INSULIN 100 unit/mL (3 mL) INJECT 3 UNITS AT EACH MEAL PLUS 1 UNIT FOR EVERY 20 MG /DL OVER 100 ON GLUCOMETER. MAX DAILY USE 40 UNITS PER DAY LANTUS SOLOSTAR U-100 INSULIN 100 unit/mL (3 mL) Inject 15 Units subcutaneously two times a day. atorvastatin (LIPITOR) 20 mg tablet Take 1 tablet by mouth daily at bedtime. carvedilol (COREG) 6.25 mg tablet Take 1 tablet by mouth every 12 hours. furosemide (LASIX) 20 mg tablet Take 1 tablet by mouth every afternoon. lisinopril (ZESTRIL) 10 mg tablet Take 1 tablet by mouth every 12 hours. metFORMIN (GLUCOPHAGE) 500 mg tablet Take 1 tablet by mouth every 12 hours. potassium chloride (K-TAB) 10 mEq tablet Take 1 tablet by mouth every afternoon. VITAMIN D-3 10 mcg (400 unit) tab Take 2 capsules by mouth every afternoon. levonorgestrel (MIRENA) 21 mcg/24 hr (8 yrs) 52 mg IUD 1 Each by INTRAUTERINE route one time only. Cholecalciferol, Vitamin D3, (VITAMIN D-3) 50 mcg (2,000 unit) cap Take 2 capsules by mouth once daily. insulin needles, DISPOSABLE, (LITE TOUCH INSULIN PEN NEEDLES) 31 gauge x 5/16 1 Each five times a day. blood sugar diagnostic (BLOOD GLUCOSE TEST) test strip 1 Strip five times a day. Use as instructed Insulin [place], Disposable, 32 gauge x 5/32 four times daily. USE DIRECTED. ALLERGIES Allergen Reactions Claritin [Loratadin* Other: See Comments Lymph nodes swell FAMILY HISTORY Problem Relation Age of Onset Diabetes Father Macular Degen Paternal Aunt Diabetes Paternal Aunt great Drug abuse Half-sister No Ocular Disease No Family History PAST SURGICAL HISTORY Procedure Laterality Date HYSTEROSCOPY, DIAGNOSTIC (SEPARATE 12/2022 iud inserted when there was no prior IUD found INSERTION OF IUD 12/2022 MIrena TONSILLECTOMY HX 1989 SOCIAL HISTORY No social history on file. Tobacco Use: Low Risk (08/01/2024) Patient History Smoking Tobacco Use: Never Smokeless Tobacco Use: Never Passive Exposure: Not on file PHYSICAL EXAM 09/30/24 0909 BP: 122/78 Pulse: 70 Neurological Exam Mental Status Alert, fully oriented, attentive, with normal cognition, memory, speech and affect. Cranial Nerves Visual grider intact. Fundi with normal discs and vasculature. Pupils reactive. Extraocular movements conjugate and full. No ptosis. No nystagmus. Facial sensation intact. Face symmetric and strong. Palate and tongue normal. XI normal. Motor Examination and Coordination Motor examination with normal bulk, strength and tone. No drift. Normal rapid alternating movements and coordination. No adventitious movements or significant tremor. Reflexes Deep tendon reflexes graded by [facility] Deep Tendon Reflexes Right Left Biceps 2+ 2+ Triceps 2+ 2+ Brachioradialis 2+ 2+ Patellar 2+ 2+ Achilles 2+ 2+ Plantar Downgoing Downgoing Sensation Sensation intact to light touch, pinprick, proprioception and vibration. Gait Arises easily. Casual gait, tandem, and Romberg are normal. Can rise on heels and toes. Labs: Lab Results Component Value Date WBC 8.15 03/25/2024 HCT 44.2 03/25/2024 MCV 90.2 03/25/2024 PLT 248 03/25/2024 Lab Results Component Value Date HBA1C 6.4 07/02/2024 HBA1C 6.5 03/25/2024 Cholesterol, Total Date Value Ref Range Status 03/25/2024 170 <200 mg/dL Final Comment: <200 mg/dL, Desirable 200-239 mg/dL, Borderline high >239 mg/dL, High HDL Cholesterol Date Value Ref Range Status 03/25/2024 50 >39 mg/dL Final Comment: 40-59 mg/dL, Acceptable >59 mg/dL, High: Negative risk factor for coronary heart disease <40 mg/dL, Low: Positive risk factor for coronary heart disease LDL Cholesterol Date Value Ref Range Status 03/25/2024 98 <100 mg/dL Final Comment: <100 mg/dL, Optimal 100-129 mg/dL, Near optimal/above optimal 130-159 mg/dL, Borderline high 160-189 mg/dL, High >189 mg/dL, Very high Secondary prevention optimal LDL Cholesterol levels are recommended to be < 70 mg/dL Triglyceride Date Value Ref Range Status 03/25/2024 109 <150 mg/dL Final Comment: <150 mg/dL, Normal 150-199 mg/dL, Borderline high 200-499 mg/dL, High >499 mg/dL, Very high Radiology: MRI Head/Brain - Last 2 Impressions No resulted procedures found. , MRA Head and/or Neck - Last 2 Impressions No resulted procedures found. , MRI Spine - Last 2 Impressions No resulted procedures found. , CT Head/Brain - Last 2 Impressions No resulted procedures found. , and CTA Head and/or Neck - Last 2 No resulted procedures found. This note was dictated using Immy speech recognition software and may contain some errors that were a result of the program not accurately transcribing what was dictated, despite efforts to make corrections. Note that unless urgent, test and MRI results will be discussed at next follow-up visit. PROMIS (Patient-Reported Outcomes Measurement Information System) is a set of person-centered measures that evaluates and monitors physical, social, and emotional health. It can be used with the general population and with individuals living with chronic conditions. PROMIS 10: PHYSICAL AND MENTAL HEALTH: Global Physical Health T Score: 44.9 Global Physical Health Percentile: 31 Global Mental Health T Score: 38.8 Global Mental Health Percentile: 13 09/24/2024 PHQ-9 PHQ-2 Score 0 PHQ-9 Score 0 Medical Decision Making: Problems: Moderate: 2+ stable chronic illnesses and New problem with uncertain prognosis Data: Unique source(s) for external note(s) reviewed: 1 Assessment requiring an independent historian(s) Risk: Moderate: Moderate risk from testing/treatment Medical Decision Making Level: 4 - Moderate documented in this encounter [facility] 09-30-2024 Note HNO ID: [id number] Author: CHELSEA RICKS APRN.JHONNY Service: ? Author Type: Nurse Practitioner Type: Progress Notes Filed: 09/30/2024 10:05 Note Text: [facility] for General Neurology Name: Cynthia Blanco Age: [age] year old Gender: female Primary Care Provider: Donna William APRN.OUTSIDE PROPERTY AGENT Consult requested for right hand numbness by Self. Recommendations will be communicated via shared medical record or US mail. Chief Complaint:New Patient 09/30/2024 - General NeurologyChelsea APRN.CNP ASSESSMENT Patient presents today for complaints of right hand numbness and tingling that is constant throughout the day. Symptom onset a little over a year ago. Patient endorses a sharp pain that radiates up in to the forearm, particularly when she sleeps on her right side. Patient is being treated for her type 2 diabetes with oral medications and insulin regimen. Patient was able to get her HgbA1C down from 10 to 6.4 but denies any improvements in her symptoms. Patient denies any neck or back pain. Not currently on medications for symptom management. Wore wrist brace once during day, hindered mobility too much. Patient neurological exam was overall normal today. Patient positive for Phalen's test in right hand. Patient was educated on the importance of wearing wrist brace at night as opposed to during the day at work. Patient will schedule EMG today and will follow up with results. PLAN - EMG - Hard wrist brace nightly, Patient was given brace at this visit. Encounter Diagnosis ICD-10-CM 1. Numbness and tingling in right hand R20.0 R20.2 2. Pain in right hand M79.641 Return if symptoms worsen or fail to improve. Chart, labs,and relevant images reviewed. HPI: This is a 43 year old female presenting with right hand numbness, history of lung nodules, JOSE ENRIQUE, HTN, PTSD, pulmonary embolism, type 2 DM. The numbness of tingling started two years ago, but progressively worsening since moving in June of 2023. Moved with boyfriend. Numbness and tingling throughout the whole right hand, also endorses numbness of left hand in just the fingertips. Numbness on the right hand starts in the fingertips states she has barely any strength even sometimes cannot open a pop bottle. Patient states she is having more decrease in ability to do her work. The numbness and tingling is constant nothing makes it worse or better. Numbness/tingling and sharp pain can radiate up in to the forearm, mostly occurs when laying on her right side. She has been managing her type 2 diabetes and has controlled her A1c from 10 down to 6.4 with no improvement in symptoms. States she tried a brace for her wrist at one time but found it difficult for work as she was only wearing it during the day. Hemoglobin A1C 6.4. B12 360, folate 4.1. EMG ordered, not yet completed. Neck pain? No Balance/dizziness? No Weakness? Yes, in the right hand. Denies weakness in all other limbs. Bladder/stool incontinence? No Headaches? No Visual change? No Numbness/tingling any other limbs? No. Review of Systems Constitutional: Negative. HENT: Negative. Eyes: Negative. Respiratory: Negative. Gastrointestinal: Negative. Neurological: Positive for weakness and numbness. In right handed. Noted numbness in left fingertips. ACTIVE PROBLEM LIST Controlled Type 2 Diabetes Mellitus Without Complication, With Long-Term Current Use of Insulin (Hcc) IUD (Intrauterine Device) in Place Lung Nodules Primary Hypertension Obstructive Sleep Apnea Pulmonary Embolism (Hcc) Morbid Obesity (Hcc) Dyslipidemia Vte (Venous Thromboembolism) PAST MEDICAL HISTORY Diagnosis Date Lung nodules Obstructive sleep apnea Optic disc pallor, bilateral 1995 Previous hx of IIH Primary hypertension PTSD (post-traumatic stress disorder) Pulmonary embolism (HCC) 2020 Type 2 diabetes (HCC) Medications: Reviewed ergocalciferol 50,000 unit capsule (VITAMIN D2, DRISDOL) Take 1 capsule by mouth one time a week. NOVOLOG FLEXPEN U-100 INSULIN 100 unit/mL (3 mL) INJECT 3 UNITS AT EACH MEAL PLUS 1 UNIT FOR EVERY 20 MG /DL OVER 100 ON GLUCOMETER. MAX DAILY USE 40 UNITS PER DAY LANTUS SOLOSTAR U-100 INSULIN 100 unit/mL (3 mL) Inject 15 Units subcutaneously two times a day. atorvastatin (LIPITOR) 20 mg tablet Take 1 tablet by mouth daily at bedtime. carvedilol (COREG) 6.25 mg tablet Take 1 tablet by mouth every 12 hours. furosemide (LASIX) 20 mg tablet Take 1 tablet by mouth every afternoon. lisinopril (ZESTRIL) 10 mg tablet Take 1 tablet by mouth every 12 hours. metFORMIN (GLUCOPHAGE) 500 mg tablet Take 1 tablet by mouth every 12 hours. potassium chloride (K-TAB) 10 mEq tablet Take 1 tablet by mouth every afternoon. VITAMIN D-3 10 mcg (400 unit) tab Take 2 capsules by mouth every afternoon. levonorgestrel (MIRENA) 21 mcg/24 hr (8 yrs) 52 mg IUD 1 Each by INTRAUTERINE route one time only. Cholecalciferol, V (more content not included)... [facility] 09-30-2024 Instructions Chelsea Ricks APRN.JHONNY - 09/30/2024 9:24 AM EST - EMG - Hard wrist brace nightly documented in this encounter [facility] 09-25-2024 Telephone encounter Note Left message requesting patient call back for urine microalbumin results. MyChart message also sent. Andres Eaton MA [facility] 09-25-2024 Telephone encounter Note ----- Message from Donna William APRN.OUTSIDE PROPERTY AGENT sent at 09/25/2024 11:56 AM EST ----- Please notify patient results are normal. Thank you. Donna William APRN.OUTSIDE PROPERTY AGENT [facility] 09-25-2024 Miscellaneous Notes Left message requesting patient call back for urine microalbumin results. MyChart message also sent. Andres Eaton MA ----- Message from Donna William APRN.OUTSIDE PROPERTY AGENT sent at 09/25/2024 11:56 AM EST ----- Please notify patient results are normal. Thank you. Donna William APRN.OUTSIDE PROPERTY AGENT documented in this encounter [facility] 09-19-2024 Telephone encounter Note Kris on pt. Vm with all information. Lorraine Olea MA [facility] 09-19-2024 Miscellaneous Notes Kris on pt. Vm with all information. Lorraine Olea MA ----- Message from Lorraine Dailey MA sent at 06/18/2024 8:16 AM EDT ----- Remind pt. Time to recheck urine micral. Lorraine Olea MA documented in this encounter [facility] 09-18-2024 Telephone encounter Note ----- Message from Lorraine Dailey MA sent at 06/18/2024 8:16 AM EDT ----- Remind pt. Time to recheck urine micral. Lorraine Olea MA [facility] 08-04-2024 Miscellaneous Notes pharm requesting refills: Last office visit 06/13/2024. Last refill 06/13/2024 12/19/2024 Requested Prescriptions Pending Prescriptions Disp Refills ergocalciferol 50,000 unit capsule (VITAMIN D2, DRISDOL) [Pharmacy Med Name: Vitamin D (Ergocalciferol) 1.25 MG (60514 UT) Oral Capsule] 4 capsule 0 Sig: Take 1 capsule by mouth once a week Please review and advise. Lorraine Olea MA documented in this encounter [facility] 08-04-2024 Telephone encounter Note pharm requesting refills: Last office visit 06/13/2024. Last refill 06/13/2024 12/19/2024 Requested Prescriptions Pending Prescriptions Disp Refills ergocalciferol 50,000 unit capsule (VITAMIN D2, DRISDOL) [Pharmacy Med Name: Vitamin D (Ergocalciferol) 1.25 MG (55517 UT) Oral Capsule] 4 capsule 0 Sig: Take 1 capsule by mouth once a week Please review and advise. Lorraine Olea MA [facility] 08-01-2024 Note Date of Procedure 08/01/2024. Asset Protection Specialist Information Maintenance Mechanic Engine: BL. Start time: 11:33 AM. Stop time: 11:33 AM. Quality Right Eye Good. Left Eye Good. NFL Interpretation Right Eye Diffuse loss. Left Eye Diffuse loss. Ganglion Cell Layer Thickness Right Eye Diffuse loss. Left Eye Diffuse loss. Interval Change Right Eye Initial. Left Eye Initial. [facility] 08-01-2024 Note Date of Procedure 08/01/2024. Asset Protection Specialist Information Maintenance Mechanic Engine: FRANCES. Start time: 11:34 AM. Stop time: 11:34 AM. Interpretation Right Eye Normal without fluid. Findings include RPE Irregularity. Left Eye Normal without fluid. Findings include RPE Irregularity. Interval Change Right Eye Initial. Left Eye Initial. [facility]EISS 08-01-2024 History of Presen t illness Narrative 1. Type 2 diabetes mellitus without retinopathy (HCC) Risk of diabetic changes and vision loss can be minimized by tight control of blood sugar, blood pressure, and cholesterol levels. Educated patient to continue care with primary care doctor and/or maintenance services dispatcher to maintain optimum levels as they are important to avoid ocular complications. Encouraged patient to call the office immediately with any changes to vision or visual concerns. Advised to not wait until the next scheduled exam. 2. RPE mottling of macula Patient not previously told about rpe changes +paternal aunt with AMD Recommended observation and UV eye protection outdoors at all times 3. Optic disc pallor, bilateral Hx of IIH in 1995 with spinal tap and release of pressure as well as oral medications -had to have done ~10 years later in 2005 as well due to swollen nerves on dilated eye exam (-) current swelling +pallor both eyes (BCVA: 20/20 OD/OS) Monitor and patient to call with any sudden blurred vision or increase in headaches 4. Regular astigmatism of both eyes Continue with current glasses Follow-up in 3 months for 30-2 and IOP check Posrha Pabon, OD August 01, 2024 11:34 AM documented in this encounter [facility] 07-14-2024 Telephone encounter Note pharm requesting refills: Last office visit 06/13/2024. Last refill 06/13/2024 nov 12/19/2024 Requested Prescriptions Pending Prescriptions Disp Refills NOVOLOG FLEXPEN U-100 INSULIN 100 unit/mL (3 mL) 36 mL 1 Sig: INJECT 3 UNITS AT EACH MEAL PLUS 1 UNIT FOR EVERY 20 MG /DL OVER 100 ON GLUCOMETER. MAX DAILY USE 40 UNITS PER DAY LANTUS SOLOSTAR U-100 INSULIN 100 unit/mL (3 mL) 27 mL 1 Sig: Inject 15 Units subcutaneously two times a day. Please review and advise. Lorraine Olea MA [facility] 07-14-2024 Miscellaneous Notes pharm requesting refills: Last office visit 06/13/2024. Last refill 06/13/2024 nov 12/19/2024 Requested Prescriptions Pending Prescriptions Disp Refills NOVOLOG FLEXPEN U-100 INSULIN 100 unit/mL (3 mL) 36 mL 1 Sig: INJECT 3 UNITS AT EACH MEAL PLUS 1 UNIT FOR EVERY 20 MG /DL OVER 100 ON GLUCOMETER. MAX DAILY USE 40 UNITS PER DAY LANTUS SOLOSTAR U-100 INSULIN 100 unit/mL (3 mL) 27 mL 1 Sig: Inject 15 Units subcutaneously two times a day. Please review and advise. Lorraine Olea MA documented in this encounter [facility] 07-10-2024 History of Presen t illness Narrative Patient was scheduled for a nutrition appointment today. The patient did not check into their scheduled appointment. I sent the patient a [employer] message encouraging them to reschedule their appointment by calling [phone]. documented in this encounter [facility] 07-07-2024 Telephone encounter Note Patient received my chart message. Lorraine Olea MA [facility] 07-07-2024 Miscellaneous Notes Patient received my chart message. Lorraine Olea MA ----- Message from Donna William APRN.CNP sent at 07/06/2024 3:08 PM EDT ----- Labs are stable, continue current medications. Hep C and HIV are both negative. Donna William APRN.CNP documented in this encounter [facility] 07-07-2024 Telephone encounter Note ----- Message from Donna William APRN.CNP sent at 07/06/2024 3:08 PM EDT ----- Labs are stable, continue current medications. Hep C and HIV are both negative. Donna William APRN.CNP [facility] 06-18-2024 Telephone encounter Note Patient aware. Reminder placed. Lorraine Olea MA [facility] 06-18-2024 Miscellaneous Notes Patient aware. Reminder placed. Lorraine Olea MA ----- Message from Donna William APRN.CNP sent at 06/17/2024 10:57 PM EDT ----- Micral is mildly elevated, recheck in 3 months. Donna William APRN.CNP documented in this encounter [facility] 06-18-2024 Telephone encounter Note ----- Message from Donna William APRN.CNP sent at 06/17/2024 10:57 PM EDT ----- Micral is mildly elevated, recheck in 3 months. Donna William APRN.OUTSIDE PROPERTY AGENT [facility] 06-16-2024 Telephone encounter Note patient electronically requesting refills as follows: Last seen 06/13/24 . Requested Prescriptions Pending Prescriptions Disp Refills potassium chloride (K-TAB) 10 mEq tablet 30 tablet 1 Sig: Take 1 tablet by mouth every afternoon. Please review and advise. Andres Eaton MA [facility] 06-16-2024 Miscellaneous Notes patient electronically requesting refills as follows: Last seen 06/13/24 . Requested Prescriptions Pending Prescriptions Disp Refills potassium chloride (K-TAB) 10 mEq tablet 30 tablet 1 Sig: Take 1 tablet by mouth every afternoon. Please review and advise. Andres Eaton MA documented in this encounter [facility] 06-13-2024 History of Presen t illness Narrative Subjective Cynthia Blacno is a 43 year old female here today for follow-up diabetes. I reviewed past medical, surgical, social, and family histories today and updated chart. Allergies, chronic medications, and supplements were also reviewed. HPI She started process for Bariatric surgery, working with genetic scientist Has been working a lot - 7 days a week Breathing is much better since last visit She has JOSE ENRIQUE - has to schedule another sleep study She is seeing Dr Duffy, pulmonology Blood sugar has gone to low 80s - when she is unable to eat lunch Can feel it, will drink some pop if this happens Feet - no problems, no pain but they feel tired after work No numbness or tinggling PAST MEDICAL HISTORY Diagnosis Date Lung nodules Obstructive sleep apnea Primary hypertension PTSD (post-traumatic stress disorder) Pulmonary embolism (HCC) 2020 Type 2 diabetes (HCC) PAST SURGICAL HISTORY Procedure Laterality Date HYSTEROSCOPY, DIAGNOSTIC (SEPARATE 12/2022 iud inserted when there was no prior IUD found INSERTION OF IUD 12/2022 MIrena TONSILLECTOMY HX 1989 ALLERGIES Claritin [Loratadine] MEDICATIONS VITAMIN D-3 10 mcg (400 unit) tab Take 2 capsules by mouth every afternoon. LANTUS SOLOSTAR U-100 INSULIN 100 unit/mL (3 mL) Inject 15 Units subcutaneously two times a day. levonorgestrel (MIRENA) 21 mcg/24 hr (8 yrs) 52 mg IUD 1 Each by INTRAUTERINE route one time only. Cholecalciferol, Vitamin D3, (VITAMIN D-3) 50 mcg (2,000 unit) cap Take 2 capsules by mouth once daily. insulin needles, DISPOSABLE, (LITE TOUCH INSULIN PEN NEEDLES) 31 gauge x 5/16 1 Each five times a day. blood sugar diagnostic (BLOOD GLUCOSE TEST) test strip 1 Strip five times a day. Use as instructed atorvastatin (LIPITOR) 20 mg tablet Take 20 mg by mouth daily at bedtime. carvedilol (COREG) 6.25 mg tablet Take 1 tablet by mouth every 12 hours. furosemide (LASIX) 20 mg tablet Take 1 tablet by mouth every afternoon. NOVOLOG FLEXPEN U-100 INSULIN 100 unit/mL (3 mL) INJECT 3 UNITS AT EACH MEAL PLUS 1 UNIT FOR EVERY 20 MG /DL OVER 100 ON GLUCOMETER. MAX DAILY USE 40 UNITS PER DAY lisinopril (ZESTRIL) 10 mg tablet Take 1 tablet by mouth every 12 hours. metFORMIN (GLUCOPHAGE) 500 mg tablet Take 1 tablet by mouth every 12 hours. potassium chloride (K-TAB) 10 mEq tablet Take 1 tablet by mouth every afternoon. Insulin [place], Disposable, 32 gauge x 5/32 four times daily. USE DIRECTED. ipratropium bromide (ATROVENT) 42 mcg (0.06 %) nasal spray Use 2 Sprays in the nose three times a day. amoxicillin-clavulanate potassium (AUGMENTIN) 875-125 mg per tablet Take 1 tablet by mouth every 12 hours for 10 days. (Patient not taking: Reported on 06/13/2024) FAMILY HISTORY Problem Relation Age of Onset Diabetes Father Drug abuse Half-sister Diabetes Paternal Aunt great Social History Tobacco Use Smoking status: Never Smokeless tobacco: Never Vaping Use Vaping Use: Former Substances: Nicotine Devices: Pre-filled or refillable cartridge Substance Use Topics Alcohol use: Yes Comment: occ Drug use: Never Review of Systems Constitutional: Negative for appetite change, chills, fatigue, fever and unexpected weight change. HENT: Negative for congestion, ear pain, rhinorrhea and sore throat. Eyes: Negative for pain, discharge, itching and visual disturbance. Respiratory: Negative for cough, shortness of breath and wheezing. Cardiovascular: Negative for chest pain, palpitations and leg swelling. Gastrointestinal: Negative for abdominal pain, constipation, diarrhea, nausea and vomiting. Musculoskeletal: Negative for arthralgias. Skin: Negative for rash. Neurological: Negative for dizziness, tremors, weakness and headaches. Psychiatric/Behavioral: Negative for dysphoric mood and sleep disturbance. The patient is not nervous/anxious. Objective BP 118/78 Pulse 68 Temp 97.9 Ht 5' 6.5 (1.69m) Wt 408 lb (185.1kg) SpO2 98% BMI 64.87 kg/(m^2). Physical Exam Constitutional: Appearance: Normal appearance. She is well-developed. She is not diaphoretic. HENT: Head: Normocephalic and atraumatic. Right Ear: Hearing, tympanic membrane, ear canal and external ear normal. Left Ear: Hearing, tympanic membrane, ear canal and external ear normal. Nose: Nose normal. Mouth/Throat: Lips: [place]. Mouth: Mucous membranes are moist. Pharynx: Oropharynx is clear. Eyes: General: Lids are normal. Extraocular Movements: Extraocular movements intact. Conjunctiva/sclera: Conjunctivae normal. Pupils: Pupils are equal, round, and reactive to light. Neck: Thyroid: No thyroid mass or thyromegaly. Vascular: Normal carotid pulses. No carotid bruit. Cardiovascular: Rate and Rhythm: Normal rate and regular rhythm. Pulses: Radial pulses are 2+ on the right side and 2+ on the left side. Dorsalis pedis pulses are 2+ on the right side and 2+ on the left side. Posterior tibial pulses are 2+ on the right side and 2+ on the left side. Heart sounds: Normal heart sounds. No murmur heard. Pulmonary: Effort: Pulmonary effort is normal. Breath sounds: Normal breath sounds. No wheezing, rhonchi or rales. Abdominal: General: Bowel sounds are normal. Palpations: Abdomen is soft. Tenderness: There is no abdominal tenderness. Musculoskeletal: General: Normal range of motion. Cervical back: Normal range of motion. Lymphadenopathy: Cervical: No cervical adenopathy. Upper Body: Right upper body: No supraclavicular adenopathy. Left upper body: No supraclavicular adenopathy. Skin: General: Skin is warm and dry. Findings: No lesion or rash. Neurological: General: No focal deficit present. Mental Status: She is alert and oriented to person, place, and time. Cranial Nerves: No cranial nerve deficit. Sensory: Sensation is intact. Motor: Motor function is intact. Coordination: Coordination is intact. Gait: Gait normal. Psychiatric: Attention and Perception: Attention and perception normal. Mood and Affect: Mood and affect normal. Speech: Speech normal. Behavior: Behavior normal. Behavior is cooperative. Cognition and Memory: Cognition and memory normal. Judgment: Judgment normal. Feet:Shoes and socks removed, Are you having foot pain no, normal distal pulses, sensitive to 10 gm monofilament, and vibratory perception normal Latest Ref Rn 03/25/2024 04/07/2024 05/09/2024 Protein, Total 6.3 - 8.0 g/dL 6.8 Albumin 3.9 - 4.9 g/dL 3.6 (L) Calcium 8.5 - 10.2 mg/dL 9.5 Bilirubin, Total 0.2 - 1.3 mg/dL 0.3 Alkaline Phosphatase 34 - 123 U/L 106 AST 13 - 35 U/L 10 (L) ALT 7 - 38 U/L 11 Glucose 74 - 99 mg/dL 128 (H) BUN 7 - 21 mg/dL 18 Creatinine 0.58 - 0.96 mg/dL 0.94 Sodium 136 - 144 mmol/L 140 Potassium 3.7 - 5.1 mmol/L 4.1 Chloride 97 - 105 mmol/L 105 CO2 22 - 30 mmol/L 29 Anion Gap 9 - 18 mmol/L 6 (L) eGFR >=60 mL/min/1.73m 78 WBC 3.70 - 11.00 k/uL 8.15 RBC 3.90 - 5.20 m/uL 4.90 Hemoglobin 11.5 - 15.5 g/dL 14.2 Hematocrit 36.0 - 46.0 % 44.2 MCV 80.0 - 100.0 fL 90.2 MCH 26.0 - 34.0 pg 29.0 MCHC 30.5 - 36.0 g/dL 32.1 RDW-CV 11.5 - 15.0 % 12.9 Platelet Count 150 - 400 k/uL 248 MPV 9.0 - 12.7 fL 9.4 Absolute nRBC <0.01 k/uL <0.01 Cholesterol, Total <200 mg/dL 170 Triglyceride <150 mg/dL 109 HDL Cholesterol >39 mg/dL 50 Non HDL Cholesterol <130 mg/dL 120 Fasting Time hrs 12 VLDL Cholesterol <30 mg/dL 22 TC:HDL Ratio <5.10 3.40 LDL Cholesterol <100 mg/dL 98 LDL:HDL Ratio <2.54 1.96 Hemoglobin A1C 4.3 - 5.6 % 6.5 (H) Estimated Average Glucose mg/dL 140 TSH 0.270 - 4.200 mIU/L 1.870 Vitamin D 25 Hydroxy 31.0 - 80.0 ng/mL 18.2 (L) Vitamin B12 232 - 1,245 pg/mL 360 ASSESSMENT/PLAN: 1. Controlled type 2 diabetes mellitus without complication, with long-term current use of insulin (HCC) - ICD9: 250.00, V58.67, ICD10: E11.9, Z79.4 (primary diagnosis) - Controlled - Continue current medications - Statin prescribed - atorvastatin - Blood glucose monitoring on a four times daily schedule - Counseled on healthy diet and regular exercise - Discussed need for and benefit of weight loss. BMI 64.87 kg/(m^2) - Follow up in 6 months, sooner should any other issues arise. - ALBUMIN/CREATININE RATIO, URINE - NOVOLOG FLEXPEN U-100 INSULIN ASPART 100 UNIT/ML (3 ML) SUBCUTANEOUS - LANTUS SOLOSTAR U-100 INSULIN 100 UNIT/ML (3 ML) SUBCUTANEOUS PEN - CONSULT TO OPHTHALMOLOGY - HEMOGLOBIN A1C 2. Special screening examination for viral disease - ICD9: V73.99, ICD10: Z11.59 - HEPATITIS C ANTIBODY IA WITH CONFIRMATION 3. Screening for HIV (human immunodeficiency virus) - ICD9: V73.89, ICD10: Z11.4 - HIV 1/2 COMBO WITH REFLEX TO DIFFERENTIATION 4. Vitamin D deficiency - ICD9: 268.9, ICD10: E55.9 Continue supplement - VITAMIN D 25 HYDROXY Donna William APRN.OUTSIDE PROPERTY AGENT documented in this encounter [facility] 06-06-2024 History of Presen t illness Narrative ESTABLISHED PATIENT FOLLOW-UP CONSULT SERVICE DATE: June 06, 2024 PRIMARY CARE PHYSICIAN: Donna William APRN.CNP SUBJECTIVE CHIEF COMPLAINT: here for follow up for cough and sleep apnea HPI:Cynthia Blanco is a 43 year old female here for follow up appointment for her cough and sleep apnea Seen couple of month ago Treated with steroids and augmentin Had an excellent response Doing well overall No new sx Sleep study showed sever sleep apnea A titration test ordered but not completed yet Undergoing bariatric surgery SOCIAL HISTORY: Social History Tobacco Use Smoking status: Never Smokeless tobacco: Never Vaping Use Vaping Use: Former Substances: Nicotine Devices: Pre-filled or refillable cartridge Substance Use Topics Alcohol use: Yes Comment: occ Drug use: Never MEDICATIONS: Prior to Admission Medications (Not in a hospital admission) CURRENT ALLERGIES: ALLERGIES Allergen Reactions Claritin [Loratadin* Other: See Comments Lymph nodes swell COMPLETE REVIEW OF SYSTEMS: REVIEW OF SYSTEMS The remainder of the ROS was negative. OBJECTIVE PHYSICAL EXAMINATION: VITAL SIGNS: BP 118/79 Pulse 73 Temp (Src) 97.3 (Temporal Artery) Resp 20 Ht 5' 6.5 (1.69m) Wt 409 lb (185.5kg) SpO2 96% BMI 65.03 kg/(m^2). PHYSICAL EXAMINATION BP 118/79 (BP Site: Left Arm, BP Position: Sitting, BP Cuff Size: Large Adult) Pulse 73 Temp 36.3 C (97.3 F) (Temporal Artery) Resp 20 Ht 168.9 cm (5' 6.5) Wt (!) 185.5 kg (409 lb) SpO2 96% BMI 65.03 kg/m General appearance- NAD, no conversational dyspnea. Ambulates without assistance Eyes: PERRLA; anicteric sclera, No conjunctival injection; No heliotrope rash. ENMT: Gross hearing intact; Nares without drainage. No nasal polyps; Normal nasal mucosa, septum, and turbinates;No sinus tenderness. No oral ulcers. No oral thrush. Neck: No palpable CHARLEY; No obvious goiter; No JVD Cardiovascular: RRR w/o murmurs Respiratory: No crackles, wheezes, or rhonchi. No accessory muscle use. Good effort. No kyphosis. Gastrointestinal: soft, NT/ND, BS+ Skin: No visible rashes, lesions, or subcutaneous nodules; No Gottron's papules; normal temperature Psychiatric: Alert and oriented x person, place and time; cooperative, appropriate affect Neurological: Gross sensation intact. EOMI, moving all extremities Musculoskeletal: No clubbing or cyanosis; No joint effusions, swelling or erythema; strength 5/5 throughout; normal tone Extremities: Peripheral pulses present; No edema DATA: Diagnostic tests reviewed for today's visit, films/specimens were personally reviewed by me: OTHER TESTING: CXR: No results found. CT Chest: Last CT/CTA Chest/Lungs No resulted procedures found. No results found. Echo: No results found for this or any previous visit (from the past 58517 hour(s)). Vaccines: There is no immunization history on file for this patient. ASSESSMENT 1. JOSE ENRIQUE (obstructive sleep apnea) - ICD9: 327.23, ICD10: G47.33 (primary diagnosis) 2. Acute bronchitis, unspecified organism - ICD9: 466.0, ICD10: J20.9 3. Acute cough - ICD9: 786.2, ICD10: R05.1 Plan: Cough resolved Was given a prescription of steroids and Abx to use in the future in case needed Will need to have her titration study performed to start on PAP Once PAP therapy started , ok to proceed with the planned bariatric surgery from my standpoint Copy to Referring physician Thank you for allowing me to participate in this patient's care. SIGNATURE: Clive Duffy MD PATIENT NAME: Cynthia Blanco DATE: June 06, 2024 TIME: 11:20 AM PAGER/CONTACT #: documented in this encounter [facility] 06-04-2024 Instructions Osmany Swenson, LAVERN - 06/04/2024 2:45 PM EDT Nutrition Action Plan 1. Read Nutritional Guidelines Section of Your Guide to Surgery by next session [email or web address] /scassets/files/[email or web address]? la=en 2. Do not skip meals. 3. Use protein shake 1x per day to replace any skipped meals or for breakfast 4. Use the Healthy Plate Method of portion control for lunch and dinner 4 oz lean meat (fish, chicken, pork tenderloin, turkey, seafood, eggs/cheese) 1/2 plate non starchy vegetables (salad, greens, cabbage, spinach, brussels sprouts, broccoli, carrots, celery, peppers, green beans, cauliflower) 1 cup starch/starchy vegetables (corn, peas, beans, winter squash, sweet potato, brown rice, whole grain pasta, whole grain bread products, quinoa) 5. Physical activity: Add in a combination of cardio and strength training with a goal of 150+ minutes total per week ThinkSmart database: https://PublicEarth/ Chair or standing Team Body Project https://www.Neuralitic Systemsube.com/watch?v= c8oaKX-BzQc Chair exercise [employer] https://www.Weekend-a-gogo/reso urce/videos-detail.asp?video=38 Claribel Tammy Easy walk in place 15 min https://www.Neuralitic Systemsube.com/watch?v= effJ01rjnTM Body Project 30 min https://youPanXchange.[email or web address]/J-[email or web address] Claribel Tammy Higher intensity walk 30 min https://www.Neuralitic Systemsube.com/watch?v= ioDC8WXr0TJ 6. Drink 64 ounces per day water. Fluids should follow these guidelines: No carbonation, no caffeine, no calories, no alcohol. 7. research these vitamin options for use 3 weeks post operatively: - Bariatric Fusion: 4 Complete Chewable Multivitamins per day (2 in the AM, 2 in the PM) www.bariatricfusion.Remotemedical - rollApp Health: 1 Bariatric Multivitamin and Calcium Citrate (total of 0005-9506 mg/day) * take calcium citrate separately from Multivitamin with iron at least 2 hours apart and 4 hours apart from additional calcium www.[employer] - Bariatric Choice: 4 Complete Multivitamins (chewables) per day Www.bariatricchoice.com - Bariatric Advantage: 2 Multivitamins and 3 Calcium Citrate Chewables per day * take calcium citrate separately from Multivitamin with iron at least 2 hours apart and 4 hours apart from additional calcium Www.bariatricadvantage.com 8. Practice these mindful eating techniques: Eat slowly by taking small bites and chewing thoroughly Eat protein first, vegetables second, and starches last Separate fluids from foods for 30 minutes before and after each meal/snack 9. Look into shakes for 2 week preop diet: 5 1/2 cartons Light Start [place] Instant Breakfast OR packets mixed with low fat milk OR 4 1/2 bottles High Protein Slim Fast OR 4 1/2 bottles Boost Glucose Control OR 5 cartons Original (15 gm protein) Atkins shake OR 4 1/2 Bottles Original OWYN shake Pre-op goal weight: 377 pounds Protein needs: 87 gm per day Follow Up on 07/10 at 10:30 AM documented in this encounter [facility] 06-04-2024 History of Presen t illness Narrative [facility] Nutrition Therapy: Virtual Consult - Initial Assessment I have communicated my name and active licensure. The patient s identity and physical location were verified at the time of this visit. Either the patient or their legal employment program representative has been informed of the risks and benefits of -- and alternatives to -- treatment through a remote evaluation and consents to proceed with the evaluation remotely. Nutrition Diagnosis: Overweight/obesity, related to, food/nutrition - related knowledge deficit and physical inactivity, as evidenced by BMI above normative standard for age and gender. RECOMMENDED MALNUTRITION DIAGNOSIS: NO MALNUTRITION IDENTIFIED NUTRITION CARE PLAN Nutrition Intervention 06/04/2024: 1. Read Nutritional Guidelines Section of Your Guide to Surgery by next session https://[email or web address].[email or web address] /scassets/files/org/[email or web address]/[email or web address]? la=en 2. Do not skip meals. 3. Use protein shake 1x per day to replace any skipped meals or for breakfast 4. Use the Healthy Plate Method of portion control for lunch and dinner 4 oz lean meat (fish, chicken, pork tenderloin, turkey, seafood, eggs/cheese) 1/2 plate non starchy vegetables (salad, greens, cabbage, spinach, brussels sprouts, broccoli, carrots, celery, peppers, green beans, cauliflower) 1 cup starch/starchy vegetables (corn, peas, beans, winter squash, sweet potato, brown rice, whole grain pasta, whole grain bread products, quinoa) 5. Physical activity: Add in a combination of cardio and strength training with a goal of 150+ minutes total per week ThinkSmart database: https://PublicEarth/ Chair or standing Team Body Project https://www.Neuralitic Systemsube.com/watch?v= q6ehZM-KtNs Chair exercise [employer] https://www.Weekend-a-gogo/reso urce/videos-detail.asp?video=38 Claribel Alvareze Easy walk in place 15 min https://www.Neuralitic Systemsube.com/watch?v= tkiO28ozfYQ Body Project 30 min https://youPanXchange.be/J-[email or web address]-7 Claribel Tammy Higher intensity walk 30 min https://www.Neuralitic Systemsube.com/watch?v= heVL3WBn9PF 6. Drink 64 ounces per day water. Fluids should follow these guidelines: No carbonation, no caffeine, no calories, no alcohol. 7. research these vitamin options for use 3 weeks post operatively: - Bariatric Fusion: 4 Complete Chewable Multivitamins per day (2 in the AM, 2 in the PM) www.bariatricfusion.com - [employer] Health: 1 Bariatric Multivitamin and Calcium Citrate (total of 9264-3292 mg/day) * take calcium citrate separately from Multivitamin with iron at least 2 hours apart and 4 hours apart from additional calcium www.iMPath NetworksarenoWorkboard.Remotemedical - Bariatric Choice: 4 Complete Multivitamins (chewables) per day Www.bariatricchoice.com - Bariatric Advantage: 2 Multivitamins and 3 Calcium Citrate Chewables per day * take calcium citrate separately from Multivitamin with iron at least 2 hours apart and 4 hours apart from additional calcium Www.bariatricadConnectbrightage.Remotemedical 8. Practice these mindful eating techniques: Eat slowly by taking small bites and chewing thoroughly Eat protein first, vegetables second, and starches last Separate fluids from foods for 30 minutes before and after each meal/snack 9. Look into shakes for 2 week preop diet: 5 1/2 cartons Light Start [place] Instant Breakfast OR packets mixed with low fat milk OR 4 1/2 bottles High Protein Slim Fast OR 4 1/2 bottles Boost Glucose Control OR 5 cartons Original (15 gm protein) Atkins shake OR 4 1/2 Bottles Original OWYN shake Pre-op goal weight: 377 pounds Protein needs: 87 gm per day Nutrition Monitoring & Evaluation: 1-2 pound weight loss per week Need for Follow up: 1 month as scheduled Patient presents for initial nutrition consult to discuss preparation for bariatric surgery. Patient interested in LSG with Dr. Grace. Height and weight discussed today. BMI 62.96, Class IV obesity. Significant co morbidities include T2DM, dyslipidemia, HTN, and JOSE ENRIQUE. Most recent lab results reveal low folate and vitamin D. Patient has a basic understanding of the surgery and necessary changes needed to be made prior to surgery. Weight loss expectations are high; expecting to lose 232 lbs (58 %TBW) with a desired weight of 170 lbs. Realistic weight loss expectations discussed. Motivation for surgery includes family, improved health and activity. Previous diet attempts include self directed diets and regular exercise. Weight history significant for 50 lb weight loss in 1 year with diet and exercise and then subsequent regain. Potential barriers for weight loss include difficulties remaining consistent chcf due to life changes. Diet recall reveals an inconsistent meal pattern with regularly skipping breakfast. Most meals are high in calories from processed items and high fat meats. Protein intake is inadequate (~49% of recommendations) with skipping breakfast often. Fluid intake is adequate from a variety of sources, but sugar sweetened beverages not recommended. She does not currently exercise, which may limit desired weight loss. Wittmann body weight is 159 lbs. Excess body weight is 245 lbs. (based on initial weight of [address] Grace on 05/07/24) Goal weight pre-op is 377 lbs. Patient to follow a 4 week liquid fast prior to surgery Protein goal is 87 gm (based on 1.2 gm/kg ideal body weight) Patient meets the National Institutes of Health guidelines for weight loss surgery and has [employer] therefore is required to complete 0 months of Nutrition Intervention for clearance for surgery. Today is visit 1 of 0. Patient does meet National Institutes of Health guidelines for weight loss surgery, however would like to see more of an effort in making dietary changes before giving clearance. I anticipate at least 2-3 nutritional follow-up visits prior to clearance for surgery. Patient's symptoms are: Weight Concerns: failure to lose weight Diet History: Breakfast - skips Snack - none Lunch - 2 entree plate: fried rice, string larios chicken (11 gm pro) and grilled chicken (22 gm pro); spring roll on the side OR whopper (510 calories, 50 gm cho, 22 gm fat, 22 gm pro) and fries from [employer] Snack - none Dinner - 3 hot dogs (21 gm pro) with ketchup Snack - none Beverages - 32 oz water, 1 bottle sugar sweetened tea, 2-3 bottles regular soda Alcohol- none Vitamins/Supplements - zinc Activity: Activities of Daily Living: Active 75% of the day. 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 Resting Metabolic Rate: 2517 Malnutrition Screening Significant unintentional weight loss? No Eating less than 75% of usual intake for more than 2 weeks? No Potential Signs of Inflammation: no identifiable sources Education Materials Provided: BMI Nutrition Guidelines:Guide to Surgery and Required Vitamin Minerals after Weight Loss Surgery and Healthy Lunch/Dinner Plate and Snack Ideas READINESS TO LEARN Cognitive ability: Alert and oriented Motivation to learn: Eager Family support: Unable to assess - Family not present Instruction provided to: Patient Patient learns best by: Multiple Methods Factors affecting learning: None Physical limitations affecting learning: None Referred by: Lesly CARRASQUILLO Billing Type: Initial Assess/15 min 2 units SIGNATURE: Osmany Swenson RD PATIENT NAME: Cynthia Blanco DATE: 06/04/2024 TIME: 2:44 PM documented in this encounter [facility] 05-09-2024 History of Presen t illness Narrative Pap titration order placed in epic. documented in this encounter [facility] 05-09-2024 Telephone encounter Note Called and spoke with patient regarding CPAP pt notes that she was diagnosed and treatment for obstructive sleep apnea in 2005. She notes that at that time her machine was taken back, unclear why, she did report compliance. I reviewed and discussed the results of her current sleep study, indicating that she has obstructive sleep apnea. She is interested in treatment for this with CPAP. On review, patient has Medicaid, indicating that she will require an in lab PAP titration before CPAP can be given. I placed an order in [place] for that and we will send a message to the patient with the phone number to call to schedule her sleep study. 04/25/2024 HSAT [resulted 05/02/2024] Time STARLA/AHI Supine 34.0 min 56.5 Off-Supine 397.0 min 13.0 Total 431.0 min 16.4 [facility] Work Phone: 05-09-2024 Miscellaneous Notes Called and spoke with patient regarding CPAP pt notes that she was diagnosed and treatment for obstructive sleep apnea in 2005. She notes that at that time her machine was taken back, unclear why, she did report compliance. I reviewed and discussed the results of her current sleep study, indicating that she has obstructive sleep apnea. She is interested in treatment for this with CPAP. On review, patient has Medicaid, indicating that she will require an in lab PAP titration before CPAP can be given. I placed an order in [place] for that and we will send a message to the patient with the phone number to call to schedule her sleep study. 04/25/2024 HSAT [resulted 05/02/2024] Time STARLA/AHI Supine 34.0 min 56.5 Off-Supine 397.0 min 13.0 Total 431.0 min 16.4 documented in this encounter [facility] 05-09-2024 History of Presen t illness Narrative BMI Obesity Medicine Initial Bariatric Surgery Consult Virtual visit Virtual Visit (Audio/Visual)I have discussed the nature of this visit with the patient which will occur via [facility] (Phone, Virtual Visit) and she agrees to proceed with this interaction. I have communicated my name and active licensure. The patient's identity and physical location were verified at the time of this visit. Either the patient or their legal employment program representative has been informed of the risks and benefits of -- and alternatives to -- treatment through a remote evaluation and consents to proceed with the evaluation remotely. BMI Surgical Pathway Visit type: Obesity Medicine Visit Patient Summary:: Cynthia Blanco is a 43 year old female who presents on May 09, 2024 for medical assessment of obesity. The patient is interested in laparoscopic sleeve gastrectomy and has decided to have the procedure with Caprice Grace MD Weight History: She reports a strong family history of obesity and early onset weight gain. She states her weight gain is related to the following factors, including reduced physical activity and consumption of unhealthy foods. Weight Graph: (please see graph scanned in chart) Weight Gain Promoting Medications: NO Diet: See BMI RD note Previous Obesity Treatments: Self directed exercise and dieting Commercial dieting OTC supplements Previous AOM Rx: Denies Exercise: Regular exercise: No Barriers to regular exercise? None Stress test: no Functional Status: Do moderate work around the house such as vacuuming, sweeping floors, or carrying in groceries (3.50 METs) Patient denies any chest pain or undue shortness of breath with the above physical activity. 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 levonorgestrel (MIRENA) 21 mcg/24 hr (8 yrs) 52 mg IUD 1 Each by INTRAUTERINE route one time only. Cholecalciferol, Vitamin D3, (VITAMIN D-3) 50 mcg (2,000 unit) cap Take 2 capsules by mouth once daily. insulin needles, DISPOSABLE, (LITE TOUCH INSULIN PEN NEEDLES) 31 gauge x 5/16 1 Each five times a day. blood sugar diagnostic (BLOOD GLUCOSE TEST) test strip 1 Strip five times a day. Use as instructed atorvastatin (LIPITOR) 20 mg tablet Take 20 mg by mouth daily at bedtime. carvedilol (COREG) 6.25 mg tablet Take 1 tablet by mouth every 12 hours. furosemide (LASIX) 20 mg tablet Take 1 tablet by mouth every afternoon. NOVOLOG FLEXPEN U-100 INSULIN 100 unit/mL (3 mL) INJECT 3 UNITS AT EACH MEAL PLUS 1 UNIT FOR EVERY 20 MG /DL OVER 100 ON GLUCOMETER. MAX DAILY USE 40 UNITS PER DAY lisinopril (ZESTRIL) 10 mg tablet Take 1 tablet by mouth every 12 hours. metFORMIN (GLUCOPHAGE) 500 mg tablet Take 1 tablet by mouth every 12 hours. potassium chloride (K-TAB) 10 mEq tablet Take 1 tablet by mouth every afternoon. Insulin [place], Disposable, 32 gauge x 5/32 four times daily. USE DIRECTED. ipratropium bromide (ATROVENT) 42 mcg (0.06 %) nasal spray Use 2 Sprays in the nose three times a day. No current facility-administered medications on file prior to visit. ALLERGIES Allergen Reactions Claritin [Loratadin* Other: See Comments Lymph nodes swell PAST SURGICAL HISTORY Procedure Laterality Date HYSTEROSCOPY, DIAGNOSTIC (SEPARATE 12/2022 iud inserted when there was no prior IUD found INSERTION OF IUD 12/2022 MIrena TONSILLECTOMY HX 1989 Any problems with anesthesia with the above surgeries: No Patient Active Problem List Morbid obesity (HCC) Dyslipidemia VTE (venous thromboembolism) Obstructive sleep apnea Controlled type 2 diabetes mellitus without complication, with long-term current use of insulin (HCC) IUD (intrauterine device) in place Lung nodules Primary hypertension Pulmonary embolism (HCC) Resolved Hospital Problems No resolved problems to display. FAMILY HISTORY Problem Relation Age of Onset Diabetes Father Drug abuse Half-sister Diabetes Paternal Aunt great Social History Tobacco Use Smoking status: Never Smokeless tobacco: Never Vaping Use Vaping Use: Former Substances: Nicotine Devices: Pre-filled or refillable cartridge Substance Use Topics Alcohol use: Yes Comment: occ Drug use: Never Review Of Systems Skin: negative Respiratory: +JOSE ENRIQUE Cardiovascular: +HTN-Rx Gastrointestinal: No blood in stool, pain with BM, tarry stool, persistent diarrhea or constipation Genitourinary: No burning with urination, blood in urine or incontinence. Hematology/Lymphology Hx PE-2020 Musculoskeletal: back pain Psychiatric: +PTSD Endocrine: +I7EG-Sx Neuro: Migraine headaches Physical Exam:(VIRTUAL) Ht 170.2 cm (5' 7) Wt (!) 182.3 kg (402 lb) BMI 62.96 kg/m BMI = Body mass index is 62.96 kg/m . GENERAL: NAD Impression Cynthia Blanco is a 43 year old female with Class III obesity who presented today for medical evaluation as Cynthia Blanco prepares for bariatric surgery. She has the following metabolic complications of obesity type 2 diabetes mellitus, hypertension, and obstructive sleep apnea and other medical conditions as noted above. She is a candidate for bariatric and metabolic surgery. she will be evaluated by our multidisciplinary team in preparation for surgery. : Recommend that she should not become for 18-24 months after surgery due to increased risks of micronutrient deficiency. I counseled her on the perioperative use of estrogen therapy, instructing her not to take oral estrogen (eg OCPs) one month before and one month after surgery due to increased VTE risk. We reviewed alternate forms of contraception and encouraged the patient to speak with her physician/provider to formulate a perioperative plan. If she is considering a Julien-en Y gastric bypass, I counseled her that oral methods of control may not be as effective after surgery and that they should consider alternate contraception to reduce the risk of . May proceed with bariatric surgery if the baseline ECG normal. No further noninvasive cardiac testing needed as the patient has no intermediate clinical risk factors, (IDDM, renal failure, CHF, CAD, and CVA) and has a normal functional capacity. Plan Based on the severity and resistance of the obesity to more conservative weight loss approaches, I believe a surgical intervention is the best and most appropriate intervention. -The patient has a 0 month insurance requirement prior to surgery. -Reviewed BMI Nutritional Tips for Bariatric Surgery pamphlet -Encouraged the patient to improve physical activity. We discussed the benefits of both cardiovascular and strength exercises. -Discussed the importance of taking post-operative vitamins and reviewed vitamin levels ordered today. Patient understands that any variations of B vitamins or Vitamin D will be corrected pre-operatively. -Labs ordered today: See Epic -EKG, RUQ US Order placed today -JOSE ENRIQUE optimization, has follow up with sleep medicine I spent a total of 55 minutes on the date of the service which included preparing to see the patient, [id number]-[id number] patient care, completing clinical documentation, obtaining and/or reviewing separately obtained history, performing a medically appropriate examination, counseling and educating the patient/family/caregiver, ordering medications, tests, or procedures, and independently interpreting results (not separately reported). Elsy Dickerson APRN.CNP documented in this encounter [facility] 05-07-2024 History of Presen t illness Narrative BARIATRIC SURGERY NEW PATIENT CONSULTATION HISTORY AND PHYSICAL Date: May 07, 2024 Time: 3:16 PM Name: Cynthia Blanco This visit was performed virtually. I have communicated my name and active licensure. The patient s identity and physical location were verified at the time of this visit. Either the patient or their legal employment program representative has been informed of the risks and benefits of -- and alternatives to -- treatment through a remote evaluation and consents to proceed with the evaluation remotely. BMI Surgical Pathway Visit type: Bariatric Surgeon Visit This is a 43 year old female with morbid obesity (Body mass index is 62.96 kg/m .) who presents to clinic for consideration of bariatric surgery. T2DM for 3 years, on metformin and insulin (~50 units per day). PE 3-years ago, not on any blood thinner because of heavy vaginal bleeding JOSE ENRIQUE HTN, HLP PAST MEDICAL HISTORY: PAST MEDICAL HISTORY Diagnosis Date Lung nodules Obstructive sleep apnea Primary hypertension PTSD (post-traumatic stress disorder) Pulmonary embolism (HCC) 2020 Type 2 diabetes (HCC) PAST SURGICAL HISTORY: PAST SURGICAL HISTORY Procedure Laterality Date HYSTEROSCOPY, DIAGNOSTIC (SEPARATE 12/2022 iud inserted when there was no prior IUD found INSERTION OF IUD 12/2022 MIrena TONSILLECTOMY HX 1989 FAMILY HISTORY: FAMILY HISTORY Problem Relation Age of Onset Diabetes Father Drug abuse Half-sister Diabetes Paternal Aunt great SOCIAL HISTORY: Social History Tobacco Use Smoking status: Never Smokeless tobacco: Never Vaping Use Vaping Use: Former Substances: Nicotine Devices: Pre-filled or refillable cartridge Substance Use Topics Alcohol use: Yes Comment: [facility] Drug use: Never MEDICATIONS: Prior to Admission Medications: LANTUS SOLOSTAR U-100 INSULIN 100 unit/mL (3 mL) Inject 15 Units subcutaneously two times a day. levonorgestrel (MIRENA) 21 mcg/24 hr (8 yrs) 52 mg IUD 1 Each by INTRAUTERINE route one time only. Cholecalciferol, Vitamin D3, (VITAMIN D-3) 50 mcg (2,000 unit) cap Take 2 capsules by mouth once daily. insulin needles, DISPOSABLE, (LITE TOUCH INSULIN PEN NEEDLES) 31 gauge x 5/16 1 Each five times a day. blood sugar diagnostic (BLOOD GLUCOSE TEST) test strip 1 Strip five times a day. Use as instructed atorvastatin (LIPITOR) 20 mg tablet Take 20 mg by mouth daily at bedtime. carvedilol (COREG) 6.25 mg tablet Take 1 tablet by mouth every 12 hours. furosemide (LASIX) 20 mg tablet Take 1 tablet by mouth every afternoon. NOVOLOG FLEXPEN U-100 INSULIN 100 unit/mL (3 mL) INJECT 3 UNITS AT EACH MEAL PLUS 1 UNIT FOR EVERY 20 MG /DL OVER 100 ON GLUCOMETER. MAX DAILY USE 40 UNITS PER DAY lisinopril (ZESTRIL) 10 mg tablet Take 1 tablet by mouth every 12 hours. metFORMIN (GLUCOPHAGE) 500 mg tablet Take 1 tablet by mouth every 12 hours. potassium chloride (K-TAB) 10 mEq tablet Take 1 tablet by mouth every afternoon. Insulin [place], Disposable, 32 gauge x 5/32 four times daily. USE DIRECTED. ipratropium bromide (ATROVENT) 42 mcg (0.06 %) nasal spray Use 2 Sprays in the nose three times a day. ALLERGIES: ALLERGIES Allergen Reactions Claritin [Loratadin* Other: See Comments Lymph nodes swell REVIEW OF SYSTEMS: GENERAL: Negative for malaise, significant weight loss and fever NECK: Negative for lumps, goiter, pain and significant neck swelling RESPIRATORY: Negative for cough, wheezing or shortness of breath. CARDIOVASCULAR: Negative for chest pain, leg swelling or palpitations. GI: Negative for abdominal discomfort, blood in stools or black stools or change in bowel habits : No history of dysuria, frequency or incontinence MUSCULOSKELETAL: Negative for joint pain or swelling, back pain or muscle pain. SKIN: Negative for lesions, rash, and itching. PSYCH: Negative for sleep disturbance, mood disorder and recent psychosocial stressors. ENDOCRINE: Negative for cold or heat intolerance, polyuria, polydipsia and goiter. PHYSICAL EXAM: Patient reported Ht 170.2 cm (5' 7) Wt (!) 182.3 kg (402 lb) BMI 62.96 kg/m General - Normal, healthy, cooperative, in no acute distress Able to interact verbally by video conference Psych - Orientation: normal to time place, person and situation Mood/Affect: Normal Head/Neuro - Normal size and shape, Facial appearance normal Pulmonary - respiratory effort normal Cardiovascular - patient describes extremities normal, warm, no cyanosis,no clubbing, and no edema Abdominal - Visible protrusions or hernias: No Skin - abnormal lesions not visualized Motor - patient seen sitting with normal appearing strength and coordination Assessment IMPRESSION: Cynthia Blanco is a 43 year old female with the following diagnosis and co-morbidities: Body mass index is 62.96 kg/m . Diagnosis noted as above, no additional diagnosis at this time. This patient does meet the criteria for a surgical weight loss procedure according to NIH guidelines. PLAN: The plan of treatment for Cynthia Blanco is to continue with the consultations and tests ordered today in hopes of qualifying for pre-operative clearance for bariatric surgery. I have reviewed with this patient needed nutritional changes, post-operative recovery, and the potential for excess skin following surgery and subsequent weight loss. Risks of nicotine before and after bariatric surgery and risks of postoperative adverse events (post-operative and beyond) were also discussed with patient. Furthermore, information regarding probable and potential postoperative complications, dietary and medical postoperative limitations, and potential cosmetic sequelae has been given to patient. Health risks associated with obesity, alternatives to surgery, alternative forms of surgery, pre-surgical strategies to reduce risks, potential psychological adjustment issues, post-surgical commitment (aftercare program) were also explained. All questions were answered. Patient understood the risks and benefits and agreed to proceed with surgery. Patient is interested in: Sleeve gastrectomy She is not comfortable with RYGB VTE prophylaxis for 1 month after surgery I spent a total of 60 minutes on the date of the service which included preparing to see the patient, [id number] patient care, completing clinical documentation, obtaining and/or reviewing separately obtained history, and counseling and educating the patient/family/caregiver. Caprice Grace MD Advanced Laparoscopic and Bariatric Surgery documented in this encounter [facility] 05-01-2024 History of Presen t illness Narrative [facility] EVALUATION DATE OF SERVICE: May 05, 2024 TIME OF SERVICE: 8:52-9:56am [facility] C[facility]: [facility] CPT CODE: - [id number] Virtual Psych Diagnostic Eval + Brief assessment w/ scoring & documentation x3 BILLING CODE: ENDO PSYL MAIN [employer] SESSION #: 1 The patient e-signed the Informed Consent for Psychological Evaluation & Care Form, and the [facility] health care insurance benefits, fees for service, emergency procedures, and the limits of confidentiality that may pertain with any given case were discussed with the patient. The patient was given a copy of the consent form on [employer]. The patient consented to a virtual visit and their location was confirmed. Physical location at time of appt: Home IDENTIFYING INFORMATION Ms. Cynthia Blanco is a 43 year old female. She was referred by Dr. Grace. Ms. Blanco is seeking gastric sleeve for morbid obesity. She completed the majority of a pre-surgical bariatric program in [place] last year before moving to [place] in June 2023. COLLATERAL PARTIES PRESENT: none. MOTIVATION FOR SURGERY / UNDERSTANDING OF PROCEDURE / EXPECTATIONS: Ms. Blanco notes she is motivated for surgery by diabetes. The patient has a basic understanding of the surgery, risks, and benefits. She has talked with other people who have undergone the procedure. Her aunt underwent surgery and had positive outcomes. Specific areas of understanding that should be addressed include nutrition after surgery, risks associated with surgery, unrealistic expectations post surgery, and behavioral changes necessary. The patient expects to lose 200 lbs. following surgery over 12 months, suggesting unrealistic weight loss expectations. She was amenable to education about more realistic expectations. Other expectations include improved diabetes, decreased pain, and smaller clothes size. Educated patient regarding expected weight loss after surgical procedure and timeline of weight loss/surgery recovery. CAPACITY TO CONSENT: Ms. Blanco evidences the following concerns regarding capacity to consent: none noted. MEDICAL PROBLEMS ACTIVE PROBLEM LIST Controlled Type 2 Diabetes Mellitus Without Complication, With Long-Term Current Use of Insulin (Hcc) IUD (Intrauterine Device) in Place Lung Nodules Primary Hypertension Obstructive Sleep Apnea Pulmonary Embolism (Hcc) Past surgeries? Yes PAST SURGICAL HISTORY Procedure Laterality Date HYSTEROSCOPY, DIAGNOSTIC (SEPARATE 12/2022 iud inserted when there was no prior IUD found INSERTION OF IUD 12/2022 MIrena TONSILLECTOMY HX 1989 History of psychological complications post-surgery? No MEDICATIONS Current Outpatient Medications Medication Sig LANTUS SOLOSTAR U-100 INSULIN 100 unit/mL (3 mL) Inject 15 Units subcutaneously two times a day. levonorgestrel (MIRENA) 21 mcg/24 hr (8 yrs) 52 mg IUD 1 Each by INTRAUTERINE route one time only. Cholecalciferol, Vitamin D3, (VITAMIN D-3) 50 mcg (2,000 unit) cap Take 2 capsules by mouth once daily. insulin needles, DISPOSABLE, (LITE TOUCH INSULIN PEN NEEDLES) 31 gauge x 5/16 1 Each five times a day. blood sugar diagnostic (BLOOD GLUCOSE TEST) test strip 1 Strip five times a day. Use as instructed atorvastatin (LIPITOR) 20 mg tablet Take 20 mg by mouth daily at bedtime. carvedilol (COREG) 6.25 mg tablet Take 1 tablet by mouth every 12 hours. furosemide (LASIX) 20 mg tablet Take 1 tablet by mouth every afternoon. NOVOLOG FLEXPEN U-100 INSULIN 100 unit/mL (3 mL) INJECT 3 UNITS AT EACH MEAL PLUS 1 UNIT FOR EVERY 20 MG /DL OVER 100 ON GLUCOMETER. MAX DAILY USE 40 UNITS PER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 Pap: 12/2022 negative - done when under anesthesia for IUD insertion HPV: 12/2022 negative History of abnormal pap: Yes age [age] did not need colposcopy or procedure Last mammogram: today, pending Abnormal mammogram - none Sexually active: Yes History of STDS: None Patient concerns for STD exposure: No. Time with current partner: 6 years Pain with intercourse: No Postcoital bleeding: No OB History T0 L0 SAB0 IAB0 Ectopic0 Multiple0 Live Births0 [employer] Supervisor History LMP: IUD Age at Menarche: Age at First : Age at Menopause: Al[employer] Supervisor History Comments: Sexual Activity: Yes; Male Contraception: I.U.D. PAST MEDICAL HISTORY Diagnosis Date Lung nodules Obstructive sleep apnea Primary hypertension PTSD (post-traumatic stress disorder) Pulmonary embolism (HCC) 2020 Type 2 diabetes (HCC) PAST SURGICAL HISTORY Procedure Laterality Date HYSTEROSCOPY, DIAGNOSTIC (SEPARATE 12/2022 iud inserted when there was no prior IUD found INSERTION OF IUD 12/2022 MIrena TONSILLECTOMY HX 1989 FAMILY HISTORY Problem Relation Age of Onset Diabetes Father Drug abuse Half-sister Diabetes Paternal Aunt great SOCIAL HISTORY Social History Tobacco Use Smoking status: Never Smokeless tobacco: Never Vaping Use Vaping Use: Former Substances: Nicotine Devices: Pre-filled or refillable cartridge Substance Use Topics Alcohol use: Yes Comment: occ Drug use: Never REVIEW OF SYSTEMS Abdomen: No abdominal pain, nausea, vomiting, diarrhea, or constipation. No bloating, early satiety, indigestion, or increased flatulence. Bladder: No dysuria, gross hematuria, urinary frequency, urinary urgency, or incontinence. Breast: No breast lumps, nipple d/c, overlying skin changes, redness or skin retraction. Allergies and current medication updated:Yes EXAM: BP 135/85[on wrist cuff[ Ht 5' 6.5 (1.69m) Wt 402 lb (182.3kg) BMI 63.92 kg/(m^2). GENERAL: pleasant, female in no apparent distress HEENT: Normocephalic, atraumatic, mucus membranes moist, and no lesions NECK: Supple, full range of motion, no adenopathy, and thyroid normal DERMATOLOGY: Normal, without lesions, non-icteric, and non-hirsute BREAST: soft, non-tender, symmetric, no dominant mass, normal nipple-areolar complex, no lymphadenopathy, and no nipple discharge CHEST: Normal inspiratory effort ABDOMEN: soft, non-tender, difficult exam due to body habitus PELVIC: external genitalia normal, normal Bartholin's glands, urethra, Ramireno's glands, no vulvar lesions, no cervical lesions, physiologic discharge present, normal appearing perineal body and perianal region, IUD strings visible BIMANUAL: non-tender, difficult exam due to body habitus RECTOVAGINAL: deferred. NEURO: alert and oriented x3,exam grossly non-focal EXTREMITIES: normal ASSESSMENT/PLAN: 1) Health maintenance: Pap/HPV up to date. Mammogram ordered. Nutrition, exercise and routine health maintenance exams reviewed. 2. Class 3 severe obesity with body mass index (BMI) of 60.0 to 69.9 in adult, unspecified obesity type, unspecified whether serious comorbidity present (HCC) - ICD9: 278.01, V85.44, ICD10: E66.01, Z68.44 - Cynthia had been in bariatric program with goal of metabolic surgery prior to moving to [place] - [facility] 3) Contraception: IUD. Contraceptive options reviewed and information provided. 4) STD screening: Declined STD check. 5) Follow up one year or sooner as needed Rachel Corrigan APRN.JHONNY documented in this encounter [facility] 04-08-2024 History of Presen t illness Narrative Radiology Service Progress Note PATIENT NAME: Cynthia Blanco DATE OF SERVICE: April 08, 2024 TIME: 1:56 PM PATIENT IDENTITY VERIFICATION COMPLETED USING TWO (2) IDENTIFIERS: Name and Date of confirmed by patient verbally. FALL SCREENING: Has the patient had 2 falls in the last year or 1 fall with injury or currently using an Ambulatory Assistive Device (Walker, Cane, Wheelchair, Crutches, etc.)? No PATIENT GENDER DATA: Female. status: : No status: NO. PATIENT RELEVANT IMPLANT DATA REVIEWED: Not Applicable PATIENT PRESENTS WITH AN IMPLANTABLE OR ATTACHED ROOM SERVICE SUPERVISOR: No RADIOLOGY DEPARTMENT: Mammography PERIPHERAL IV DATA: Not applicable SIGNED BY: Nacho Yipo Leonardo April 08, 2024 1:56 PM documented in this encounter [facility] 04-02-2024 Telephone encounter Note Patient received her my chart message. Lorraine Olea MA [facility] 04-02-2024 Miscellaneous Notes Patient received her my chart message. Lorraine Olea MA Please notify patient of lab results. Liver, kidney, and thyroid function normal. Blood sugar was elevated at 128. Hgb A1C was at goal - 6.5 Blood counts were within normal limits. Vitamin D level is low at 17.3 - recommend vitamin D3 4000 international unit(s) daily, see Rx Cholesterol levels were at goal. Total cholesterol was 170. Triglycerides 109. HDL 50. LDL 98. Continue current medications Thank you Donna William APRN.JHONNY documented in this encounter [facility] 04-02-2024 Telephone encounter Note Please notify patient of lab results. Liver, kidney, and thyroid function normal. Blood sugar was elevated at 128. Hgb A1C was at goal - 6.5 Blood counts were within normal limits. Vitamin D level is low at 17.3 - recommend vitamin D3 4000 international unit(s) daily, see Rx Cholesterol levels were at goal. Total cholesterol was 170. Triglycerides 109. HDL 50. LDL 98. Continue current medications Thank you Donna William APRN.JHONNY [facility] 03-11-2024 History of Presen t illness Narrative Subjective Cynthia Blanco is a 43 year old female here today for diabetes, establish care. I reviewed past medical, surgical, social, and family histories today and updated chart. Allergies, chronic medications, and supplements were also reviewed. HPI New patient Transferring care here due to insurance Lives with boyfriend Was very ill with bronchitis about 3 weeks ago, went to [facility], CT chest done showing multiple nodules. Treated with levaquin Feeling better overall Still has a cough here and there Some wheezing Really tired Had a follow up visit with head trimmer - Dr Duffy on 02/26/24. Prescribed augmentin, prednisone, ipratropium nasal spray. Instructed to fu 3 months She use to vape - quit in 2018 No tobacco No history of asthma or COPD She has obstructive sleep apnea, Dr Duffy ordered sleep study She has type 2 diabetes diagnosed 3 years ago May - checks sugar prior to eating 3-4 times per day Novolog 3 units plus ss with meals Lantus 15 units twice a day 258 - highest 68 - lowest Averaging in the 100s She is staying away from artificial sugars Spaghetti, chicken nuggets, hamburger, tuna noodle casserole - dinner Lunch ramen Breakfast - skips it a lot but trying to eat - convenience foods Was admitted to hospital May 2021 - pulmonary embolism Told it was caused by progesterone Was started on xarelto - hemorrhaged from uterus IUD was placed She wants to have children Was told in the past she can't have kids but was not told why Last pap Dec 2022 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 No past surgical history on file. ALLERGIES Claritin [Loratadine] MEDICATIONS insulin needles, DISPOSABLE, (LITE TOUCH INSULIN PEN NEEDLES) 31 gauge x 5/16 1 Each. atorvastatin (LIPITOR) 20 mg tablet Take 20 mg by mouth daily at bedtime. carvedilol (COREG) 6.25 mg tablet Take 1 tablet by mouth every 12 hours. furosemide (LASIX) 20 mg tablet Take 1 tablet by mouth every afternoon. NOVOLOG FLEXPEN U-100 INSULIN 100 unit/mL (3 mL) INJECT 3 UNITS AT EACH MEAL PLUS 1 UNIT FOR EVERY 20 MG /DL OVER 100 ON GLUCOMETER. MAX DAILY USE 40 UNITS PER DAY LANTUS SOLOSTAR U-100 INSULIN 100 unit/mL (3 mL) INJECT 15 UNITS SUBCUTANEOUSLY TWICE DAILY lisinopril (ZESTRIL) 10 mg tablet Take 1 tablet by mouth every 12 hours. metFORMIN (GLUCOPHAGE) 500 mg tablet Take 1 tablet by mouth every 12 hours. potassium chloride (K-TAB) 10 mEq tablet Take 1 tablet by mouth every afternoon. Insulin [place], Disposable, 32 gauge x 5/32 four times daily. USE DIRECTED. ipratropium bromide (ATROVENT) 42 mcg (0.06 %) nasal spray Use 2 Sprays in the nose three times a day. azithromycin (ZITHROMAX) 250 mg tablet (Patient not taking: Reported on 03/11/2024) levoFLOXacin (LEVAQUIN) 750 mg tablet Take 1 tablet by mouth every afternoon. (Patient not taking: Reported on 03/11/2024) oseltamivir (TAMIFLU) 75 mg capsule Take 1 capsule by mouth every 12 hours. (Patient not taking: Reported on 03/11/2024) No family history on file. Social History Tobacco Use Smoking status: Never Vaping Use Vaping Use: Former Substances: Nicotine Devices: Pre-filled or refillable cartridge Substance Use Topics Alcohol use: Yes Comment: occ Drug use: Never Review of Systems Constitutional: Negative for appetite change, chills, fatigue, fever and unexpected weight change. HENT: Positive for congestion. Negative for ear pain, rhinorrhea and sore throat. Doing nasal rinse for sinuses Eyes: Negative for pain, discharge, itching and visual disturbance. Respiratory: Positive for cough (occasionally productive) and wheezing. Negative for shortness of breath. Cardiovascular: Negative for chest pain, palpitations and leg swelling. Gastrointestinal: Negative for abdominal pain, constipation, diarrhea, nausea and vomiting. Genitourinary: Negative for difficulty urinating. Musculoskeletal: Negative for arthralgias. Skin: Negative for rash. Neurological: Negative for dizziness, tremors, weakness and headaches. Psychiatric/Behavioral: Negative for dysphoric mood and sleep disturbance. The patient is not nervous/anxious. Objective BP 134/89 Pulse 77 Temp 98 Ht 5' 7 (1.70m) Wt 388 lb (176.0kg) SpO2 98% BMI 60.76 kg/(m^2). Physical Exam Constitutional: Appearance: Normal appearance. She is well-developed. She is not diaphoretic. HENT: Head: Normocephalic and atraumatic. Right Ear: Hearing, tympanic membrane, ear canal and external ear normal. Left Ear: Hearing, tympanic membrane, ear canal and external ear normal. Nose: Nose normal. Mouth/Throat: Lips: [place]. Mouth: Mucous membranes are moist. Pharynx: Oropharynx is clear. Eyes: General: Lids are normal. Extraocular Movements: Extraocular movements intact. Conjunctiva/sclera: Conjunctivae normal. Pupils: Pupils are equal, round, and reactive to light. Neck: Thyroid: No thyroid mass or thyromegaly. Vascular: Normal carotid pulses. No carotid bruit. Cardiovascular: Rate and Rhythm: Normal rate and regular rhythm. Pulses: Radial pulses are 2+ on the right side and 2+ on the left side. Dorsalis pedis pulses are 2+ on the right side and 2+ on the left side. Posterior tibial pulses are 2+ on the right side and 2+ on the left side. Heart sounds: Normal heart sounds. No murmur heard. Pulmonary: Effort: Pulmonary effort is normal. Breath sounds: Normal breath sounds. No wheezing, rhonchi or rales. Abdominal: General: Bowel sounds are normal. Palpations: Abdomen is soft. Tenderness: There is no abdominal tenderness. Musculoskeletal: General: Normal range of motion. Cervical back: Normal range of motion. Lymphadenopathy: Cervical: No cervical adenopathy. Upper Body: Right upper body: No supraclavicular adenopathy. Left upper body: No supraclavicular adenopathy. Skin: General: Skin is warm and dry. Findings: No lesion or rash. Neurological: General: No focal deficit present. Mental Status: She is alert and oriented to person, place, and time. Cranial Nerves: No cranial nerve deficit. Sensory: Sensation is intact. Motor: Motor function is intact. Coordination: Coordination is intact. Gait: Gait normal. Psychiatric: Attention and Perception: Attention and perception normal. Mood and Affect: Mood and affect normal. Speech: Speech normal. Behavior: Behavior normal. Behavior is cooperative. Cognition and Memory: Cognition and memory normal. Judgment: Judgment normal. ASSESSMENT/PLAN: 1. Lung nodules - ICD9: 793.19, ICD10: R91.8 (primary diagnosis) CT Chest done at [facility] 02/24/24 - multiple bilateral lung nodules, largest 8 mm Has FU with head trimmer in May 2. Encounter for screening mammogram for breast cancer - ICD9: V76.12, ICD10: Z12.31 - Set up for mammogram, yearly mammogram recommended - [facility] SCREENING 3. Screening for cervical cancer - ICD9: V76.2, ICD10: Z12.4 - CONSULT TO COVER CUTTER 4. IUD (intrauterine device) in place - ICD9: V45.51, ICD10: Z97.5 - CONSULT TO COVER CUTTER 5. Fertility testing - ICD9: V26.21, ICD10: Z31.41 - CONSULT TO COVER CUTTER 6. Controlled type 2 diabetes mellitus without complication, with long-term current use of insulin (HCC) - ICD9: 250.00, V58.67, ICD10: E11.9, Z79.4 - Control undetermined, due for labs - Continue current medications - metformin 500 mg BID, lantus insulin 15 units BID, novolog insulin with meals - Statin prescribed - atorvastatin - Blood glucose monitoring on a four times daily schedule - Counseled on healthy diet and regular exercise - Follow up in 3 months, sooner should any other issues arise. - PEN NEEDLE, DIABETIC 31 GAUGE X 5/16 - BLOOD SUGAR DIAGNOSTIC STRIPS - LIPID PANEL BASIC - COMPREHENSIVE METABOLIC PANEL - COMPLETE BLOOD COUNT - THYROID STIMULATING HORMONE - HEMOGLOBIN A1C 7. Primary hypertension - ICD9: 401.9, ICD10: I10 - Controlled - Continue current medications - coreg 6.25 mg BID, lisinopril 10 mg daily Also on Lasix 20 mg daily - Recommend home blood pressure monitoring, to bring results to next visit - Encouraged sodium restriction, DASH or Mediterranean diet - Recommend regular aerobic exercise - LIPID PANEL BASIC - COMPREHENSIVE METABOLIC PANEL - COMPLETE BLOOD COUNT - THYROID STIMULATING HORMONE - HEMOGLOBIN A1C 8. Vitamin D deficiency - ICD9: 268.9, ICD10: E55.9 - VITAMIN D 25 HYDROXY FU 3 months Donna William APRN.OUTSIDE PROPERTY AGENT documented in this encounter [facility] [facility] History of Presen t illness Narrative Images from the original note were not included. PULMONARY MEDICINE HISTORY AND PHYSICAL Patient Name: Cynthia Blanco PRIMARY CARE PHYSICIAN: No primary care provider on file. REFERRING PHYSICIAN: Self CHIEF COMPLAINT: here for evaluation of cough HISTORY OF PRESENT ILLNESS: Cynthia Blanco is a 43 year old female, There were no vitals taken for this visit., with a history of JOSE ENRIQUE, DM, HTN who is here for cough. This patient is here for first Pulmonary office visit and consultation I reviewed available objective data including imaging as available. Symptoms started almost 2 weeks ago Has sinus congestion drainage and cough Sputum productive with clear secretions same is her nose Received levofloxacin with temporary relief Had CT chest in [place] which showed ?? GGO History reviewed. No pertinent past medical history. History reviewed. No pertinent surgical history. History reviewed. No pertinent family history. No reported family hx of ILD fibrosis, PAH, Tb, lung cancer, A1AT deficiency Social History Tobacco Use Smoking status: Never Vaping Use Vaping Use: Former Substances: Nicotine Devices: Pre-filled or refillable cartridge Substance Use Topics Alcohol use: Yes Comment: occ Drug use: Never Ambulatory, see vaccine HX, CURRENT OUTPATIENT MEDICATIONS: atorvastatin (LIPITOR) 20 mg tablet Take 20 mg by mouth daily at bedtime. azithromycin (ZITHROMAX) 250 mg tablet carvedilol (COREG) 6.25 mg tablet Take 1 tablet by mouth every 12 hours. furosemide (LASIX) 20 mg tablet Take 1 tablet by mouth every afternoon. NOVOLOG FLEXPEN U-100 INSULIN 100 unit/mL (3 mL) INJECT 3 UNITS AT EACH MEAL PLUS 1 UNIT FOR EVERY 20 MG /DL OVER 100 ON GLUCOMETER. MAX DAILY USE 40 UNITS PER DAY LANTUS SOLOSTAR U-100 INSULIN 100 unit/mL (3 mL) INJECT 15 UNITS SUBCUTANEOUSLY TWICE DAILY levoFLOXacin (LEVAQUIN) 750 mg tablet Take 1 tablet by mouth every afternoon. lisinopril (ZESTRIL) 10 mg tablet Take 1 tablet by mouth every 12 hours. metFORMIN (GLUCOPHAGE) 500 mg tablet Take 1 tablet by mouth every 12 hours. potassium chloride (K-TAB) 10 mEq tablet Take 1 tablet by mouth every afternoon. Insulin [place], Disposable, 32 gauge x 5/32 four times daily. USE DIRECTED. oseltamivir (TAMIFLU) 75 mg capsule Take 1 capsule by mouth every 12 hours. predniSONE (DELTASONE) 20 mg tablet Take 2 tablets by mouth once daily for 5 days. amoxicillin-clavulanate potassium (AUGMENTIN) 875-125 mg per tablet Take 1 tablet by mouth every 12 hours for 10 days. ipratropium bromide (ATROVENT) 42 mcg (0.06 %) nasal spray Use 2 Sprays in the nose three times a day. ALLERGIES: ALLERGIES Allergen Reactions Claritin [Loratadin* Other: See Comments Lymph nodes swell REVIEW OF SYSTEMS 12 point review of system are performed and are negative other than was mentioned in HPI PHYSICAL EXAMINATION: VITAL SIGNS: BP 169/102 Pulse 91 Temp (Src) 96.8 (Temporal) Resp 19 Ht 5' 7 (1.70m) Wt 396 lb (179.6kg) SpO2 97% BMI 62.01 kg/(m^2). General appearance: NAD, conversant, no acute distress Eyes: anicteric sclerae, moist conjunctivae; no lid-lag; PERRLA HENT: Atraumatic; oropharynx clear with moist mucous membranes and no mucosal ulcerations; normal hard and soft palate Neck: Trachea midline; full range of motion, supple, no thyromegaly or lymphadenopathy Lungs: decrease bilateral air entry , with normal respiratory effort and no intercostal retractions CV: RRR, no MRGs, no significant edema Abdomen: Soft, non-tender; no masses or HSM Extremities: No peripheral edema or extremity lymphadenopathy Skin: Normal temperature, turgor and texture; no rash, ulcers or subcutaneous nodules Psych: Appropriate affect, alert and oriented to person, place and time LAST LAB RESULTS: No results found for this basename: inr:1,ptsec:1 No results found for: GLUC, K, NA, CHLOR, CO2, CREAT, BUN, ANION, CA, TPROT, ALB, TBILI, ALKPHOS, AST, ALT No results found for: GLUC DATA: Diagnostic tests reviewed for today's visit, films/specimens were personally reviewed by me: OTHER TESTING: PFT: NA CXR: No results found. CT Chest: Last CT/CTA Chest/Lungs No resulted procedures found. No results found. Echo: No results found for this or any previous visit (from the past 86662 hour(s)). Vaccines: There is no immunization history on file for this patient. Medications reviewed Education provided today regarding the stated disease states IMPRESSIONS: 1. Acute bronchitis, unspecified organism - ICD9: 466.0, ICD10: J20.9 (primary diagnosis) 2. JOSE ENRIQUE (obstructive sleep apnea) - ICD9: 327.23, ICD10: G47.33 3. Other acute recurrent sinusitis - ICD9: 461.9, ICD10: J01.81 4. Acute cough - ICD9: 786.2, ICD10: R05.[address] of the chest - ICD9: 793.2, ICD10: R93.89 6. Lung nodule - ICD9: 793.11, ICD10: R91.1 PLAN: Patient with acute bronchitis and sinusitis Likely infectious in etiology Had partial response to levofloxacin Likely viral with bacterial superinfection Recommend augmentin Recommend prednisone short course, discussed side effects and BS monitoring Start nasal atrovent Start nasal rinse Consider adding ICS/LABA and Flonase if no respsonse to initial approach Lung nodule is likely infectious RTC in 3 months Written and verbal health teaching given to patient, patient verbalizes understanding and agrees with treatment plan. Electronically Signed: Clive Duffy MD February 26, 2024 documented in this encounter [facility] 02-26-2024 Miscellaneous Notes Reason for Call: Patient seeking Pulmonary appointment per 02/23/24 [facility] discharge instructions for ground glass appearance on chest xray and chest CT. Patient complains of worsening cough. Outcome: Patient was conferenced to Sudheer in [facility] scheduling within 24 hours and was advised to schedule with Internal or Family medicine, if no Pulmonary appointments within recommended time frame. Reason for Disposition SEVERE coughing spells (e.g., whooping sound after coughing, vomiting after coughing) Cough lasts > 3 weeks Answer Assessment - Initial Assessment Questions 1. ONSET: cough initially started 3.5 weeks ago, but became worse last night when she lays down 2. SEVERITY: coughs periodically, has coughing fits at times with last episode 30-45 minutes ago, coughing fits described as severe at times lasting a couple minutes 3. SPUTUM: clear 4. HEMOPTYSIS: one 5. DIFFICULTY BREATHING: yes, intermittent, both at rest and with movement, same as difficulty breathing when she was in [facility] 02/23/24. 6. FEVER: no 7. CARDIAC HISTORY: none 8. LUNG HISTORY: pulmonary embolism 3 year ago 9. PE RISK FACTORS: yes, see above 10. OTHER SYMPTOMS: none 11. : no, has IUD with irregular cycles 12. TRAVEL: none Protocols used: Cough - Acute Sna-Wffyieiksk-PROKG-AH, Cough - Rqonplj-YKPRK-TF documented in this encounter [facility] 02-24-2024 Discharge summary Note Date/Time February 23, 2024 11:08pm [facility] Medical Records Department [address] [address] Emergency Department Summary 02/23/24 MR#: [id number] Acct: [id number] Name: CYNTHIA BLANCO Rep #:[id number] 3 : 1980 43 From: Tiago Thompson MD PCP: Care Physician,No Primary Status :REG ER Location: ED HPI History of Present Illness Chief Complaint: Chest Pain Informant: patient Narrative Narrative: Patient started having a cough yesterday occasionally productive of clear sputum. She has occasionally had dyspnea with exertion even when she is not coughing. She does not have asthma. 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 It is not present right now. At rest right now she is not dyspneic. She has had no fevers or chills. 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 No travel out of the region recently. No history of heart or lung problems, she is a diabetic and takes metformin. States 2 years ago she was diagnosed with a PE, she does not know the contacts. However, she states she did not take anticoagulants because she could not afford$500 per month. When asked if she considered other medications, she states she did not follow-up and was not aware that there were cheaper alternatives. She denies any recent immobilization, hospitalization, long travel, surgery, leg pain or swelling, presyncope or syncope. [facility] Medical History Diabetes Elevated LDL cholesterol level H/O blood clots HTN (hypertension) Home Medications carvedilol 6.25 mg tablet 6.25 mg PO BID 02/10/24 [History Last Taken Unknown] furosemide 20 mg tablet 20 mg PO DAILY 02/10/24 [History Last Taken Unknown] lisinopril 10 mg tablet 10 mg PO BID 02/10/24 [History Last Taken Unknown] metformin 500 mg tablet 500 mg PO BID 02/10/24 [History Last Taken Unknown] potassium chloride 10 mEq tablet,extended release (Klor-Con) 10 meq PO DAILY 02/10/24 [History Last Taken Unknown] levofloxacin 750 mg tablet 750 mg PO Q24H #5 tabs 02/24/24 [Rx Last Taken Unknown] Allergy/AdvReac Type Severity Reaction Status Date / Time loratadine [From Claritin] Allergy Swelling Verified 02/23/24 22:44 Surgical History (Updated 02/10/24 @ 23:[address] Jesus Calloway, DO) H/O dilation and curettage Hx of tonsillectomy Social History Smoking Status: Former smoker ROS ROS ED Constitutional Constitutional ED: Denies chills or fever(s) Eyes Eyes: Denies change in vision or diplopia ENT ENT ED: Denies rhinorrhea or sore throat Cardiovascular Cardiovascular: Reports as per HPI and chest pain; Denies leg edema or palpitations Respiratory/Chest Respiratory/Chest: Reports cough, dyspnea on exertion and sputum Gastrointestinal Gastrointestinal: Denies abdominal pain, diarrhea, nausea or vomiting Genitourinary Genitourinary ED: Denies dysuria or hematuria Musculoskeletal Musculoskeletal: Denies back pain or neck pain Integumentary Denies abscess or rash Neurologic Neurologic: Denies headache(s), paresthesias or weakness Psychiatric Psychiatric: Denies anxiety or suicidal thoughts EXAM Physical Exam Const Vital Signs: 02/23/24 22:42 02/23/24 22:56 02/23/24 23:42 Temperature 97.9 F Temperature Source Temporal Pulse Rate 76 98 Respiratory Rate 20 H 16 Respiratory Effort Normal Non-Labored Blood Pressure 143/84 H 129/82 H Blood Pressure Mean 103 97 Pulse Ox 100 99 Oxygen Delivery Method Room Air Room Air 02/24/24 00:00 02/24/24 01:00 02/24/24 02:22 Temperature Temperature Source Pulse Rate 98 73 79 Respiratory Rate 16 26 H 16 Respiratory Effort Blood Pressure 130/85 H 122/76 H 132/92 H Blood Pressure Mean 100 91 105 Pulse Ox 99 100 98 Oxygen Delivery Method Room Air Room Air Room Air Positive well nourished, well developed and obese General Appearance ED: well developed and NAD Nutritional Appearance: obese HEENT Reports moist mucous membranes normocephalic and atraumatic Eyes PERRL and EOMs intact bilaterally Neck full ROM and supple Chest Wall inspection of chest normal and palpation of chest normal Resp normal respiratory effort and clear to auscultation bilaterally Cardio regular rate, regular rhythm and no murmurs Rate: Negative for tachycardic Peripheral Pulses: pulses 2+ throughout GI non-tender and non-distended Auscultation: normoactive bowel sounds Palpation: soft Back/Spine no CVA tenderness General Back: other FROM Extremity normal to inspection General Extremety ED: Negative for edema, pulses abnormal or tenderness General Extremity: Negative for edema or pulses abnormal Neuro oriented x3, CN's II-XII intact bilaterally and no sensory deficits noted Sensorium / Orientation: awake and alert Motor Exam: strength 5/5 throughout Skin no rashes or lesions noted and no wounds Heart Score History: Slightly/Non-Suspicious ECG: Normal Age: </= 45 years Risk Factors: 1 or 2 Risk Factors Troponin: </= Normal Limit Score: 1 MDM MDM MDM Narrative Medical decision making narrative: Initially considering PE given she has a history of it although she is not tachycardic and not hypoxic, performed a D-dimer, chest x-ray, EKG. EKG on my interpretation is normal. 2 view chest x-ray my interpretation is also normal. Radiology is in agreement with the chest x-ray. The D-dimer is slightly elevated. Therefore, I reflexively ordered a CTA after seeing that she had normal renal function. I happened to notice that this was just 2 weeks ago thatthis was last drawn. Additionally, she had a D-dimer done at that time which was also nonspecifically elevated like this 1 is. This led me to see that she had a CTA 2 weeks ago, it was negative for pulmonary embolism, and showed nonspecific groundglass infiltrates. The patient did not tell me that she was here 2 weeks ago until I asked her about all of this, she states she was here for the same thing and they treated me for pneumonia. Hence, this is why she came today and she wants to have the CAT scan. I advised her it is not necessary to put her kidneys at risk with contrast for another PE evaluation if she just had that ruled out, but I am willing to obtain a CT without contrast and she is agreeable. I reviewed the results as well as the report which I agree with, it appears to be identical to the CT that she had 2 weeks ago. However, radiology interprets the scan as similar but a little more prominent and not able to rule out pneumonia/infection, although he does not report that there is airspace consolidation. I do not think this is likely recurrent bacterial infectious etiology, and since it looks very similar without additional opacities, I do notthink repeating her labs are necessary emergently. In speaking with her about her visit 2 weeks ago, she was placed on a Z-Joaquín, she states it seemed to fix her cough and then later her cough seemed to gradually come back and is worse now. I did repeat her troponin, it is negative and lower than it was 2 weeks ago. There are other noninfectious etiologies that could explain groundglass opacities, this is nonspecific. I recommend that she follow-up for further evaluation, she may need test that are not available in the emergency departmentsuch as an echocardiogram, although her pattern on imaging is less likely to becardiogenic pulmonary edema. Differential here includes interstitial lung processes, fibrosis, nonfibrotic hypersensitivity pneumonitis, vasculitis, sarcoidosis, eosinophilic pneumonia although on her labs a couple weeks ago she did not have eosinophilia; as well as viral infections including pneumonia and bronchiolitis. To this effect, we did perform the only viral swab that we are able to obtain stat which is RSV/influenza/COVID, it is negative, but this does not rule out the possibility of other viral infections that could cause this. Of note the groundglass opacities in this patient are very few and they are peripheral. At this point given that she seemed to improve on antibiotics before, I am goingto put her on Levaquin 750 for 5 days, and refer her to pulmonology. She statesher prior PCP stopped taking her insurance, she was given pamphlet for PCPs thatshe can check to see if they take her insurance. Lab Data Attestation: I reviewed the patient's lab results. Labs: Laboratory Results - last 24 hr 02/23/24 02/23/24 00:08 23:21 D-Dimer Quant (PE/DVT) 0.79 H* Troponin I High Sens 11 Radiography Diagnostic Testing: Clinical Impression(s) from Imaging Studies Chest X-Ray 02/23/24 23:04 IMPRESSION: No radiographic evidence of acute cardiopulmonary disease. Electronically Signed: Daniela Thomason MD at 23:37 EDT , Chest CT 02/24/24 00:10 IMPRESSION: Ill-defined groundglass opacities are seen in the right lower lobe may represent pneumonia there are slightly more prominent when compared to the previous study. Multiple bilateral lung nodules are also noted have nonspecific appearance, the largest measures approximately 8 mm is in the superior segment of the right lower lobe, axial image 48, series 4. A short-term follow-up in 6 months is recommended to exclude a neoplastic process Electronically Signed: Daniela Thomason MD at 2:18 EDT Reading Location ID and State: [facility] / [place] Tel , Service support , Rhythm Strip Rhythm Strip: Sinus Rhythm Rate: 80 Ectopy: PVC(s) (Occasional) EKG Initial EKG: Attestation: I personally reviewed and interpreted this EKG as follows: Interpretation: Sinus Rhythm and No Acute Injury Pattern Comments: Normal EKG Discharge Plan Triage Chief Complaint: Chest Pain ED Provider: Tiago Thompson Dx/Rx/DC Orders Clinical Impression: YANES (dyspnea on exertion), Chest pain, non-cardiac, Ground glass opacity present on imaging of lung, Pulmonary nodule Instructions: ED Dyspnea Prescriptions: New levofloxacin 750 mg tablet 750 mg PO Q24H Qty: 5 0RF No Action furosemide 20 mg tablet 20 mg PO DAILY carvedilol 6.25 mg tablet 6.25 mg PO BID Rx Instructions: must administer with a meal/food potassium chloride [Klor-Con 10] 10 mEq tablet extended release 10 meq PO DAILY metformin 500 mg tablet 500 mg PO BID lisinopril 10 mg tablet 10 mg PO BID Primary Care Provider: Care Physician,No Primary Referrals: Shelton Sutherland DO [Med Staff - Active Staff] - As soon as possible (call for appt) Activity Restrictions/Additional Instructions: See included pamphlet for primary care doctors that you can contact to see if they take your insurance Disposition Disposition: Home, Self Care What to do if you have Problems For any increased pain, shortness of breath, bleeding, nausea or vomiting, chestpain, or any unexpected problems, contact your Primary Care Provider. Call [facility] ([phone]) or report to the closest Emergency Room. Call 911 if necessary. 02/24/24 0233 <Electronically signed by Tiago Thompson MD> Cosigner Signature (if applicable): CC: No Primary Care Physician ~ Signed [facility] Work Phone: Evaluation noteNo assessment information available [facility] Work Phone: Evaluation note* Diagnosis Acute bronchitis, unspecified organism- Primary JOSE ENRIQUE (obstructive sleep apnea) Obstructive sleep apnea (adult) (pediatric) Other acute recurrent sinusitis Acute cough Abnormal CT of the chest Nonspecific (abnormal) findings on radiological and other examination of other intrathoracic organs Lung nodule Solitary pulmonary nodule [facility] [place] [facility] Diagnosis Lung nodules- Primary Other nonspecific abnormal finding of lung field Encounter for screening mammogram for breast cancer Screening for cervical cancer Screening for malignant neoplasm of the cervix IUD (intrauterine device) in place Presence of intrauterine contraceptive device Fertility testing Controlled type 2 diabetes mellitus without complication, with long-term current use of insulin (HCC) Primary hypertension Unspecified essential hypertension Vitamin D deficiency Unspecified vitamin D deficiency [facility] Vitamin D deficiency- Primary Unspecified vitamin D deficiency [facility] Diagnosis Encounter for gynecological examination (general) (routine) without abnormal findings- Primary IUD (intrauterine device) in place Presence of intrauterine contraceptive device Screening for cervical cancer Screening for malignant neoplasm of the cervix Encounter for screening for human papillomavirus (HPV) Special screening examination for human papillomavirus (HPV) Encounter for screening mammogram for breast cancer Class 3 severe obesity with body mass index (BMI) of 60.0 to 69.9 in adult, unspecified obesity type, unspecified whether serious comorbidity present (HCC) [facility] Encounter for screening mammogram for breast cancer [facility] [place] [facility]* Diagnosis JOSE ENRIQUE (obstructive sleep apnea) Obstructive sleep apnea (adult) (pediatric) [facility] [place] [facility]* Diagnosis PTSD (post-traumatic stress disorder)- Primary Posttraumatic stress disorder Other specified eating disorder Psychological factors affecting morbid obesity (HCC) Psychic factors associated with diseases classified elsewhere [facility] [place] [facility]* Diagnosis Morbid obesity (HCC)- Primary Morbid obesity Dyslipidemia Other and unspecified hyperlipidemia Type 2 diabetes mellitus with morbid obesity (HCC) Obstructive sleep apnea Obstructive sleep apnea (adult) (pediatric) VTE (venous thromboembolism) Embolism and thrombosis of unspecified site [facility] Diagnosis Class 3 severe obesity with serious comorbidity and body mass index (BMI) of 60.0 to 69.9 in adult, unspecified obesity type (HCC)- Primary [facility] [place] [facility]* Diagnosis JOSE ENRIQUE (obstructive sleep apnea)- Primary Obstructive sleep apnea (adult) (pediatric) [facility] [place] [facility] Diagnosis Morbid obesity (HCC)- Primary Morbid obesity Dietary counseling and surveillance Dietary surveillance and counseling [facility] [place] [facility]* Diagnosis JOSE ENRIQUE (obstructive sleep apnea)- Primary Obstructive sleep apnea (adult) (pediatric) Acute bronchitis, unspecified organism Acute cough [facility] [place] [facility]* Diagnosis Controlled type 2 diabetes mellitus without complication, with long-term current use of insulin ([facility])- Primary Special screening examination for viral disease Special screening examination for unspecified viral disease Screening for HIV (human immunodeficiency virus) Special screening examination for other specified viral diseases Vitamin D deficiency Unspecified vitamin D deficiency [facility] [place] [facility]* Diagnosis NO SHOW- Primary [facility] [place] [facility]* Diagnosis Controlled type 2 diabetes mellitus without complication, with long-term current use of insulin ([facility]) [facility] [place] [facility]* Diagnosis Type 2 diabetes mellitus without retinopathy (HCC)- Primary Type II or unspecified type diabetes mellitus without mention of complication, not stated as uncontrolled RPE mottling of macula Other retinal disorders Optic disc pallor, bilateral Regular astigmatism of both eyes Regular astigmatism [facility] Diagnosis Controlled type 2 diabetes mellitus without complication, with long-term current use of insulin (HCC)- Primary [facility] Diagnosis Numbness and tingling in right hand- Primary Disturbance of skin sensation Pain in right hand [facility] Diagnosis Numbness of right hand- Primary Controlled type 2 diabetes mellitus without complication, with long-term current use of insulin ([facility]) [facility] [place] [facility]* Diagnosis Controlled type 2 diabetes mellitus without complication, with long-term current use of insulin (HCC) documented in this encounter [facility] note* Diagnosis Controlled type 2 diabetes mellitus without complication, with long-term current use of insulin (HCC) documented in this encounter [facility] note* Diagnosis Controlled type 2 diabetes mellitus without complication, with long-term current use of insulin (HCC) documented in this encounter [facility]* Diagnosis Encounter for screening mammogram for breast cancer [facility] Additional Instructions See included pamphlet for primary care doctors that you can contact to see if they take your [facility] Phone: [facility] for referral (narrative)* Diagnostic Procedure Only (Routine) - Pending Review Specialty Diagnoses / Procedures Referred By Alexus acosta Referred To Contact [facility] [place] Diagnoses JOSE ENRIQUE (obstructive sleep apnea) Procedures HOME SLEEP APNEA TEST (HSAT) SLEEP STD AIRFLOW HRT RATE&O2 SAT EFFORT UNATT Clive Duffy MD [address] [address] [place] [address] Referral ID Status Reason Start Date Expiration Date Visits Requested Visits Authorized [id number] Pending Review Auto-Generat ed Referral 02/26/2024 02/25/2025 1 1 [facility] for referral (narrative)* Outpatient Procedure (Routine) - Pending Review Specialty Diagnoses / Procedures Referred By Alexus acosta Referred [facility] Diagnoses Class 3 severe obesity with serious comorbidity and body mass index (BMI) of 60.0 to 69.9 in adult, unspecified obesity type (HCC) Procedures ECG COMPLETE ECG ROUTINE ECG W/LEAST 12 LDS W/I&R Elsy Dickerson APRN.CNP [address] [place] [address] [facility] [address] [address] Referral ID Status Reason Start Date Expiration Date Visits Requested Visits Authorized [id number] Pending Review Auto-Generat ed Referral 05/09/2024 05/09/2025 1 1 * Diagnostic Procedure Only (Routine) - Pending Review Specialty Diagnoses / Procedures Referred By Alexus t Referred To Contact [facility] Diagnoses Class 3 severe obesity with serious comorbidity and body mass index (BMI) of 60.0 to 69.9 in adult, unspecified obesity type (HCC) Procedures US ABD RIGHT UPPER QUADRANT US ABDOMINAL REAL TIME W/IMAGE LIMITED Elsy Dickerson, YESENIA.OUTSIDE PROPERTY AGENT [address] [place] [address] [facility] [place] [address] Referral ID Status Reason Start Date Expiration Date Visits Requested Visits Authorized [id number] Pending Review Auto-Generat ed Referral 05/09/2024 06/08/2025 1 1 [facility] for visit Narrative* Diagnostic Procedure Only (Routine) - Closed Specialty Diagnoses / Procedures Referred By Contac t Referred To Contact [facility] Diagnoses Encounter for screening mammogram for breast cancer Procedures JUDIT SCREENING SCREENING MAMMOGRAPHY BI 2-VIEW BREAST INC Donna Ballard TRANSPORTATION COORDINATOR.OUTSIDE PROPERTY AGENT [address] [place] [address] [facility] [address] [place] [address] Referral ID Status Reason Start Date Expiration Date V isits Requested Visits Authorized [id number] Closed Auto-Generate d Referral 03/11/2024 04/10/2025 1 1 [facility] for visit Narrative* Diagnostic Procedure Only (Routine) - Closed Specialty Diagnoses / Procedures [facility] Diagnoses JOSE ENRIQUE (obstructive sleep apnea) Procedures HOME SLEEP APNEA TEST (HSAT) SLEEP STD AIRFLOW HRT RATE&O2 SAT EFFORT Clive Baeza MD [address] [address] [facility] [place] [address] [place] [address] Referral ID Status Reason Start Date Expiration Date V isits Requested Visits Authorized [id number] Closed Auto-Generate d Referral 02/26/2024 02/25/2025 1 1 [facility] Summary Purpose Family History No Family History Records FoundNo Family History Records FoundNo Family History Records FoundNo Family History Records Found Advance Directives No Advanced Directives Records Found Advance Directive Response Recorded Date/ Time Living Will No February 10, 2024 10:43pm Power of Customer Care Manager No February 09 10:43pm Advance Directive Response Recorded Date/ Time Living Will No February 23, 2024 10:56pm Power of Customer Care Manager No February 22 10:56pm Chief Complaint and Reason for Visit Chief Complaint SOB Chief Complaint SOB CP Reason for Referral Specialty Diagnoses / Procedures Referred By Alexus acosta Referred To Contact [facility] Diagnoses Screening for cervical cancer IUD (intrauterine device) in place Fertility testing Procedures CONSULT TO COVER CUTTER OFFICE/OUTPATIENT [facility] MDM 60 MINUTES Donna William TRANSPORTATION COORDINATOR.OUTSIDE PROPERTY AGENT [address] [place] [address] Emy Bianchi MD [address] [place], [place] [address] [address] Referral ID Status Reason Start Date Expiration Date Visits Requested Visits Authorized [id number] Authorized PCP Requested Referral Auto-Generate d Referral 03/11/2024 03/11/2025 1 1 Specialty Diagnoses / Procedures Referred By Alexus acosta Referred To Contact [facility] Diagnoses Encounter for screening mammogram for breast cancer Procedures JUDIT SCREENING SCREENING MAMMOGRAPHY BI 2-VIEW BREAST INC CAD Donna William TRANSPORTATION COORDINATOR.OUTSIDE PROPERTY AGENT [address] [place] [address] [facility] [address] [place] [address] Referral ID Status Reason Start Date Expiration Date Visits Requested Visits Authorized [id number] Authorized Auto-Generat ed Referral 03/11/2024 04/10/2025 1 1 Specialty Diagnoses / Procedures Referred By Alexus t Referred To Contact Diagnoses Class 3 severe obesity with body mass index (BMI) of 60.0 to 69.9 in adult, unspecified obesity type, unspecified whether serious comorbidity present (HCC) Procedures CONSULT [facility] OFFICE/OUTPATIENT NEW HIGH MDM 60 MINUTES Rachel Corrigan, TRANSPORTATION COORDINATOR.OUTSIDE PROPERTY AGENT [address] [place] [address] Referral ID Status Reason Start Date Expiration Date Visits Requested Visits Authorized [id number] Authorized PCP Requested Referral 04/08/2024 04/08/2025 1 1 Specialty Diagnoses / Procedures Referred By Contgracy t Referred To Contact [facility] Diagnoses Encounter for gynecological examination (general) (routine) without abnormal findings Encounter for screening mammogram for breast cancer Procedures JUDIT SCREENING W RUTH SCREENING DIGITAL BREAST TOMOSYNTHESIS BI SCREENING MAMMOGRAPHY BI 2-VIEW BREAST INC CAD Rachel Corrigan, TRANSPORTATION COORDINATOR.OUTSIDE PROPERTY AGENT [address] [place] [place] [address] [facility] [address] [place] [address] Referral ID Status Reason Start Date Expiration Date Visits Requested Visits Authorized [id number] Authorized Auto-Generat ed Referral 04/08/2024 05/08/2025 1 1 Specialty Diagnoses / Procedures Referred By Alexus t Referred To Contact Ophthalmology / [facility] Diagnoses Controlled type 2 diabetes mellitus without complication, with long-term current use of insulin (HCC) Procedures CONSULT TO OPHTHALMOLOGY OFFICE/OUTPATIENT NEW HIGH MDM 60 MINUTES Donna William, TRANSPORTATION COORDINATOR.OUTSIDE PROPERTY AGENT [address] [place] [address] [place] [address] Referral ID Status Reason Start Date Expiration Date Visits Requested Visits Authorized [id number] Authorized PCP Requested Referral 06/13/2024 06/13/2025 1 1 Additional Source Comments INFORMATION SOURCE (unrecogn ized section and content) DATE CREATED AUTHOR 12/13/2023 Zoran Pearson [facility] DATE CREATED AUTHOR AUTHOR'S ORGANIZ ATION 03/01/2024 [facility] DATE CREATED AUTHOR AUTHOR'S ORGANIZ ATION 07/16/2025 [facility] DATE CREATED AUTHOR AUTHOR'S ORGANIZ ATION 09/05/2025 [facility] Care Teams (unrecognized sec tion and content) Team Status: Active Member Role Status Dates Neymar Diego CROWN IRONER OPERATOR, CROWN IRONER OPERATOR-C Primary Care Provider Active Team Status: Inactive Member Role Status Dates Neymar Diego CROWN IRONER OPERATOR, CROWN IRONER OPERATOR-C Primary Care Provider Active Dr. Jesus Calloway , Emergency Provider Active Team Status: Active Member Role Status Dates No Primary Care Physician Primary Care Provider Active Team Status: Inactive Member Role Status Dates Dr. Tiago Thompson MD Emergency Provider Active No Primary Care Physician Primary Care Provider Active Team Status: Inactive Member Role Status Dates Neymar Diego CROWN IRONER OPERATOR, CROWN IRONER OPERATOR-C Primary Care Provider Active Dr. Jesus Calloway , Attending Provider, Emergency Kurtis renteria Active Customer Experience Associate Relationship Specialty Start Date End Date Donna William, TRANSPORTATION COORDINATOR.OUTSIDE PROPERTY AGENT [address] [place] [address] PCP - General Family Medicine 03/11/24 Customer Experience Associate Relationship Specialty Start Date End Date Donna William, TRANSPORTATION COORDINATOR.OUTSIDE PROPERTY AGENT [address] [place] [address] PCP - General Family Medicine 03/11/24 Customer Experience Associate Relationship Specialty Start Date End Date Donna William, TRANSPORTATION COORDINATOR.OUTSIDE PROPERTY AGENT [address] [place] [address] PCP - General Family Medicine 03/11/24 Customer Experience Associate Relationship Specialty Start Date End Date Donna William, TRANSPORTATION COORDINATOR.OUTSIDE PROPERTY AGENT [address] [place] [address] PCP - General Family Medicine 03/11/24 Customer Experience Associate Relationship Specialty Start Date End Date Donna William, TRANSPORTATION COORDINATOR.OUTSIDE PROPERTY AGENT [address] [place] [address] PCP - General Family Medicine 03/11/24 Customer Experience Associate Relationship Specialty Start Date End Date Donna William, TRANSPORTATION COORDINATOR.OUTSIDE PROPERTY AGENT [address] [place] [address] PCP - General Family Medicine 03/11/24 Customer Experience Associate Relationship Specialty Start Date End Date Donna William APRN.OUTSIDE PROPERTY AGENT [address] [place] [address] PCP - General Family Medicine 03/11/24 Customer Experience Associate Relationship Specialty Start Date End Date Donna William TRANSPORTATION COORDINATOR.OUTSIDE PROPERTY AGENT [address] [place] [address] PCP - General Family Medicine 03/11/24 Customer Experience Associate Relationship Specialty Start Date End Date Donna William TRANSPORTATION COORDINATOR.OUTSIDE PROPERTY AGENT [address] [place] [address] PCP - General Family Medicine 03/11/24 Customer Experience Associate Relationship Specialty Start Date End Date Donna William TRANSPORTATION COORDINATOR.OUTSIDE PROPERTY AGENT [address] [place] [address] PCP - General Family Medicine 03/11/24 Customer Experience Associate Relationship Specialty Start Date End Date Donna William, TRANSPORTATION COORDINATOR.OUTSIDE PROPERTY AGENT [address] [place] [address] PCP - General Family Medicine 03/11/24 Customer Experience Associate Relationship Specialty Start Date End Date Donna William, TRANSPORTATION COORDINATOR.OUTSIDE PROPERTY AGENT [address] [place] [address] PCP - General Family Medicine 03/11/24 Customer Experience Associate Relationship Specialty Start Date End Date Donna William, TRANSPORTATION COORDINATOR.OUTSIDE PROPERTY AGENT [address] [place] [address] PCP - General Family Medicine 03/11/24 Customer Experience Associate Relationship Specialty Start Date End Date Donna William APRN.OUTSIDE PROPERTY AGENT [address] [place] [address] PCP - General Family Medicine 03/11/24 Customer Experience Associate Relationship Specialty Start Date End Date Donan William TRANSPORTATION COORDINATOR.OUTSIDE PROPERTY AGENT [address] [place] [address] PCP - General Family Medicine 03/11/24 Customer Experience Associate Relationship Specialty Start Date End Date Donna William TRANSPORTATION COORDINATOR.OUTSIDE PROPERTY AGENT [address] [place] [address] PCP - General Family Medicine 03/11/24 Customer Experience Associate Relationship Specialty Start Date End Date Donna William TRANSPORTATION COORDINATOR.OUTSIDE PROPERTY AGENT [address] [place] [address] PCP - General Family Medicine 03/11/24 Customer Experience Associate Relationship Specialty Start Date End Date Donna William TRANSPORTATION COORDINATOR.OUTSIDE PROPERTY AGENT [address] [place] [address] PCP - General Family Medicine 03/11/24 Customer Experience Associate Relationship Specialty Start Date End Date Donna William TRANSPORTATION COORDINATOR.OUTSIDE PROPERTY AGENT [address] [place] [address] PCP - General Family Medicine 03/11/24 Customer Experience Associate Relationship Specialty Start Date End Date Donna William TRANSPORTATION COORDINATOR.OUTSIDE PROPERTY AGENT [address] [place] [address] PCP - General Family Medicine 03/11/24 Customer Experience Associate Relationship Specialty Start Date End Date Donna William, TRANSPORTATION COORDINATOR.OUTSIDE PROPERTY AGENT [address] [place], [place] [id number] PCP - General Family Medicine 03/11/24 Customer Experience Associate Relationship Specialty Start Date End Date Donna William, TRANSPORTATION COORDINATOR.OUTSIDE PROPERTY AGENT [address] [place], [place] [address] PCP - General Family Medicine 03/11/24 Customer Experience Associate Relationship Specialty Start Date End Date Donna William, TRANSPORTATION COORDINATOR.OUTSIDE PROPERTY AGENT [address] [place], [place] [address] PCP - General Family Medicine 03/11/24 Customer Experience Associate Relationship Specialty Start Date End Date Donna William, TRANSPORTATION COORDINATOR.OUTSIDE PROPERTY AGENT [address] [place] [address] PCP - General Family Medicine 03/11/24 Goals (unrecognized section and content) Goals may be documented in a n alternate sectionGoals may be documented in an alternate section Source Comments (unrecognize d section and content) In the event this informatio n is protected by the Federal Confidentiality of Alcohol and Drug Abuse Patient Records regulations: The Federal rules restrict any use of the information to criminally investigate or prosecute any alcohol or drug abuse patient.[facility] the event this information is protected by the Federal Confidentiality of Alcohol and Drug Abuse Patient Records regulations: The Federal rules restrict any use of the information to criminally investigate or prosecute any alcohol or drug abuse patient.[facility] the event this information is protected by the Federal Confidentiality of Alcohol and Drug Abuse Patient Records regulations: The Federal rules restrict any use of the information to criminally investigate or prosecute any alcohol or drug abuse patient.[facility] the event this information is protected by the Federal Confidentiality of Alcohol and Drug Abuse Patient Records regulations: The Federal rules restrict any use of the information to criminally investigate or prosecute any alcohol or drug abuse patient.[facility] the event this information is protected by the Federal Confidentiality of Alcohol and Drug Abuse Patient Records regulations: The Federal rules restrict any use of the information to criminally investigate or prosecute any alcohol or drug abuse patient.[facility] the event this information is protected by the Federal Confidentiality of Alcohol and Drug Abuse Patient Records regulations: The Federal rules restrict any use of the information to criminally investigate or prosecute any alcohol or drug abuse patient.[facility] the event this information is protected by the Federal Confidentiality of Alcohol and Drug Abuse Patient Records regulations: The Federal rules restrict any use of the information to criminally investigate or prosecute any alcohol or drug abuse patient.[facility] the event this information is protected by the Federal Confidentiality of Alcohol and Drug Abuse Patient Records regulations: The Federal rules restrict any use of the information to criminally investigate or prosecute any alcohol or drug abuse patient.[facility] the event this information is protected by the Federal Confidentiality of Alcohol and Drug Abuse Patient Records regulations: The Federal rules restrict any use of the information to criminally investigate or prosecute any alcohol or drug abuse patient.[facility] the event this information is protected by the Federal Confidentiality of Alcohol and Drug Abuse Patient Records regulations: The Federal rules restrict any use of the information to criminally investigate or prosecute any alcohol or drug abuse patient.[facility] the event this information is protected by the Federal Confidentiality of Alcohol and Drug Abuse Patient Records regulations: The Federal rules restrict any use of the information to criminally investigate or prosecute any alcohol or drug abuse patient.[facility] the event this information is protected by the Federal Confidentiality of Alcohol and Drug Abuse Patient Records regulations: The Federal rules restrict any use of the information to criminally investigate or prosecute any alcohol or drug abuse patient.[facility] the event this information is protected by the Federal Confidentiality of Alcohol and Drug Abuse Patient Records regulations: The Federal rules restrict any use of the information to criminally investigate or prosecute any alcohol or drug abuse patient.[facility] the event this information is protected by the Federal Confidentiality of Alcohol and Drug Abuse Patient Records regulations: The Federal rules restrict any use of the information to criminally investigate or prosecute any alcohol or drug abuse patient.[facility] the event this information is protected by the Federal Confidentiality of Alcohol and Drug Abuse Patient Records regulations: The Federal rules restrict any use of the information to criminally investigate or prosecute any alcohol or drug abuse patient.[facility] the event this information is protected by the Federal Confidentiality of Alcohol and Drug Abuse Patient Records regulations: The Federal rules restrict any use of the information to criminally investigate or prosecute any alcohol or drug abuse patient.[facility] the event this information is protected by the Federal Confidentiality of Alcohol and Drug Abuse Patient Records regulations: The Federal rules restrict any use of the information to criminally investigate or prosecute any alcohol or drug abuse patient.[facility] the event this information is protected by the Federal Confidentiality of Alcohol and Drug Abuse Patient Records regulations: The Federal rules restrict any use of the information to criminally investigate or prosecute any alcohol or drug abuse patient.[facility] the event this information is protected by the Federal Confidentiality of Alcohol and Drug Abuse Patient Records regulations: The Federal rules restrict any use of the information to criminally investigate or prosecute any alcohol or drug abuse patient.[facility] the event this information is protected by the Federal Confidentiality of Alcohol and Drug Abuse Patient Records regulations: The Federal rules restrict any use of the information to criminally investigate or prosecute any alcohol or drug abuse patient.[facility] the event this information is protected by the Federal Confidentiality of Alcohol and Drug Abuse Patient Records regulations: The Federal rules restrict any use of the information to criminally investigate or prosecute any alcohol or drug abuse patient.[facility] the event this information is protected by the Federal Confidentiality of Alcohol and Drug Abuse Patient Records regulations: The Federal rules restrict any use of the information to criminally investigate or prosecute any alcohol or drug abuse patient.[facility] the event this information is protected by the Federal Confidentiality of Alcohol and Drug Abuse Patient Records regulations: The Federal rules restrict any use of the information to criminally investigate or prosecute any alcohol or drug abuse patient.[facility] the event this information is protected by the Federal Confidentiality of Alcohol and Drug Abuse Patient Records regulations: The Federal rules restrict any use of the information to criminally investigate or prosecute any alcohol or drug abuse patient.[facility] the event this information is protected by the Federal Confidentiality of Alcohol and Drug Abuse Patient Records regulations: The Federal rules restrict any use of the information to criminally investigate or prosecute any alcohol or drug abuse patient.[facility] the event this information is protected by the Federal Confidentiality of Alcohol and Drug Abuse Patient Records regulations: The Federal rules restrict any use of the information to criminally investigate or prosecute any alcohol or drug abuse patient.[facility] the event this information is protected by the Federal Confidentiality of Alcohol and Drug Abuse Patient Records regulations: The Federal rules restrict any use of the information to criminally investigate or prosecute any alcohol or drug abuse patient.[facility] the event this information is protected by the Federal Confidentiality of Alcohol and Drug Abuse Patient Records regulations: The Federal rules restrict any use of the information to criminally investigate or prosecute any alcohol or drug abuse patient.[facility] the event this information is protected by the Federal Confidentiality of Alcohol and Drug Abuse Patient Records regulations: The Federal rules restrict any use of the information to criminally investigate or prosecute any alcohol or drug abuse patient.[facility] the event this information is protected by the Federal Confidentiality of Alcohol and Drug Abuse Patient Records regulations: The Federal rules restrict any use of the information to criminally investigate or prosecute any alcohol or drug abuse patient.[facility] the event this information is protected by the Federal Confidentiality of Alcohol and Drug Abuse Patient Records regulations: The Federal rules restrict any use of the information to criminally investigate or prosecute any alcohol or drug abuse patient.[facility] the event this information is protected by the Federal Confidentiality of Alcohol and Drug Abuse Patient Records regulations: The Federal rules restrict any use of the information to criminally investigate or prosecute any alcohol or drug abuse patient.[facility] the event this information is protected by the Federal Confidentiality of Alcohol and Drug Abuse Patient Records regulations: The Federal rules restrict any use of the information to criminally investigate or prosecute any alcohol or drug abuse patient.[facility] the event this information is protected by the Federal Confidentiality of Alcohol and Drug Abuse Patient Records regulations: The Federal rules restrict any use of the information to criminally investigate or prosecute any alcohol or drug abuse patient.[facility] the event this information is protected by the Federal Confidentiality of Alcohol and Drug Abuse Patient Records regulations: The Federal rules restrict any use of the information to criminally investigate or prosecute any alcohol or drug abuse patient.[facility] the event this information is protected by the Federal Confidentiality of Alcohol and Drug Abuse Patient Records regulations: The Federal rules restrict any use of the information to criminally investigate or prosecute any alcohol or drug abuse patient.[facility] the event this information is protected by the Federal Confidentiality of Alcohol and Drug Abuse Patient Records regulations: The Federal rules restrict any use of the information to criminally investigate or prosecute any alcohol or drug abuse patient.[facility] the event this information is protected by the Federal Confidentiality of Alcohol and Drug Abuse Patient Records regulations: The Federal rules restrict any use of the information to criminally investigate or prosecute any alcohol or drug abuse patient.[facility] the event this information is protected by the Federal Confidentiality of Alcohol and Drug Abuse Patient Records regulations: The Federal rules restrict any use of the information to criminally investigate or prosecute any alcohol or drug abuse patient.[facility] the event this information is protected by the Federal Confidentiality of Alcohol and Drug Abuse Patient Records regulations: The Federal rules restrict any use of the information to criminally investigate or prosecute any alcohol or drug abuse patient.[facility] the event this information is protected by the Federal Confidentiality of Alcohol and Drug Abuse Patient Records regulations: The Federal rules restrict any use of the information to criminally investigate or prosecute any alcohol or drug abuse patient.[facility] the event this information is protected by the Federal Confidentiality of Alcohol and Drug Abuse Patient Records regulations: The Federal rules restrict any use of the information to criminally investigate or prosecute any alcohol or drug abuse patient.[facility] the event this information is protected by the Federal Confidentiality of Alcohol and Drug Abuse Patient Records regulations: The Federal rules restrict any use of the information to criminally investigate or prosecute any alcohol or drug abuse patient.[facility] the event this information is protected by the Federal Confidentiality of Alcohol and Drug Abuse Patient Records regulations: The Federal rules restrict any use of the information to criminally investigate or prosecute any alcohol or drug abuse patient.[facility] the event this information is protected by the Federal Confidentiality of Alcohol and Drug Abuse Patient Records regulations: The Federal rules restrict any use of the information to criminally investigate or prosecute any alcohol or drug abuse patient.[facility] Reason for Visit (unrecogniz ed section and content) Reason Comments Cough Reason Comments Shortness of Breath Cough chest tightness Reason Comments Establish Care Reason Comments Results Labs Reason Comments Yearly Exam With Mammogram Specialty Diagnoses / Procedures Referred By Alexus acosta Referred To Contact [facility] DEPARTMENT Diagnoses Screening for cervical cancer IUD (intrauterine device) in place Fertility testing Procedures CONSULT TO COVER CUTTER OFFICE/OUTPATIENT [facility] 60 MINUTES Donna William, TRANSPORTATION COORDINATOR.OUTSIDE PROPERTY AGENT [address] [place] [address] Emy Bianchi MD [address] [place] [address] Referral ID Status Reason Start Date Expiration Date V isits Requested Visits Authorized [id number] Closed PCP Requested Referral Auto-Generated Referral 03/11/2024 03/11/2025 1 1 Reason Comments Results Reason Onset Date Comments Refill Request 04/22/2024 Reason Comments Obesity Reason Comments Obesity Weight Loss Surgery Reason Comments Assessment Patient Education Reason Comments 3 month follow up Reason Comments Diabetes Reason Onset Date Comments Refill Request 07/14/2024 Reason Comments Diabetic Eye Exam Type 2 IDDM Specialty Diagnoses / Procedures Referred By Alexus acosta Referred To Contact Ophthalmology / [facility] DEPARTMENT Diagnoses Controlled type 2 diabetes mellitus without complication, with long-term current use of insulin (HCC) Procedures CONSULT TO OPHTHALMOLOGY OFFICE/OUTPATIENT [facility] 60 MINUTES Donna William, TRANSPORTATION COORDINATOR.OUTSIDE PROPERTY AGENT [address] [place] [address] [facility] [address] Referral ID Status Reason Start Date Expiration Date V isits Requested Visits Authorized [id number] Closed PCP Requested Referral 06/13/2024 06/13/2025 1 1 Reason Comments Refill Request Reason Comments Lab Orders Reason Comments New Patient Reason Comments Wrist/forearm Injury Never did EMG. Righ t wrist pain. Reason Onset Date Comments Refill Request 12/25/2024 Reason Onset Date Comments Refill Request 01/02/2025 Reason Comments Med Change Request Reason Comments Medication Problem Needs dispense as wr itten taken off Reason Onset Date Comments Refill Request 03/11/2025 FOR RECORDS PERTAINING TO PATIENTS WHO ARE OR HAVE BEEN ENROLLED IN A CHEMICAL DEPENDENCY/SUBSTANCEABUSE PROGRAM, SOME INFORMATION MAY BE OMITTED. This clinical summary was aggregated from multiple sources. Caution should be exercised in using it in the provision of clinical care. This summary normalizes information from multiple sources, and as a consequence, information in this document may materially change the coding, format and clinical context of patient data. In addition, data may be omitted in some cases. CLINICAL DECISIONS SHOULD BE BASED ON THE PRIMARY CLINICAL RECORDS. [facility] [employer] [facility]. provides no warranty or guarantee of the accuracy or completeness of information in this document.
[2025-09-08 18:25] LABS: Hematocrit 46.6 % (37-47); Hemoglobin 15.3 g/dL (12.0-15.0); Mean Corp Hgb Conc 32.8 g/dL (32-36); Mean Corpuscular Volume 89.8 fL (81-99); Mean Platelet Vol. 11.4 fl (6.2-12.0); Platelet Count 246 K/mm3 (150-450); RBC Distribution Width CV 13.0 % (11.6-14.6); RBC Distribution Width SD 42.3 fl (35.1-43.9); Red Blood Count 5.19 M/mm3 (4.2-5.4); White Blood Count 8.6 K/mm3 (4.4-11.0)
--- NOTE | 2025-09-08 18:25 | EDS_ITS ---
HPI History of Present Illness Chief Complaint: Hypertension Narrative Narrative: Chief complaint and HPI: 44-year-old female with past medical history of HTN on lisinopril and carvedilol, DM, hypothyroidism presents for evaluation of HTN. Patient states she was at the dentist office today secondary to dental pain when she had 2 high blood pressure readings. States her highest SBP was in the 170s. Patient was asymptomatic secondary to the hypertension. Patient states she does not monitor her blood pressure regularly at home. She denies any fever, chills, shortness of breath, chest pain abdominal pain, nausea, vomiting. Review of systems: See HPI Medications: As listed on the chart Allergies: As listed on the chart PFSH: Per chart Vital signs: As listed on the chart. Reviewed. Physical exam: Gen: A&O x3, NAD Head: Normocephalic, atraumatic Eyes: No sclera icterus, conjunctiva clear ENT: Moist mucous membranes Neck: Trachea midline CV: RRR, no murmurs, no peripheral edema Resp: Lungs CTA BL, no w/r/c Musc: Moves all extremities Skin: Warm, dry Neuro: Alert, oriented, grossly intact, sensation intact Psych: Cooperative, appropriate mood and affect [facility] History Diabetes Elevated LDL cholesterol level H/O blood clots HTN (hypertension) Home Medications ?Medication ?Instructions ?Recorded ?Last Taken ?Type carvedilol 6.25 mg tablet 6.25 mg PO BID 02/10/24 Unkn own History furosemide 20 mg tablet 20 mg PO DAILY 02/10/24 Unkn own History lisinopril 10 mg tablet 10 mg PO BID 02/10/24 Unknow n History metformin 500 mg tablet 500 mg PO BID 02/10/24 Unkno wn History potassium chloride 10 mEq 10 meq PO DAILY 02/10/24 Unk nown History tablet,extended release (Klor-Con) levofloxacin 750 mg tablet 750 mg PO Q24H #5 tabs 06/11 Unknown Rx Allergy/AdvReac Type Severity Reaction Status Date / Time loratadine (From Claritin) Allergy Swelling Verified 09/08/25 17:13 Surgical History Hx of tonsillectomy H/O dilation and curettage Social History Smoking Status: Former smoker EXAM Physical Exam Const Vital Signs: 09/08/25 17:13 09/08/25 17:15 09/08/25 18:14 Temperature 96.8 F L Temperature Source Temporal Pulse Rate 67 74 Respiratory Rate 18 Respiratory Effort Normal Respiratory Pattern Normal Blood Pressure 137/103 H 116/73 Blood Pressure Mean 114 87 Pulse Ox 98 Oxygen Delivery Method Room Air MDM MDM MDM Narrative Medical decision making narrative: 44-year-old female with past medical history of HTN on lisinopril and carvedilol, DM, hypothyroidism presents for evaluation of HTN. Patient states she was at the dentist office today secondary to dental pain when she had 2 high blood pressure readings. States her highest SBP was in the 170s. Patient states she does not monitor her blood pressure regularly at home. Patient was and is asymptomatic. On presentation, patient was mildly hypertensive at 137/103. She now has normal blood pressure 116/73. Hypertension may have been secondary to pain reaction, white coat syndrome, asymptomatic hypertension. Given that patient currently is normotensive and had asymptomatic hypertension, I do not think any further workup is needed. I do think the patient needs to monitor blood pressure at home with frequent checks and if remains high follow-up with her primary care physician. Patient is very anxious about this. We did discuss doing a basic hypertension workup which patient would like performed. This was ordered. CBC unremarkable. BMP unremarkable except for hyperglycemia. Patient is diabetic. States she has been monitoring her sugar. Troponin unremarkable. Patient has remained asymptomatic here in the emergency department. She is normotensive. Hypertension was secondary to asymptomatic hypertension versus pain response. Monitor blood pressure closely at home. Follow-up with primary care physician. She does not understand the plan. Return precautions explained. Patient stable to discharge home. EKG: Interpreted by me/EM physician: EKG shows normal sinus rhythm with a heart rate of 70. Nonspecific ST changes. No ST elevation. Diagnostic: Interpreted by me/EM physician: Chest x-ray without pneumonia, effusion, cardiomegaly, pneumothorax. Radiology in agreement. Impression: 1. Hypertension with history of hypertension 2. Hyperglycemia with history of diabetes Lab Data Labs: Laboratory Results - last 24 hr 09/08/25 09/08/25 17:37 17:52 WBC 8.6 RBC 5.19 Hgb 15.3 H Hct 46.6 MCV 89.8 MCH 29.5 MCHC 32.8 RDW Std Deviation 42.3 RDW Coeff of Nima 13.0 Plt Count 246 MPV 11.4 Sodium 137 Potassium 4.7 Chloride 101 Carbon Dioxide 22.7 Anion Gap 13 BUN 20 H Creatinine 1.15 Estim Creat Clear Calc 115.47 Est GFR (MDRD) Non-Af 61 BUN/Creatinine Ratio 17.2 Glucose 390 H Calcium 9.5 Troponin T High Sens < 6 POC Glucose 331 H Radiography Diagnostic Testing: Clinical Impression(s) from Imaging Studies Chest X-Ray 09/08/25 18:08 IMPRESSION: No acute cardiopulmonary disease. Reading Location: [id number] Discharge Plan Triage Chief Complaint: Hypertension ED Provider: Marcelo Siu Dx/Rx/DC Orders Prescriptions: No Action levofloxacin 750 mg tablet 750 mg PO Q24H Qty: 5 0RF furosemide 20 mg tablet 20 mg PO DAILY carvedilol 6.25 mg tablet 6.25 mg PO BID Rx Instructions: must administer with a meal/food potassium chloride [Klor-Con 10] 10 mEq tablet extended release 10 meq PO DAILY metformin 500 mg tablet 500 mg PO BID lisinopril 10 mg tablet 10 mg PO BID Primary Care Provider: Nae Vivas NP Referrals: Nae Vivas NP, ADMINISTRATIVE DIRECTOR-C [Primary Care Provider, Medical] Print Language: Cypriot
[2025-09-08 18:38] LABS: Anion Gap 13 (5-15); BUN 20 mg/dL (4-19); BUN/Creat Ratio 17.2 RATIO (10-20); Calcium,Total 9.5 mg/dL (7.6-11.0); Carbon Dioxide 22.7 mmol/L (21.0-32.0); Chloride 101 mmol/L (98-108); Estimated Creatinine Clearance 115.47 ml/min (50-250); Glucose 390 mg/dL (70-99); Potassium 4.7 mmol/L (3.3-5.1)
[2025-09-08 19:42] LABS: Troponin T High Sensitivity < 6 ng/L (<=14)
[2025-09-08 20:00] VITALS: BP 113/75; PULSE 74; RESP 18; TEMP 36.6; O2SAT 100
== END 2025-09-08 20:01 | disposition home or self-care (01) ==
PROVIDERS: Emergency Provider Surgery; PCP Nurse Practitioner Family; Visit Provider Surgery
DX: I10 Essential (primary) hypertension (principal); E11.65 Type 2 diabetes mellitus with hyperglycemia; E78.00 Pure hypercholesterolemia, unspecified; E03.9 Hypothyroidism, unspecified; Z79.84 Long term (current) use of oral hypoglycemic drugs; Z79.899 Other long term (current) drug therapy; Z87.891 Personal history of nicotine dependence; Z86.718 Personal history of other venous thrombosis and embolism
CPT/HCPCS: 71046; 80048; 82962; 84484; 85027; 93005; 99284; A4216

== ENCOUNTER 2025-09-27 13:35 | Emergency (ER) | payer MEDICAID, SELFPAY ==
[2025-09-27 13:35] VITALS: BP 161/93; PULSE 88; RESP 20; TEMP 36.8; O2SAT 98
--- NOTE | 2025-09-27 15:35 | RAD_ITS ---
PROCEDURE: RAD/Chest PA and Lateral
--- NOTE | 2025-09-27 15:36 | EX.ED.VIS.UR ---
HPI HPI - URI History of Present Illness Chief Complaint: Cold Sx Informant: patient Onset/Context/Timing Onset: Days (3) Context: Gradual Onset Timing: Continuous Quality: Fatigue Location: Generalized Worsened by: - (Laying down) Relieved by: - (Zicam) Associated Symptoms Associated Symptoms: Positive for Shortness of Breath and Nonproductive cough; Negative for Nasal Congestion, Headache, Sinus Pressure, Myalgias, Nausea, Vomiting, Diarrhea, Chest Pain, Hemoptysis or Productive Cough Narrative Narrative: Patient presents with sore throat, cough, and fatigue that has been getting worse over the past 3 days. Patient states it is worse when she lays down. Patient states she took Zicam yesterday which seemed to help. Patient admits to cough but denies any sputum production. Patient admits to some shortness of breath. Patient denies any fevers or chills. Patient denies any nausea or vomiting. Patient states she feels fatigued all over. Patient denies any chest pain. ROS ROS ED Constitutional Constitutional ED: Denies chills or fever(s) Eyes Eyes: Denies blurry vision or change in vision ENT ENT ED: Reports sore throat; Denies rhinorrhea Cardiovascular Cardiovascular: Denies chest pain or palpitations Respiratory/Chest Respiratory/Chest: Reports cough and dyspnea Gastrointestinal Gastrointestinal: Denies nausea or vomiting Genitourinary Genitourinary ED: Denies dysuria or hematuria Musculoskeletal Musculoskeletal: Denies back pain or neck pain Integumentary Denies abscess or rash Neurologic Neurologic: Denies headache(s) or weakness Allergic/Immunologic Allergic/Immunologic ED: Denies mouth swelling or urticaria [facility] Medical History H/O blood clots Elevated LDL cholesterol level Diabetes HTN (hypertension) Home Medications ?Medication ?Instructions ?Recorded ?Last Taken ?Type carvedilol 6.25 mg tablet 6.25 mg PO BID 02/10/24 Unknown History furosemide 20 mg tablet 20 mg PO DAILY 02/10/24 Unknown History lisinopril 10 mg tablet 10 mg PO BID 02/10/24 Unknown History metformin 500 mg tablet 500 mg PO BID 02/10/24 Unknown History potassium chloride 10 mEq 10 meq PO DAILY 02/10/24 Unknown History tablet,extended release (Klor-Con) levofloxacin 750 mg tablet 750 mg PO Q24H #5 tabs 02/24/24 Unknown Rx Allergy/AdvReac Type Severity Reaction Status Date / Time loratadine (From Claritin) Allergy Swelling Verified 09/27/25 13:36 Surgical History Hx of tonsillectomy H/O dilation and curettage Social History Smoking Status: Former smoker EXAM Physical Exam Const Vital Signs: 09/27/25 13:35 09/27/25 15:17 Temperature 98.2 F Temperature Source Oral Pulse Rate 88 Respiratory Rate 20 H Respiratory Effort Non-Labored Blood Pressure 161/93 H Blood Pressure Mean 115 Pulse Ox 98 Oxygen Delivery Method Room Air Positive well nourished and well developed General Appearance ED: well developed and NAD HEENT Reports moist mucous membranes normocephalic and atraumatic Neck supple and no JVD Resp normal respiratory effort and clear to auscultation bilaterally Auscultation: diminished lung sounds Cardio Rate: regular rate Rhythm: regular rhythm GI non-tender and non-distended Palpation: soft Neuro oriented x3, CN's II-XII intact bilaterally and no sensory deficits noted Sensorium / Orientation: alert Motor Exam: strength 5/5 throughout Psych mental status grossly normal MDM MDM MDM Narrative Medical decision making narrative: Differential diagnose includes pneumonia, bronchitis, and viral upper respiratory infection. Chest x-ray will be obtained to assess for pneumonia bronchitis. COVID-19, influenza, and RSV PCR will be obtained to assess for viral illness. Lab Data Lab results narrative: COVID-19 PCR was reviewed and was negative. Influenza PCR was reviewed and was negative for influenza A and influenza B. RSV PCR was reviewed and was negative. Radiography Chest X-Ray - ED: 2 View, Read by ED Physician, Read by Radiologist and No Acute Disease Diagnostic Testing: Clinical Impression(s) from Imaging Studies Chest X-Ray 09/27/25 15:35 IMPRESSION: No evidence of acute pulmonary disease. Reading Location: [facility] PA and lateral chest x-ray was obtained. There are 2 views. On my independent interpretation, lung grider are clear. There is normal cardiac silhouette. Bony thorax is normal. There is no acute process noted. Radiologist also interpreted the x-ray and agrees. Treatment and Re-Evaluation Narrative: Patient was advised of her findings. Patient was instructed to drink plenty of fluids. Patient was instructed to take Tylenol or ibuprofen as needed for any headaches or fevers. Patient was instructed to follow-up with her primary care physician in 5 to 7 days. Patient understood and was agreeable with the plan. All questions were answered. Discharge Plan Triage Chief Complaint: Cold Sx ED Provider: Jesus Calloway Dx/Rx/DC Orders Clinical Impression: Viral upper respiratory tract infection, Elevated blood pressure reading Instructions: ED URI, Viral, No Abx (Adult) Prescriptions: No Action levofloxacin 750 mg tablet 750 mg PO Q24H Qty: 5 0RF furosemide 20 mg tablet 20 mg PO DAILY carvedilol 6.25 mg tablet 6.25 mg PO BID Rx Instructions: must administer with a meal/food potassium chloride [Klor-Con 10] 10 mEq tablet extended release 10 meq PO DAILY metformin 500 mg tablet 500 mg PO BID lisinopril 10 mg tablet 10 mg PO BID Primary Care Provider: Nae Vivas NP Referrals: Nae Vivas NP, OFFICE TECHNICIAN-C [Primary Care Provider, Medical] - 5-7 Days Print Language: Korean Disposition Disposition: Home, Self Care
[2025-09-27 17:35] VITALS: TEMP 36.8
== END 2025-09-27 18:09 | disposition home or self-care (01) ==
PROVIDERS: Emergency Provider Emergency Medicine; PCP Nurse Practitioner Family; Visit Provider Emergency Medicine
DX: J06.9 Acute upper respiratory infection, unspecified (principal); E11.9 Type 2 diabetes mellitus without complications; I10 Essential (primary) hypertension; Z79.84 Long term (current) use of oral hypoglycemic drugs; Z79.899 Other long term (current) drug therapy; Z87.891 Personal history of nicotine dependence
CPT/HCPCS: 71046; 87631; 99282